=== PATIENT | male | born 1960 | race Caucasian/White ===

== ENCOUNTER 2021-10-30 09:44 | Inpatient (IN) | payer SELFPAY ==
[2021-10-30] MEDS ORDERED: Sodium Chloride 0.9% 10 ML Syringe FLUSH PRN (10:16)
[2021-10-30] MEDS ORDERED: Ondansetron 4 MG/2 ML SDV IVPUSH ONE (10:16)
[2021-10-30] MEDS ORDERED: Sodium Chloride 0.9% 1,000 ML IV SCH (10:30)
--- NOTE | 2021-10-30 10:47 | EDM.PDOC ---
ED HPI GENERAL MEDICAL PROBLEM - General Chief Complaint: Gastrointestinal Problem Stated Complaint: VOMITING Time Seen by Provider: 10/30/21 10:47 - History of Present Illness INITIAL COMMENTS - FREE TEXT/NARRATIVE: 61-year-old male presents the emergency room with nausea and vomiting. This started this last . On Tuesday's felt bad enough that he stopped his Metformin. He has not had much to eat or drink since that time. Since Tuesday he has developed quite a bit of back pain. He has not had chest pain or chest pressure with this. However he is a diabetic. Patient has not had the vaccine for Covid. He has had a mild cough nonproductive. He has had diminished appetite but no significant nausea or vomiting. No diarrhea no loss of taste or smell - Related Data Allergies Allergy/AdvReac Type Severity Reaction Status Date / Time No Known Allergies Allergy Verified 10/30/21 10:49 ED ROS GENERAL - Review of Systems Review Of Systems: See Below Constitutional: Reports: No Symptoms HEENT: Reports: No Symptoms Respiratory: Reports: Cough. Denies: Shortness of Breath, Pleuritic Chest Pain Cardiovascular: Reports: No Symptoms Endocrine: Reports: No Symptoms GI/Abdominal: Reports: No Symptoms : Reports: No Symptoms Musculoskeletal: Reports: No Symptoms Skin: Reports: No Symptoms Neurological: Reports: No Symptoms ED EXAM, GENERAL - Physical Exam Exam: See Below Exam Limited By: No Limitations General Appearance: Alert, No Apparent Distress Eye Exam: Bilateral Eye: EOMI, Normal Inspection, PERRL Ears: Normal External Exam, Normal Canal, Hearing Grossly Normal, Normal TMs Nose: Normal Inspection, Normal Mucosa, No Blood Throat/Mouth: Normal Inspection, Normal Lips, Normal Gums, Normal Oropharynx, Normal Voice, No Airway Compromise Head: Atraumatic, Normocephalic Neck: Normal Inspection, Supple, Non-Tender, Full Range of Motion, Other (Patient has pain at the base of his neck down into the upper thoracic spine no spinous process discomfort with palpation). No: Lymphadenopathy (L), Lymphadenopathy (R) Respiratory/Chest: No Respiratory Distress, Lungs Clear, Normal Breath Sounds Cardiovascular: Regular Rate, Rhythm, No Edema, No Murmur GI/Abdominal: Normal Bowel Sounds, Soft, Non-Tender Back Exam: Normal Inspection. No: CVA Tenderness (L), CVA Tenderness (R) Extremities: Normal Inspection, No Pedal Edema Neurological: Alert, Oriented, Normal Cognition Skin Exam: Warm, Dry, Intact, Normal Color, No Rash Course - Vital Signs Last Recorded V/S: Last Vital Signs Temp 36.5 C 10/30/21 10:23 Pulse 115 H 10/30/21 15:45 Resp 31 H 10/30/21 15:45 BP 133/60 10/30/21 15:45 Pulse Ox 100 10/30/21 15:45 - Orders/Labs/Meds Orders: Active Orders 24 hr Category Date Time Status Accu Check [Blood Glucose Check, Bedside] [RC] Q1HR Care 10/30/21 11:06 Active Communication Order [RC] ASDIRECTED Care 10/30/21 10:18 Active Communication Order [RC] ASDIRECTED Care 10/30/21 10:18 Active Communication Order [RC] ASDIRECTED Care 10/30/21 10:18 Active Communication Order [RC] ASDIRECTED Care 10/30/21 10:18 Active Orthostatic Vital Signs [RC] ASDIRECTED Care 10/30/21 10:18 Active Peripheral IV Care [RC] . DIRECTED Care 10/30/21 10:18 Active BASIC METABOLIC PANEL,BMP [CHEM] Timed Lab 10/30/21 16:30 Ordered MAGNESIUM [CHEM] Timed Lab 10/30/21 16:30 Ordered UA RFX GUIDO AND CULT IF INDIC [URIN] Stat Lab 10/30/21 13:19 Ordered Dextrose 5%-0.9% NaCl with KCl [D5 NS with 20 mEq KCl] Med 10/30/21 15:30 Ordered 1,000 ml IV ASDIRECTED Insulin Regular, Human [HumuLIN R] 100 unit Med 10/30/21 16:00 Ordered Sodium Chloride 0.9% [Normal Saline] 99 ml IV TITRATE Sodium Chloride 0.9% [Saline Flush] Med 10/30/21 10:16 Active 10 ml FLUSH ASDIRECTED PRN Peripheral IV Insertion Adult [OM.PC] Stat Oth 10/30/21 10:18 Ordered Medication Orders Potassium Chloride/Dextrose/Sod Cl (D5 Ns With 20 Meq Kcl) 1,000 mls @ 200 mls/hr IV ASDIRECTED JUAN CARLOS Last Admin: 10/30/21 15:50 Dose: 200 mls/hr Documented by: ISHA Insulin Human Regular 100 unit (/ Sodium Chloride) 100 mls @ 1.27 mls/hr IV TITRATE JUAN CARLOS; Protocol Last Admin: 10/30/21 16:18 Dose: 0.02 units/kg/hr, 1.27 mls/hr Documented by: Sodium Chloride (Sodium Chloride 0.9% 10 Ml Syringe) 10 ml FLUSH ASDIRECTED PRN PRN Reason: Keep Vein Open Last Admin: 10/30/21 10:58 Dose: 10 ml Documented by: ROBINCHDavonte Labs: Laboratory Tests 10/30/21 10/30/21 10/30/21 Range/Units 10:17 10:20 10:36 WBC (4.23-9.07) K/mm3 RBC (4.63-6.08) M/mm3 Hgb (13.7-17.5) gm/dl Hct (40.1-51.0) % MCV (79.0-92.2) fl MCH (25.7-32.2) pg MCHC (32.2-35.5) g/dl RDW Std Deviation (35.1-43.9) fL Plt Count (163-337) K/mm3 MPV (9.4-12.3) fl Neut % (Auto) (34.0-67.9) % Lymph % (Auto) (21.8-53.1) % Wilkin % (Auto) (5.3-12.2) % Eos % (Auto) (0.8-7.0) Baso % (Auto) (0.1-1.2) % Neut # (Auto) (1.78-5.38) K/mm3 Lymph # (Auto) (1.32-3.57) K/mm3 Wilkin # (Auto) (0.30-0.82) K/mm3 Eos # (Auto) (0.04-0.54) K/mm3 Baso # (Auto) (0.01-0.08) K/mm3 D-Dimer, Quantitative (0.19-0.50) mg/L Puncture Site ABG pH (7.35-7.45) ABG pCO2 (35.0-45.0) mmHg ABG pO2 (80.0-100.0) mmHg ABG HCO3 (22.0-26.0) meq/L ABG O2 Saturation (96.0-97.0) % ABG Base Excess (-2-2.0) Adalberto Test O2 Delivery Device Oxygen Flow Rate Sodium (136-145) mEq/L Potassium (3.5-5.1) mEq/L Chloride (98-107) mEq/L Carbon Dioxide (21-32) mEq/L Anion Gap (5-15) BUN (7-18) mg/dL Creatinine (0.7-1.3) mg/dL Est Cr Clr Drug Dosing mL/min Estimated GFR (MDRD) (>60) mL/min BUN/Creatinine Ratio (14-18) Glucose (70-99) mg/dL POC Glucose 427 H* (70-99) mg/dL Calcium (8.5-10.1) mg/dL Magnesium (1.8-2.4) mg/dL Ferritin (26-388) ng/ml Total Bilirubin (0.2-1.0) mg/dL AST (15-37) U/L ALT (16-63) U/L Alkaline Phosphatase (46-116) U/L Lactate Dehydrogenase (85-227) U/L C-Reactive Protein (<1.0) mg/dL Total Protein (6.4-8.2) g/dl Albumin (3.4-5.0) g/dl Globulin gm/dL Albumin/Globulin Ratio (1-2) Lipase (73-393) U/L Ketones 19.7 (0.0-0.3) mM SARS-CoV-2 RNA (ALIRIO) Positive H (NEGATIVE) 10/30/21 10/30/21 10/30/21 Range/Units 10:37 10:37 10:37 WBC 7.81 (4.23-9.07) K/mm3 RBC 4.79 (4.63-6.08) M/mm3 Hgb 15.5 D (13.7-17.5) gm/dl Hct 44.9 (40.1-51.0) % MCV 93.7 H (79.0-92.2) fl MCH 32.4 H (25.7-32.2) pg MCHC 34.5 (32.2-35.5) g/dl RDW Std Deviation 44.0 H (35.1-43.9) fL Plt Count 304 (163-337) K/mm3 MPV 9.7 (9.4-12.3) fl Neut % (Auto) 78.9 H (34.0-67.9) % Lymph % (Auto) 8.3 L (21.8-53.1) % Wilkin % (Auto) 12.7 H (5.3-12.2) % Eos % (Auto) 0 L (0.8-7.0) Baso % (Auto) 0.0 L (0.1-1.2) % Neut # (Auto) 6.16 H (1.78-5.38) K/mm3 Lymph # (Auto) 0.65 L (1.32-3.57) K/mm3 Wilkin # (Auto) 0.99 H (0.30-0.82) K/mm3 Eos # (Auto) 0.00 L (0.04-0.54) K/mm3 Baso # (Auto) 0.00 L (0.01-0.08) K/mm3 D-Dimer, Quantitative (0.19-0.50) mg/L Puncture Site ABG pH (7.35-7.45) ABG pCO2 (35.0-45.0) mmHg ABG pO2 (80.0-100.0) mmHg ABG HCO3 (22.0-26.0) meq/L ABG O2 Saturation (96.0-97.0) % ABG Base Excess (-2-2.0) Adalberto Test O2 Delivery Device Oxygen Flow Rate Sodium 135 L (136-145) mEq/L Potassium 5.6 H D (3.5-5.1) mEq/L Chloride 92 L D (98-107) mEq/L Carbon Dioxide 9 L D (21-32) mEq/L Anion Gap 39.6 H (5-15) BUN 44 H D (7-18) mg/dL Creatinine 2.1 H (0.7-1.3) mg/dL Est Cr Clr Drug Dosing 32.76 mL/min Estimated GFR (MDRD) 32 (>60) mL/min BUN/Creatinine Ratio 21.0 H (14-18) Glucose 483 H* (70-99) mg/dL POC Glucose (70-99) mg/dL Calcium 8.9 (8.5-10.1) mg/dL Magnesium 1.8 (1.8-2.4) mg/dL Ferritin (26-388) ng/ml Total Bilirubin 0.6 (0.2-1.0) mg/dL AST 14 L (15-37) U/L ALT 19 (16-63) U/L Alkaline Phosphatase 95 (46-116) U/L Lactate Dehydrogenase 196 (85-227) U/L C-Reactive Protein 1.9 H* (<1.0) mg/dL Total Protein 8.0 (6.4-8.2) g/dl Albumin 3.6 (3.4-5.0) g/dl Globulin 4.4 gm/dL Albumin/Globulin Ratio 0.8 L (1-2) Lipase 139 (73-393) U/L Ketones (0.0-0.3) mM SARS-CoV-2 RNA (ALIRIO) (NEGATIVE) 10/30/21 10/30/21 10/30/21 Range/Units 10:37 10:37 10:59 WBC (4.23-9.07) K/mm3 RBC (4.63-6.08) M/mm3 Hgb (13.7-17.5) gm/dl Hct (40.1-51.0) % MCV (79.0-92.2) fl MCH (25.7-32.2) pg MCHC (32.2-35.5) g/dl RDW Std Deviation (35.1-43.9) fL Plt Count (163-337) K/mm3 MPV (9.4-12.3) fl Neut % (Auto) (34.0-67.9) % Lymph % (Auto) (21.8-53.1) % Wilkin % (Auto) (5.3-12.2) % Eos % (Auto) (0.8-7.0) Baso % (Auto) (0.1-1.2) % Neut # (Auto) (1.78-5.38) K/mm3 Lymph # (Auto) (1.32-3.57) K/mm3 Wilkin # (Auto) (0.30-0.82) K/mm3 Eos # (Auto) (0.04-0.54) K/mm3 Baso # (Auto) (0.01-0.08) K/mm3 D-Dimer, Quantitative 1.21 H (0.19-0.50) mg/L Puncture Site Lt radial ABG pH 7.15 L* (7.35-7.45) ABG pCO2 10.2 L* (35.0-45.0) mmHg ABG pO2 103.0 H (80.0-100.0) mmHg ABG HCO3 3.6 L (22.0-26.0) meq/L ABG O2 Saturation 97.9 H (96.0-97.0) % ABG Base Excess -25.1 L (-2-2.0) Adalberto Test O2 Delivery Device Room air Oxygen Flow Rate 0.0 Sodium (136-145) mEq/L Potassium (3.5-5.1) mEq/L Chloride (98-107) mEq/L Carbon Dioxide (21-32) mEq/L Anion Gap (5-15) BUN (7-18) mg/dL Creatinine (0.7-1.3) mg/dL Est Cr Clr Drug Dosing mL/min Estimated GFR (MDRD) (>60) mL/min BUN/Creatinine Ratio (14-18) Glucose (70-99) mg/dL POC Glucose (70-99) mg/dL Calcium (8.5-10.1) mg/dL Magnesium (1.8-2.4) mg/dL Ferritin 406 H (26-388) ng/ml Total Bilirubin (0.2-1.0) mg/dL AST (15-37) U/L ALT (16-63) U/L Alkaline Phosphatase (46-116) U/L Lactate Dehydrogenase (85-227) U/L C-Reactive Protein (<1.0) mg/dL Total Protein (6.4-8.2) g/dl Albumin (3.4-5.0) g/dl Globulin gm/dL Albumin/Globulin Ratio (1-2) Lipase (73-393) U/L Ketones (0.0-0.3) mM SARS-CoV-2 RNA (ALIRIO) (NEGATIVE) 10/30/21 10/30/21 10/30/21 Range/Units 11:23 12:23 12:24 WBC (4.23-9.07) K/mm3 RBC (4.63-6.08) M/mm3 Hgb (13.7-17.5) gm/dl Hct (40.1-51.0) % MCV (79.0-92.2) fl MCH (25.7-32.2) pg MCHC (32.2-35.5) g/dl RDW Std Deviation (35.1-43.9) fL Plt Count (163-337) K/mm3 MPV (9.4-12.3) fl Neut % (Auto) (34.0-67.9) % Lymph % (Auto) (21.8-53.1) % Wilkin % (Auto) (5.3-12.2) % Eos % (Auto) (0.8-7.0) Baso % (Auto) (0.1-1.2) % Neut # (Auto) (1.78-5.38) K/mm3 Lymph # (Auto) (1.32-3.57) K/mm3 Wilkin # (Auto) (0.30-0.82) K/mm3 Eos # (Auto) (0.04-0.54) K/mm3 Baso # (Auto) (0.01-0.08) K/mm3 D-Dimer, Quantitative (0.19-0.50) mg/L Puncture Site ABG pH (7.35-7.45) ABG pCO2 (35.0-45.0) mmHg ABG pO2 (80.0-100.0) mmHg ABG HCO3 (22.0-26.0) meq/L ABG O2 Saturation (96.0-97.0) % ABG Base Excess (-2-2.0) Adalberto Test O2 Delivery Device Oxygen Flow Rate Sodium 138 (136-145) mEq/L Potassium 4.3 (3.5-5.1) mEq/L Chloride 99 (98-107) mEq/L Carbon Dioxide 9 L (21-32) mEq/L Anion Gap 34.3 H (5-15) BUN 42 H (7-18) mg/dL Creatinine 1.9 H (0.7-1.3) mg/dL Est Cr Clr Drug Dosing 36.21 mL/min Estimated GFR (MDRD) 36 (>60) mL/min BUN/Creatinine Ratio 22.1 H (14-18) Glucose 347 H (70-99) mg/dL POC Glucose 482 H* 371 H (70-99) mg/dL Calcium 8.5 (8.5-10.1) mg/dL Magnesium (1.8-2.4) mg/dL Ferritin (26-388) ng/ml Total Bilirubin (0.2-1.0) mg/dL AST (15-37) U/L ALT (16-63) U/L Alkaline Phosphatase (46-116) U/L Lactate Dehydrogenase (85-227) U/L C-Reactive Protein (<1.0) mg/dL Total Protein (6.4-8.2) g/dl Albumin (3.4-5.0) g/dl Globulin gm/dL Albumin/Globulin Ratio (1-2) Lipase (73-393) U/L Ketones (0.0-0.3) mM SARS-CoV-2 RNA (ALIRIO) (NEGATIVE) 10/30/21 10/30/21 10/30/21 Range/Units 13:32 14:06 14:45 WBC (4.23-9.07) K/mm3 RBC (4.63-6.08) M/mm3 Hgb (13.7-17.5) gm/dl Hct (40.1-51.0) % MCV (79.0-92.2) fl MCH (25.7-32.2) pg MCHC (32.2-35.5) g/dl RDW Std Deviation (35.1-43.9) fL Plt Count (163-337) K/mm3 MPV (9.4-12.3) fl Neut % (Auto) (34.0-67.9) % Lymph % (Auto) (21.8-53.1) % Wilkin % (Auto) (5.3-12.2) % Eos % (Auto) (0.8-7.0) Baso % (Auto) (0.1-1.2) % Neut # (Auto) (1.78-5.38) K/mm3 Lymph # (Auto) (1.32-3.57) K/mm3 Wilkin # (Auto) (0.30-0.82) K/mm3 Eos # (Auto) (0.04-0.54) K/mm3 Baso # (Auto) (0.01-0.08) K/mm3 D-Dimer, Quantitative (0.19-0.50) mg/L Puncture Site ABG pH 7.18 L* (7.35-7.45) ABG pCO2 15.8 L* (35.0-45.0) mmHg ABG pO2 144.0 H (80.0-100.0) mmHg ABG HCO3 5.7 L (22.0-26.0) meq/L ABG O2 Saturation 98.4 H (96.0-97.0) % ABG Base Excess -21.7 L (-2-2.0) Adalberto Test Positive O2 Delivery Device Oxygen Flow Rate Sodium (136-145) mEq/L Potassium (3.5-5.1) mEq/L Chloride (98-107) mEq/L Carbon Dioxide (21-32) mEq/L Anion Gap (5-15) BUN (7-18) mg/dL Creatinine (0.7-1.3) mg/dL Est Cr Clr Drug Dosing mL/min Estimated GFR (MDRD) (>60) mL/min BUN/Creatinine Ratio (14-18) Glucose (70-99) mg/dL POC Glucose 215 H 182 H (70-99) mg/dL Calcium (8.5-10.1) mg/dL Magnesium (1.8-2.4) mg/dL Ferritin (26-388) ng/ml Total Bilirubin (0.2-1.0) mg/dL AST (15-37) U/L ALT (16-63) U/L Alkaline Phosphatase (46-116) U/L Lactate Dehydrogenase (85-227) U/L C-Reactive Protein (<1.0) mg/dL Total Protein (6.4-8.2) g/dl Albumin (3.4-5.0) g/dl Globulin gm/dL Albumin/Globulin Ratio (1-2) Lipase (73-393) U/L Ketones (0.0-0.3) mM SARS-CoV-2 RNA (ALIRIO) (NEGATIVE) 10/30/21 Range/Units 15:56 WBC (4.23-9.07) K/mm3 RBC (4.63-6.08) M/mm3 Hgb (13.7-17.5) gm/dl Hct (40.1-51.0) % MCV (79.0-92.2) fl MCH (25.7-32.2) pg MCHC (32.2-35.5) g/dl RDW Std Deviation (35.1-43.9) fL Plt Count (163-337) K/mm3 MPV (9.4-12.3) fl Neut % (Auto) (34.0-67.9) % Lymph % (Auto) (21.8-53.1) % Wilkin % (Auto) (5.3-12.2) % Eos % (Auto) (0.8-7.0) Baso % (Auto) (0.1-1.2) % Neut # (Auto) (1.78-5.38) K/mm3 Lymph # (Auto) (1.32-3.57) K/mm3 Wilkin # (Auto) (0.30-0.82) K/mm3 Eos # (Auto) (0.04-0.54) K/mm3 Baso # (Auto) (0.01-0.08) K/mm3 D-Dimer, Quantitative (0.19-0.50) mg/L Puncture Site ABG pH (7.35-7.45) ABG pCO2 (35.0-45.0) mmHg ABG pO2 (80.0-100.0) mmHg ABG HCO3 (22.0-26.0) meq/L ABG O2 Saturation (96.0-97.0) % ABG Base Excess (-2-2.0) Adalberto Test O2 Delivery Device Oxygen Flow Rate Sodium (136-145) mEq/L Potassium (3.5-5.1) mEq/L Chloride (98-107) mEq/L Carbon Dioxide (21-32) mEq/L Anion Gap (5-15) BUN (7-18) mg/dL Creatinine (0.7-1.3) mg/dL Est Cr Clr Drug Dosing mL/min Estimated GFR (MDRD) (>60) mL/min BUN/Creatinine Ratio (14-18) Glucose (70-99) mg/dL POC Glucose 210 H (70-99) mg/dL Calcium (8.5-10.1) mg/dL Magnesium (1.8-2.4) mg/dL Ferritin (26-388) ng/ml Total Bilirubin (0.2-1.0) mg/dL AST (15-37) U/L ALT (16-63) U/L Alkaline Phosphatase (46-116) U/L Lactate Dehydrogenase (85-227) U/L C-Reactive Protein (<1.0) mg/dL Total Protein (6.4-8.2) g/dl Albumin (3.4-5.0) g/dl Globulin gm/dL Albumin/Globulin Ratio (1-2) Lipase (73-393) U/L Ketones (0.0-0.3) mM SARS-CoV-2 RNA (ALIRIO) (NEGATIVE) Meds: Medications Generic Name Dose Route Start Last Admin Trade Name Odell PRN Reason Stop Dose Admin Potassium Chloride/Dextrose/Sod Cl 1,000 mls @ 200 mls/hr 10/30/21 15:30 10/30/21 15:50 D5 Ns With 20 Meq Kcl IV 200 mls/hr ASDIRECTED JUAN CARLOS Administration Insulin Human Regular 100 unit 100 mls @ 1.27 mls/hr 10/30/21 16:00 10/30/21 16:18 / Sodium Chloride IV 0.02 units/kg/hr TITRATE JUAN CARLOS 1.27 mls/hr Administration Protocol 0.02 UNITS/KG/HR Sodium Chloride 10 ml 10/30/21 10:16 10/30/21 10:58 Sodium Chloride 0.9% 10 Ml Syringe FLUSH 10 ml ASDIRECTED PRN Administration Keep Vein Open Discontinued Medications Generic Name Dose Route Start Last Admin Trade Name Odell PRN Reason Stop Dose Admin Sodium Chloride 1,000 mls @ 999 mls/hr 10/30/21 10:30 10/30/21 10:56 Normal Saline IV 10/30/21 11:29 999 mls/hr Q1H JUAN CARLOS Administration Insulin Human Regular 100 unit 100 mls @ 1.27 mls/hr 10/30/21 11:15 10/30/21 11:32 / Sodium Chloride IV 0.1 units/kg/hr TITRATE JUAN CARLOS 6.35 mls/hr Administration Protocol 0.02 UNITS/KG/HR Sodium Chloride 1,000 mls @ 999 mls/hr 10/30/21 12:27 10/30/21 12:34 Normal Saline IV 10/30/21 13:27 999 mls/hr ONETIME ONE Administration Sodium Chloride 1,000 mls @ 999 mls/hr 10/30/21 14:06 10/30/21 14:15 Normal Saline IV 10/30/21 15:06 999 mls/hr ONETIME ONE Administration Insulin Human Regular 6 unit 10/30/21 11:04 10/30/21 11:23 Insulin Regular, Human 100 Units/Ml 3 Ml Vial IV 10/30/21 11:05 6 unit ONETIME ONE Administration Ondansetron HCl 4 mg 10/30/21 10:16 10/30/21 10:57 Ondansetron 4 Mg/2 Ml Sdv IVPUSH 10/30/21 10:17 4 mg ONETIME ONE Administration - Re-Assessments/Exams Free Text/Narrative Re-Assessment/Exam: 10/30/21 14:14 Patient was started on an insulin bolus and drip his blood sugars dropped much quicker than I expected him to the drip was stopped. He has had 2 L in and feels much better his blood sugar was 215 down from 483 the drip was stopped I expect him to continue going down we will keep a close eye on this. The patient feels much better he still has a little bit of a sore throat and his back pain is gone. We will recheck his ABGs give him 1/3 L of NS as he is still dry. If his ABGs show fair amount of correction anticipate admission, hopefully here. 10/30/21 16:01 Patient's ketones are still too high. His blood sugar came down nicely however we have still got some work to do. Case was reviewed with Dr. Cruz, who thinks we have a bed for the patient. we will continue fluids D5 NS with 20 of K2 100 cc an hour with a light insulin drip 0.02 units/kg/h with a very close eye on his blood sugar and electrolytes. 10/30/21 16:22 I had a discussion with Dr. Cruz with this patient's high risk for complication secondary to the COVID infection we discussed the pros and cons we will offer him Regeneron. I discussed this with the patient and he would like to proceed with this understanding and is available on a emergency use basis. I gave him the fact sheet and mentioned in no uncertain terms that it is approved on an emergency use authorization and has not been fully tested or reviewed by the FDA did discuss potential risks and adverse reactions and discussed other treatment options he has no questions to ask and would like to pursue this treatment at this time. Departure - Departure Time of Disposition: 16:07 Disposition: Admitted As Inpatient 65 Clinical Impression: Diabetic ketoacidosis associated with type 2 diabetes mellitus - Discharge Information Referrals: PCP,None [Primary Care Provider] - Forms: ED Department Discharge Sepsis Event Note (ED) - Evaluation Sepsis Screening Result: No Definite Risk - Focused Exam Vital Signs: Vital Signs Temp Pulse Resp BP Pulse Ox 10/30/21 15:45 115 H 31 H 133/60 100 10/30/21 14:45 112 H 26 H 129/70 100 10/30/21 12:00 111 H 31 H 125/81 100 10/30/21 11:15 115 H 34 H 156/71 H 100 10/30/21 10:23 36.5 C 122 H 25 H 158/68 H 100 - My Orders Last 24 Hours: My Active Orders 10/30/21 10:16 Sodium Chloride 0.9% [Saline Flush] 10 ml FLUSH ASDIRECTED PRN 10/30/21 10:18 Communication Order [RC] ASDIRECTED Communication Order [RC] ASDIRECTED Communication Order [RC] ASDIRECTED Communication Order [RC] ASDIRECTED Orthostatic Vital Signs [RC] ASDIRECTED Peripheral IV Care [RC] . DIRECTED Peripheral IV Insertion Adult [OM.PC] Stat 10/30/21 11:06 Accu Check [Blood Glucose Check, Bedside] [RC] Q1HR 10/30/21 13:19 UA RFX GUIDO AND CULT IF INDIC [URIN] Stat 10/30/21 15:30 Dextrose 5%-0.9% NaCl with KCl [D5 NS with 20 mEq KCl] 1,000 ml IV ASDIRECTED 10/30/21 16:00 Insulin Regular, Human [HumuLIN R] 100 unit Sodium Chloride 0.9% [Normal Saline] 99 ml IV TITRATE 10/30/21 16:30 BASIC METABOLIC PANEL,BMP [CHEM] Timed MAGNESIUM [CHEM] Timed - Assessment/Plan Last 24 Hours: My Active Orders 10/30/21 10:16 Sodium Chloride 0.9% [Saline Flush] 10 ml FLUSH ASDIRECTED PRN 10/30/21 10:18 Communication Order [RC] ASDIRECTED Communication Order [RC] ASDIRECTED Communication Order [RC] ASDIRECTED Communication Order [RC] ASDIRECTED Orthostatic Vital Signs [RC] ASDIRECTED Peripheral IV Care [RC] . DIRECTED Peripheral IV Insertion Adult [OM.PC] Stat 10/30/21 11:06 Accu Check [Blood Glucose Check, Bedside] [RC] Q1HR 10/30/21 13:19 UA RFX GUIDO AND CULT IF INDIC [URIN] Stat 10/30/21 15:30 Dextrose 5%-0.9% NaCl with KCl [D5 NS with 20 mEq KCl] 1,000 ml IV ASDIRECTED 10/30/21 16:00 Insulin Regular, Human [HumuLIN R] 100 unit Sodium Chloride 0.9% [Normal Saline] 99 ml IV TITRATE 10/30/21 16:30 BASIC METABOLIC PANEL,BMP [CHEM] Timed MAGNESIUM [CHEM] Timed
[2021-10-30] MEDS ORDERED: Insulin Regular, Human 100 Units/ML 3 ML Vial IV ONE (11:04)
[2021-10-30] MEDS ORDERED: Sodium Chloride 0.9% 1,000 ML IV ONE ×2 (12:27→14:06)
--- NOTE | 2021-10-30 13:00 | CR ---
Chest: Frontal view of the chest was obtained. Comparison: No prior chest imaging is available. Heart size is slightly prominent. Tortuous thoracic aorta is seen. Lungs are clear with no acute parenchymal change. Slight carotid artery calcification is partially seen within the neck. Bony structures show nothing acute. Impression: 1. Findings as described above. 2. Nothing acute is appreciated. Diagnostic code #2
[2021-10-30] MEDS: Dextrose 5%-0.9% NaCl with KCl 1,000 ML IV SCH ×2 (15:50→21:19)
[2021-10-30] MEDS ORDERED: diphenhydrAMINE 50 MG/ML SDV IVPUSH PRN (16:25)
[2021-10-30] MEDS ORDERED: Famotidine 20 MG/2 ML SDV IVPUSH PRN (16:25)
[2021-10-30] MEDS ORDERED: EPINEPHrine 1 MG/ML SDV IM PRN (16:25)
[2021-10-30] MEDS ORDERED: methylPREDNISolone Sodium Succinate 125 MG/2 ML SDV IVPUSH PRN (16:25)
[2021-10-30] MEDS ORDERED: Sodium Chloride 0.9% 10 ML Syringe FLUSH SCH (16:30)
[2021-10-30] MEDS ORDERED: Magnesium Sulfate/Water 4 GM in Premix Bag 1 BAG IV ONE (19:06)
[2021-10-30] MEDS ORDERED: Ondansetron 4 MG/2 ML SDV IV PRN (20:31)
[2021-10-30] MEDS ORDERED: Acetaminophen 325 MG Tab PO PRN (20:31)
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
[2021-10-30] MEDS: D5 1/2 NS w/ 20 mEq/L KCl 1,000 ML IV SCH (23:08)
[2021-10-31] MEDS: D5 1/2 NS w/ 20 mEq/L KCl 1,000 ML IV SCH ×4 (04:12→20:29)
[2021-10-31] MEDS: Enoxaparin 40 MG/0.4 ML Syringe SUBCUT SCH (08:52)
--- NOTE | 2021-10-31 13:45 | PCM.PN ---
- General Info Date of Service: 10/31/21 Admission Dx/Problem (Free Text): Admission Diagnosis/Problem Admission Diagnosis/Problem Ketoacidosis in patient with type 2 diabetes mellitus Subjective Update: Patient is doing well. He is still on D5 half-normal saline with 20 of KCl and insulin drip. Anion gap is closing. His appetite is returning. Functional Status: Reports: Pain Controlled - Review of Systems General: Reports: No Symptoms HEENT: Reports: No Symptoms Pulmonary: Reports: No Symptoms Cardiovascular: Reports: No Symptoms Musculoskeletal: Reports: No Symptoms - Patient Data Vitals - Most Recent: Last Vital Signs Temp 97 F 10/31/21 08:54 Pulse 100 10/31/21 08:01 Resp 16 10/31/21 08:54 BP 157/82 H 10/31/21 08:00 Pulse Ox 100 10/31/21 08:54 Weight - Most Recent: 139 lb I&O - Last 24 Hours: Intake & Output 10/30/21 10/31/21 10/31/21 22:59 06:59 14:59 Intake Total 1811 Output Total 500 600 Balance -500 1211 Lab Results Last 24 Hours: Laboratory Results - last 24 hr 10/30/21 10/30/21 10/30/21 Range/Units 13:32 14:06 14:45 WBC (4.23-9.07) K/mm3 RBC (4.63-6.08) M/mm3 Hgb (13.7-17.5) gm/dl Hct (40.1-51.0) % MCV (79.0-92.2) fl MCH (25.7-32.2) pg MCHC (32.2-35.5) g/dl RDW Std Deviation (35.1-43.9) fL Plt Count (163-337) K/mm3 MPV (9.4-12.3) fl Neut % (Auto) (34.0-67.9) % Lymph % (Auto) (21.8-53.1) % [place] % (Auto) (5.3-12.2) % Eos % (Auto) (0.8-7.0) Baso % (Auto) (0.1-1.2) % Neut # (Auto) (1.78-5.38) K/mm3 Lymph # (Auto) (1.32-3.57) K/mm3 [place] # (Auto) (0.30-0.82) K/mm3 Eos # (Auto) (0.04-0.54) K/mm3 Baso # (Auto) (0.01-0.08) K/mm3 D-Dimer, Quantitative (0.19-0.50) mg/L Puncture Site ABG pH 7.18 L* (7.35-7.45) ABG pCO2 15.8 L* (35.0-45.0) mmHg ABG pO2 144.0 H (80.0-100.0) mmHg ABG HCO3 5.7 L (22.0-26.0) meq/L ABG O2 Saturation 98.4 H (96.0-97.0) % ABG Base Excess -21.7 L (-2-2.0) Adalberto Test Positive A-a Gradient mmHg O2 Delivery Device FiO2 (21.00-100.00) % Sodium (136-145) mEq/L Potassium (3.5-5.1) mEq/L Chloride (98-107) mEq/L Carbon Dioxide (21-32) mEq/L Anion Gap (5-15) BUN (7-18) mg/dL Creatinine (0.7-1.3) mg/dL Est Cr Clr Drug Dosing mL/min Estimated GFR (MDRD) (>60) mL/min BUN/Creatinine Ratio (14-18) Glucose (70-99) mg/dL POC Glucose 215 H 182 H (70-99) mg/dL Calcium (8.5-10.1) mg/dL Phosphorus (2.6-4.7) mg/dL Magnesium (1.8-2.4) mg/dL Total Bilirubin (0.2-1.0) mg/dL AST (15-37) U/L ALT (16-63) U/L Alkaline Phosphatase (46-116) U/L C-Reactive Protein (<1.0) mg/dL Total Protein (6.4-8.2) g/dl Albumin (3.4-5.0) g/dl Globulin gm/dL Albumin/Globulin Ratio (1-2) Urine Color (Yellow) Urine Appearance (Clear) Urine pH (5.0-8.0) Ur Specific [place] (1.005-1.030) Urine Protein (Negative) Urine Glucose (UA) (Negative) Urine Ketones (Negative) Urine Occult Blood (Negative) Urine Nitrite (Negative) Urine Bilirubin (Negative) Urine Urobilinogen (0.2-1.0) Ur Leukocyte Esterase (Negative) U Hyaline Cast (Auto) (0-5) /lpf Urine RBC (0-5) /hpf Urine WBC (0-5) /hpf Ur Epithelial Cells (0-5) /hpf Urine Bacteria (FEW) /hpf Urine Mucus (FEW) /hpf 10/30/21 10/30/21 10/30/21 Range/Units 15:56 16:31 17:46 WBC (4.23-9.07) K/mm3 RBC (4.63-6.08) M/mm3 Hgb (13.7-17.5) gm/dl Hct (40.1-51.0) % MCV (79.0-92.2) fl MCH (25.7-32.2) pg MCHC (32.2-35.5) g/dl RDW Std Deviation (35.1-43.9) fL Plt Count (163-337) K/mm3 MPV (9.4-12.3) fl Neut % (Auto) (34.0-67.9) % Lymph % (Auto) (21.8-53.1) % [place] % (Auto) (5.3-12.2) % Eos % (Auto) (0.8-7.0) Baso % (Auto) (0.1-1.2) % Neut # (Auto) (1.78-5.38) K/mm3 Lymph # (Auto) (1.32-3.57) K/mm3 [place] # (Auto) (0.30-0.82) K/mm3 Eos # (Auto) (0.04-0.54) K/mm3 Baso # (Auto) (0.01-0.08) K/mm3 D-Dimer, Quantitative (0.19-0.50) mg/L Puncture Site ABG pH (7.35-7.45) ABG pCO2 (35.0-45.0) mmHg ABG pO2 (80.0-100.0) mmHg ABG HCO3 (22.0-26.0) meq/L ABG O2 Saturation (96.0-97.0) % ABG Base Excess (-2-2.0) Adalberto Test A-a Gradient mmHg O2 Delivery Device FiO2 (21.00-100.00) % Sodium 139 (136-145) mEq/L Potassium 4.4 (3.5-5.1) mEq/L Chloride 103 (98-107) mEq/L Carbon Dioxide 9 L (21-32) mEq/L Anion Gap 31.4 H (5-15) BUN 33 H (7-18) mg/dL Creatinine 1.4 H (0.7-1.3) mg/dL Est Cr Clr Drug Dosing 49.14 mL/min Estimated GFR (MDRD) 51 (>60) mL/min BUN/Creatinine Ratio 23.6 H (14-18) Glucose 250 H (70-99) mg/dL POC Glucose 210 H 243 H (70-99) mg/dL Calcium 7.8 L (8.5-10.1) mg/dL Phosphorus (2.6-4.7) mg/dL Magnesium 1.6 L (1.8-2.4) mg/dL Total Bilirubin (0.2-1.0) mg/dL AST (15-37) U/L ALT (16-63) U/L Alkaline Phosphatase (46-116) U/L C-Reactive Protein (<1.0) mg/dL Total Protein (6.4-8.2) g/dl Albumin (3.4-5.0) g/dl Globulin gm/dL Albumin/Globulin Ratio (1-2) Urine Color (Yellow) Urine Appearance (Clear) Urine pH (5.0-8.0) Ur Specific [place] (1.005-1.030) Urine Protein (Negative) Urine Glucose (UA) (Negative) Urine Ketones (Negative) Urine Occult Blood (Negative) Urine Nitrite (Negative) Urine Bilirubin (Negative) Urine Urobilinogen (0.2-1.0) Ur Leukocyte Esterase (Negative) U Hyaline Cast (Auto) (0-5) /lpf Urine RBC (0-5) /hpf Urine WBC (0-5) /hpf Ur Epithelial Cells (0-5) /hpf Urine Bacteria (FEW) /hpf Urine Mucus (FEW) /hpf 10/30/21 10/30/21 10/30/21 Range/Units 18:57 19:35 20:23 WBC (4.23-9.07) K/mm3 RBC (4.63-6.08) M/mm3 Hgb (13.7-17.5) gm/dl Hct (40.1-51.0) % MCV (79.0-92.2) fl MCH (25.7-32.2) pg MCHC (32.2-35.5) g/dl RDW Std Deviation (35.1-43.9) fL Plt Count (163-337) K/mm3 MPV (9.4-12.3) fl Neut % (Auto) (34.0-67.9) % Lymph % (Auto) (21.8-53.1) % [place] % (Auto) (5.3-12.2) % Eos % (Auto) (0.8-7.0) Baso % (Auto) (0.1-1.2) % Neut # (Auto) (1.78-5.38) K/mm3 Lymph # (Auto) (1.32-3.57) K/mm3 [place] # (Auto) (0.30-0.82) K/mm3 Eos # (Auto) (0.04-0.54) K/mm3 Baso # (Auto) (0.01-0.08) K/mm3 D-Dimer, Quantitative (0.19-0.50) mg/L Puncture Site Lt brachial ABG pH 7.28 L (7.35-7.45) ABG pCO2 18.2 L* (35.0-45.0) mmHg ABG pO2 91.0 (80.0-100.0) mmHg ABG HCO3 8.4 L (22.0-26.0) meq/L ABG O2 Saturation 98.0 H (96.0-97.0) % ABG Base Excess -16.6 L (-2-2.0) Adalberto Test Positive A-a Gradient 36 mmHg O2 Delivery Device Room air FiO2 21.00 (21.00-100.00) % Sodium (136-145) mEq/L Potassium (3.5-5.1) mEq/L Chloride (98-107) mEq/L Carbon Dioxide (21-32) mEq/L Anion Gap (5-15) BUN (7-18) mg/dL Creatinine (0.7-1.3) mg/dL Est Cr Clr Drug Dosing mL/min Estimated GFR (MDRD) (>60) mL/min BUN/Creatinine Ratio (14-18) Glucose (70-99) mg/dL POC Glucose 250 H 273 H (70-99) mg/dL Calcium (8.5-10.1) mg/dL Phosphorus (2.6-4.7) mg/dL Magnesium (1.8-2.4) mg/dL Total Bilirubin (0.2-1.0) mg/dL AST (15-37) U/L ALT (16-63) U/L Alkaline Phosphatase (46-116) U/L C-Reactive Protein (<1.0) mg/dL Total Protein (6.4-8.2) g/dl Albumin (3.4-5.0) g/dl Globulin gm/dL Albumin/Globulin Ratio (1-2) Urine Color (Yellow) Urine Appearance (Clear) Urine pH (5.0-8.0) Ur Specific [place] (1.005-1.030) Urine Protein (Negative) Urine Glucose (UA) (Negative) Urine Ketones (Negative) Urine Occult Blood (Negative) Urine Nitrite (Negative) Urine Bilirubin (Negative) Urine Urobilinogen (0.2-1.0) Ur Leukocyte Esterase (Negative) U Hyaline Cast (Auto) (0-5) /lpf Urine RBC (0-5) /hpf Urine WBC (0-5) /hpf Ur Epithelial Cells (0-5) /hpf Urine Bacteria (FEW) /hpf Urine Mucus (FEW) /hpf 10/30/21 10/30/21 10/30/21 Range/Units 21:06 21:26 22:05 WBC (4.23-9.07) K/mm3 RBC (4.63-6.08) M/mm3 Hgb (13.7-17.5) gm/dl Hct (40.1-51.0) % MCV (79.0-92.2) fl MCH (25.7-32.2) pg MCHC (32.2-35.5) g/dl RDW Std Deviation (35.1-43.9) fL Plt Count (163-337) K/mm3 MPV (9.4-12.3) fl Neut % (Auto) (34.0-67.9) % Lymph % (Auto) (21.8-53.1) % [place] % (Auto) (5.3-12.2) % Eos % (Auto) (0.8-7.0) Baso % (Auto) (0.1-1.2) % Neut # (Auto) (1.78-5.38) K/mm3 Lymph # (Auto) (1.32-3.57) K/mm3 [place] # (Auto) (0.30-0.82) K/mm3 Eos # (Auto) (0.04-0.54) K/mm3 Baso # (Auto) (0.01-0.08) K/mm3 D-Dimer, Quantitative (0.19-0.50) mg/L Puncture Site ABG pH (7.35-7.45) ABG pCO2 (35.0-45.0) mmHg ABG pO2 (80.0-100.0) mmHg ABG HCO3 (22.0-26.0) meq/L ABG O2 Saturation (96.0-97.0) % ABG Base Excess (-2-2.0) Adalberto Test A-a Gradient mmHg O2 Delivery Device FiO2 (21.00-100.00) % Sodium 145 (136-145) mEq/L Potassium 4.1 (3.5-5.1) mEq/L Chloride 109 H (98-107) mEq/L Carbon Dioxide 16 L (21-32) mEq/L Anion Gap 24.1 H (5-15) BUN 25 H (7-18) mg/dL Creatinine 1.4 H (0.7-1.3) mg/dL Est Cr Clr Drug Dosing 49.14 mL/min Estimated GFR (MDRD) 51 (>60) mL/min BUN/Creatinine Ratio 17.9 (14-18) Glucose 236 H (70-99) mg/dL POC Glucose 243 H 202 H (70-99) mg/dL Calcium 8.0 L (8.5-10.1) mg/dL Phosphorus (2.6-4.7) mg/dL Magnesium 2.0 (1.8-2.4) mg/dL Total Bilirubin (0.2-1.0) mg/dL AST (15-37) U/L ALT (16-63) U/L Alkaline Phosphatase (46-116) U/L C-Reactive Protein (<1.0) mg/dL Total Protein (6.4-8.2) g/dl Albumin (3.4-5.0) g/dl Globulin gm/dL Albumin/Globulin Ratio (1-2) Urine Color (Yellow) Urine Appearance (Clear) Urine pH (5.0-8.0) Ur Specific [place] (1.005-1.030) Urine Protein (Negative) Urine Glucose (UA) (Negative) Urine Ketones (Negative) Urine Occult Blood (Negative) Urine Nitrite (Negative) Urine Bilirubin (Negative) Urine Urobilinogen (0.2-1.0) Ur Leukocyte Esterase (Negative) U Hyaline Cast (Auto) (0-5) /lpf Urine RBC (0-5) /hpf Urine WBC (0-5) /hpf Ur Epithelial Cells (0-5) /hpf Urine Bacteria (FEW) /hpf Urine Mucus (FEW) /hpf 10/30/21 10/31/21 10/31/21 Range/Units 23:12 00:04 01:09 WBC (4.23-9.07) K/mm3 RBC (4.63-6.08) M/mm3 Hgb (13.7-17.5) gm/dl Hct (40.1-51.0) % MCV (79.0-92.2) fl MCH (25.7-32.2) pg MCHC (32.2-35.5) g/dl RDW Std Deviation (35.1-43.9) fL Plt Count (163-337) K/mm3 MPV (9.4-12.3) fl Neut % (Auto) (34.0-67.9) % Lymph % (Auto) (21.8-53.1) % [place] % (Auto) (5.3-12.2) % Eos % (Auto) (0.8-7.0) Baso % (Auto) (0.1-1.2) % Neut # (Auto) (1.78-5.38) K/mm3 Lymph # (Auto) (1.32-3.57) K/mm3 [place] # (Auto) (0.30-0.82) K/mm3 Eos # (Auto) (0.04-0.54) K/mm3 Baso # (Auto) (0.01-0.08) K/mm3 D-Dimer, Quantitative (0.19-0.50) mg/L Puncture Site ABG pH (7.35-7.45) ABG pCO2 (35.0-45.0) mmHg ABG pO2 (80.0-100.0) mmHg ABG HCO3 (22.0-26.0) meq/L ABG O2 Saturation (96.0-97.0) % ABG Base Excess (-2-2.0) Adalberto Test A-a Gradient mmHg O2 Delivery Device FiO2 (21.00-100.00) % Sodium (136-145) mEq/L Potassium (3.5-5.1) mEq/L Chloride (98-107) mEq/L Carbon Dioxide (21-32) mEq/L Anion Gap (5-15) BUN (7-18) mg/dL Creatinine (0.7-1.3) mg/dL Est Cr Clr Drug Dosing mL/min Estimated GFR (MDRD) (>60) mL/min BUN/Creatinine Ratio (14-18) Glucose (70-99) mg/dL POC Glucose 144 H 102 H 90 (70-99) mg/dL Calcium (8.5-10.1) mg/dL Phosphorus (2.6-4.7) mg/dL Magnesium (1.8-2.4) mg/dL Total Bilirubin (0.2-1.0) mg/dL AST (15-37) U/L ALT (16-63) U/L Alkaline Phosphatase (46-116) U/L C-Reactive Protein (<1.0) mg/dL Total Protein (6.4-8.2) g/dl Albumin (3.4-5.0) g/dl Globulin gm/dL Albumin/Globulin Ratio (1-2) Urine Color (Yellow) Urine Appearance (Clear) Urine pH (5.0-8.0) Ur Specific [place] (1.005-1.030) Urine Protein (Negative) Urine Glucose (UA) (Negative) Urine Ketones (Negative) Urine Occult Blood (Negative) Urine Nitrite (Negative) Urine Bilirubin (Negative) Urine Urobilinogen (0.2-1.0) Ur Leukocyte Esterase (Negative) U Hyaline Cast (Auto) (0-5) /lpf Urine RBC (0-5) /hpf Urine WBC (0-5) /hpf Ur Epithelial Cells (0-5) /hpf Urine Bacteria (FEW) /hpf Urine Mucus (FEW) /hpf 10/31/21 10/31/21 10/31/21 Range/Units 01:55 02:00 02:07 WBC (4.23-9.07) K/mm3 RBC (4.63-6.08) M/mm3 Hgb (13.7-17.5) gm/dl Hct (40.1-51.0) % MCV (79.0-92.2) fl MCH (25.7-32.2) pg MCHC (32.2-35.5) g/dl RDW Std Deviation (35.1-43.9) fL Plt Count (163-337) K/mm3 MPV (9.4-12.3) fl Neut % (Auto) (34.0-67.9) % Lymph % (Auto) (21.8-53.1) % [place] % (Auto) (5.3-12.2) % Eos % (Auto) (0.8-7.0) Baso % (Auto) (0.1-1.2) % Neut # (Auto) (1.78-5.38) K/mm3 Lymph # (Auto) (1.32-3.57) K/mm3 [place] # (Auto) (0.30-0.82) K/mm3 Eos # (Auto) (0.04-0.54) K/mm3 Baso # (Auto) (0.01-0.08) K/mm3 D-Dimer, Quantitative (0.19-0.50) mg/L Puncture Site ABG pH (7.35-7.45) ABG pCO2 (35.0-45.0) mmHg ABG pO2 (80.0-100.0) mmHg ABG HCO3 (22.0-26.0) meq/L ABG O2 Saturation (96.0-97.0) % ABG Base Excess (-2-2.0) Adalberto Test A-a Gradient mmHg O2 Delivery Device FiO2 (21.00-100.00) % Sodium 143 (136-145) mEq/L Potassium 3.6 (3.5-5.1) mEq/L Chloride 110 H (98-107) mEq/L Carbon Dioxide 18 L (21-32) mEq/L Anion Gap 18.6 H (5-15) BUN 19 H (7-18) mg/dL Creatinine 1.0 (0.7-1.3) mg/dL Est Cr Clr Drug Dosing 68.30 mL/min Estimated GFR (MDRD) > 60 (>60) mL/min BUN/Creatinine Ratio 19.0 H (14-18) Glucose 106 H (70-99) mg/dL POC Glucose 108 H (70-99) mg/dL Calcium 7.9 L (8.5-10.1) mg/dL Phosphorus (2.6-4.7) mg/dL Magnesium 2.3 (1.8-2.4) mg/dL Total Bilirubin (0.2-1.0) mg/dL AST (15-37) U/L ALT (16-63) U/L Alkaline Phosphatase (46-116) U/L C-Reactive Protein (<1.0) mg/dL Total Protein (6.4-8.2) g/dl Albumin (3.4-5.0) g/dl Globulin gm/dL Albumin/Globulin Ratio (1-2) Urine Color Light yellow (Yellow) Urine Appearance Clear (Clear) Urine pH 5.0 (5.0-8.0) Ur Specific [place] 1.025 (1.005-1.030) Urine Protein 1+ H (Negative) Urine Glucose (UA) 2+ H (Negative) Urine Ketones 3+ H (Negative) Urine Occult Blood Trace-lysed H (Negative) Urine Nitrite Negative (Negative) Urine Bilirubin 1+ H (Negative) Urine Urobilinogen 0.2 (0.2-1.0) Ur Leukocyte Esterase Negative (Negative) U Hyaline Cast (Auto) 0-5 (0-5) /lpf Urine RBC 0-5 (0-5) /hpf Urine WBC 0-5 (0-5) /hpf Ur Epithelial Cells 0-5 (0-5) /hpf Urine Bacteria Rare (FEW) /hpf Urine Mucus Not seen (FEW) /hpf 10/31/21 10/31/21 10/31/21 Range/Units 03:03 04:15 05:10 WBC 5.49 (4.23-9.07) K/mm3 RBC 3.97 L (4.63-6.08) M/mm3 Hgb 12.8 L D (13.7-17.5) gm/dl Hct 36.6 L (40.1-51.0) % MCV 92.2 (79.0-92.2) fl MCH 32.2 (25.7-32.2) pg MCHC 35.0 (32.2-35.5) g/dl RDW Std Deviation 45.0 H (35.1-43.9) fL Plt Count 246 (163-337) K/mm3 MPV 9.5 (9.4-12.3) fl Neut % (Auto) 74.7 H (34.0-67.9) % Lymph % (Auto) 10.7 L (21.8-53.1) % [place] % (Auto) 14.6 H (5.3-12.2) % Eos % (Auto) 0 L (0.8-7.0) Baso % (Auto) 0.0 L (0.1-1.2) % Neut # (Auto) 4.10 (1.78-5.38) K/mm3 Lymph # (Auto) 0.59 L (1.32-3.57) K/mm3 [place] # (Auto) 0.80 (0.30-0.82) K/mm3 Eos # (Auto) 0.00 L (0.04-0.54) K/mm3 Baso # (Auto) 0.00 L (0.01-0.08) K/mm3 D-Dimer, Quantitative (0.19-0.50) mg/L Puncture Site ABG pH (7.35-7.45) ABG pCO2 (35.0-45.0) mmHg ABG pO2 (80.0-100.0) mmHg ABG HCO3 (22.0-26.0) meq/L ABG O2 Saturation (96.0-97.0) % ABG Base Excess (-2-2.0) Adalberto Test A-a Gradient mmHg O2 Delivery Device FiO2 (21.00-100.00) % Sodium (136-145) mEq/L Potassium (3.5-5.1) mEq/L Chloride (98-107) mEq/L Carbon Dioxide (21-32) mEq/L Anion Gap (5-15) BUN (7-18) mg/dL Creatinine (0.7-1.3) mg/dL Est Cr Clr Drug Dosing mL/min Estimated GFR (MDRD) (>60) mL/min BUN/Creatinine Ratio (14-18) Glucose (70-99) mg/dL POC Glucose 119 H 155 H (70-99) mg/dL Calcium (8.5-10.1) mg/dL Phosphorus (2.6-4.7) mg/dL Magnesium (1.8-2.4) mg/dL Total Bilirubin (0.2-1.0) mg/dL AST (15-37) U/L ALT (16-63) U/L Alkaline Phosphatase (46-116) U/L C-Reactive Protein (<1.0) mg/dL Total Protein (6.4-8.2) g/dl Albumin (3.4-5.0) g/dl Globulin gm/dL Albumin/Globulin Ratio (1-2) Urine Color (Yellow) Urine Appearance (Clear) Urine pH (5.0-8.0) Ur Specific [place] (1.005-1.030) Urine Protein (Negative) Urine Glucose (UA) (Negative) Urine Ketones (Negative) Urine Occult Blood (Negative) Urine Nitrite (Negative) Urine Bilirubin (Negative) Urine Urobilinogen (0.2-1.0) Ur Leukocyte Esterase (Negative) U Hyaline Cast (Auto) (0-5) /lpf Urine RBC (0-5) /hpf Urine WBC (0-5) /hpf Ur Epithelial Cells (0-5) /hpf Urine Bacteria (FEW) /hpf Urine Mucus (FEW) /hpf 10/31/21 10/31/21 10/31/21 Range/Units 05:10 05:10 05:12 WBC (4.23-9.07) K/mm3 RBC (4.63-6.08) M/mm3 Hgb (13.7-17.5) gm/dl Hct (40.1-51.0) % MCV (79.0-92.2) fl MCH (25.7-32.2) pg MCHC (32.2-35.5) g/dl RDW Std Deviation (35.1-43.9) fL Plt Count (163-337) K/mm3 MPV (9.4-12.3) fl Neut % (Auto) (34.0-67.9) % Lymph % (Auto) (21.8-53.1) % [place] % (Auto) (5.3-12.2) % Eos % (Auto) (0.8-7.0) Baso % (Auto) (0.1-1.2) % Neut # (Auto) (1.78-5.38) K/mm3 Lymph # (Auto) (1.32-3.57) K/mm3 [place] # (Auto) (0.30-0.82) K/mm3 Eos # (Auto) (0.04-0.54) K/mm3 Baso # (Auto) (0.01-0.08) K/mm3 D-Dimer, Quantitative 0.82 H (0.19-0.50) mg/L Puncture Site ABG pH (7.35-7.45) ABG pCO2 (35.0-45.0) mmHg ABG pO2 (80.0-100.0) mmHg ABG HCO3 (22.0-26.0) meq/L ABG O2 Saturation (96.0-97.0) % ABG Base Excess (-2-2.0) Adalberto Test A-a Gradient mmHg O2 Delivery Device FiO2 (21.00-100.00) % Sodium 141 (136-145) mEq/L Potassium 3.8 (3.5-5.1) mEq/L Chloride 108 H (98-107) mEq/L Carbon Dioxide 18 L (21-32) mEq/L Anion Gap 18.8 H (5-15) BUN 14 (7-18) mg/dL Creatinine 0.9 (0.7-1.3) mg/dL Est Cr Clr Drug Dosing 75.89 mL/min Estimated GFR (MDRD) > 60 (>60) mL/min BUN/Creatinine Ratio 15.6 (14-18) Glucose 192 H (70-99) mg/dL POC Glucose 165 H (70-99) mg/dL Calcium 7.6 L (8.5-10.1) mg/dL Phosphorus 1.3 L (2.6-4.7) mg/dL Magnesium 2.2 (1.8-2.4) mg/dL Total Bilirubin 0.4 (0.2-1.0) mg/dL AST 15 (15-37) U/L ALT 16 (16-63) U/L Alkaline Phosphatase 66 (46-116) U/L C-Reactive Protein 1.7 H* (<1.0) mg/dL Total Protein 6.0 L (6.4-8.2) g/dl Albumin 2.7 L (3.4-5.0) g/dl Globulin 3.3 gm/dL Albumin/Globulin Ratio 0.8 L (1-2) Urine Color (Yellow) Urine Appearance (Clear) Urine pH (5.0-8.0) Ur Specific [place] (1.005-1.030) Urine Protein (Negative) Urine Glucose (UA) (Negative) Urine Ketones (Negative) Urine Occult Blood (Negative) Urine Nitrite (Negative) Urine Bilirubin (Negative) Urine Urobilinogen (0.2-1.0) Ur Leukocyte Esterase (Negative) U Hyaline Cast (Auto) (0-5) /lpf Urine RBC (0-5) /hpf Urine WBC (0-5) /hpf Ur Epithelial Cells (0-5) /hpf Urine Bacteria (FEW) /hpf Urine Mucus (FEW) /hpf 10/31/21 10/31/21 10/31/21 Range/Units 06:03 07:05 08:21 WBC (4.23-9.07) K/mm3 RBC (4.63-6.08) M/mm3 Hgb (13.7-17.5) gm/dl Hct (40.1-51.0) % MCV (79.0-92.2) fl MCH (25.7-32.2) pg MCHC (32.2-35.5) g/dl RDW Std Deviation (35.1-43.9) fL Plt Count (163-337) K/mm3 MPV (9.4-12.3) fl Neut % (Auto) (34.0-67.9) % Lymph % (Auto) (21.8-53.1) % [place] % (Auto) (5.3-12.2) % Eos % (Auto) (0.8-7.0) Baso % (Auto) (0.1-1.2) % Neut # (Auto) (1.78-5.38) K/mm3 Lymph # (Auto) (1.32-3.57) K/mm3 [place] # (Auto) (0.30-0.82) K/mm3 Eos # (Auto) (0.04-0.54) K/mm3 Baso # (Auto) (0.01-0.08) K/mm3 D-Dimer, Quantitative (0.19-0.50) mg/L Puncture Site ABG pH (7.35-7.45) ABG pCO2 (35.0-45.0) mmHg ABG pO2 (80.0-100.0) mmHg ABG HCO3 (22.0-26.0) meq/L ABG O2 Saturation (96.0-97.0) % ABG Base Excess (-2-2.0) Adalberto Test A-a Gradient mmHg O2 Delivery Device FiO2 (21.00-100.00) % Sodium (136-145) mEq/L Potassium (3.5-5.1) mEq/L Chloride (98-107) mEq/L Carbon Dioxide (21-32) mEq/L Anion Gap (5-15) BUN (7-18) mg/dL Creatinine (0.7-1.3) mg/dL Est Cr Clr Drug Dosing mL/min Estimated GFR (MDRD) (>60) mL/min BUN/Creatinine Ratio (14-18) Glucose (70-99) mg/dL POC Glucose 198 H 209 H 160 H (70-99) mg/dL Calcium (8.5-10.1) mg/dL Phosphorus (2.6-4.7) mg/dL Magnesium (1.8-2.4) mg/dL Total Bilirubin (0.2-1.0) mg/dL AST (15-37) U/L ALT (16-63) U/L Alkaline Phosphatase (46-116) U/L C-Reactive Protein (<1.0) mg/dL Total Protein (6.4-8.2) g/dl Albumin (3.4-5.0) g/dl Globulin gm/dL Albumin/Globulin Ratio (1-2) Urine Color (Yellow) Urine Appearance (Clear) Urine pH (5.0-8.0) Ur Specific [place] (1.005-1.030) Urine Protein (Negative) Urine Glucose (UA) (Negative) Urine Ketones (Negative) Urine Occult Blood (Negative) Urine Nitrite (Negative) Urine Bilirubin (Negative) Urine Urobilinogen (0.2-1.0) Ur Leukocyte Esterase (Negative) U Hyaline Cast (Auto) (0-5) /lpf Urine RBC (0-5) /hpf Urine WBC (0-5) /hpf Ur Epithelial Cells (0-5) /hpf Urine Bacteria (FEW) /hpf Urine Mucus (FEW) /hpf 10/31/21 10/31/21 10/31/21 Range/Units 09:01 10:05 11:14 WBC (4.23-9.07) K/mm3 RBC (4.63-6.08) M/mm3 Hgb (13.7-17.5) gm/dl Hct (40.1-51.0) % MCV (79.0-92.2) fl MCH (25.7-32.2) pg MCHC (32.2-35.5) g/dl RDW Std Deviation (35.1-43.9) fL Plt Count (163-337) K/mm3 MPV (9.4-12.3) fl Neut % (Auto) (34.0-67.9) % Lymph % (Auto) (21.8-53.1) % [place] % (Auto) (5.3-12.2) % Eos % (Auto) (0.8-7.0) Baso % (Auto) (0.1-1.2) % Neut # (Auto) (1.78-5.38) K/mm3 Lymph # (Auto) (1.32-3.57) K/mm3 [place] # (Auto) (0.30-0.82) K/mm3 Eos # (Auto) (0.04-0.54) K/mm3 Baso # (Auto) (0.01-0.08) K/mm3 D-Dimer, Quantitative (0.19-0.50) mg/L Puncture Site ABG pH (7.35-7.45) ABG pCO2 (35.0-45.0) mmHg ABG pO2 (80.0-100.0) mmHg ABG HCO3 (22.0-26.0) meq/L ABG O2 Saturation (96.0-97.0) % ABG Base Excess (-2-2.0) Adalberto Test A-a Gradient mmHg O2 Delivery Device FiO2 (21.00-100.00) % Sodium (136-145) mEq/L Potassium (3.5-5.1) mEq/L Chloride (98-107) mEq/L Carbon Dioxide (21-32) mEq/L Anion Gap (5-15) BUN (7-18) mg/dL Creatinine (0.7-1.3) mg/dL Est Cr Clr Drug Dosing mL/min Estimated GFR (MDRD) (>60) mL/min BUN/Creatinine Ratio (14-18) Glucose (70-99) mg/dL POC Glucose 190 H 192 H 203 H (70-99) mg/dL Calcium (8.5-10.1) mg/dL Phosphorus (2.6-4.7) mg/dL Magnesium (1.8-2.4) mg/dL Total Bilirubin (0.2-1.0) mg/dL AST (15-37) U/L ALT (16-63) U/L Alkaline Phosphatase (46-116) U/L C-Reactive Protein (<1.0) mg/dL Total Protein (6.4-8.2) g/dl Albumin (3.4-5.0) g/dl Globulin gm/dL Albumin/Globulin Ratio (1-2) Urine Color (Yellow) Urine Appearance (Clear) Urine pH (5.0-8.0) Ur Specific [place] (1.005-1.030) Urine Protein (Negative) Urine Glucose (UA) (Negative) Urine Ketones (Negative) Urine Occult Blood (Negative) Urine Nitrite (Negative) Urine Bilirubin (Negative) Urine Urobilinogen (0.2-1.0) Ur Leukocyte Esterase (Negative) U Hyaline Cast (Auto) (0-5) /lpf Urine RBC (0-5) /hpf Urine WBC (0-5) /hpf Ur Epithelial Cells (0-5) /hpf Urine Bacteria (FEW) /hpf Urine Mucus (FEW) /hpf 10/31/21 10/31/21 10/31/21 Range/Units 11:15 12:27 13:29 WBC (4.23-9.07) K/mm3 RBC (4.63-6.08) M/mm3 Hgb (13.7-17.5) gm/dl Hct (40.1-51.0) % MCV (79.0-92.2) fl MCH (25.7-32.2) pg MCHC (32.2-35.5) g/dl RDW Std Deviation (35.1-43.9) fL Plt Count (163-337) K/mm3 MPV (9.4-12.3) fl Neut % (Auto) (34.0-67.9) % Lymph % (Auto) (21.8-53.1) % [place] % (Auto) (5.3-12.2) % Eos % (Auto) (0.8-7.0) Baso % (Auto) (0.1-1.2) % Neut # (Auto) (1.78-5.38) K/mm3 Lymph # (Auto) (1.32-3.57) K/mm3 [place] # (Auto) (0.30-0.82) K/mm3 Eos # (Auto) (0.04-0.54) K/mm3 Baso # (Auto) (0.01-0.08) K/mm3 D-Dimer, Quantitative (0.19-0.50) mg/L Puncture Site ABG pH (7.35-7.45) ABG pCO2 (35.0-45.0) mmHg ABG pO2 (80.0-100.0) mmHg ABG HCO3 (22.0-26.0) meq/L ABG O2 Saturation (96.0-97.0) % ABG Base Excess (-2-2.0) Adalberto Test A-a Gradient mmHg O2 Delivery Device FiO2 (21.00-100.00) % Sodium 140 (136-145) mEq/L Potassium 3.6 (3.5-5.1) mEq/L Chloride 106 (98-107) mEq/L Carbon Dioxide 22 (21-32) mEq/L Anion Gap 15.6 H (5-15) BUN 9 (7-18) mg/dL Creatinine 0.9 (0.7-1.3) mg/dL Est Cr Clr Drug Dosing 75.89 mL/min Estimated GFR (MDRD) > 60 (>60) mL/min BUN/Creatinine Ratio 10.0 L (14-18) Glucose 210 H (70-99) mg/dL POC Glucose 191 H 178 H (70-99) mg/dL Calcium 7.5 L (8.5-10.1) mg/dL Phosphorus 1.1 L (2.6-4.7) mg/dL Magnesium 1.9 (1.8-2.4) mg/dL Total Bilirubin (0.2-1.0) mg/dL AST (15-37) U/L ALT (16-63) U/L Alkaline Phosphatase (46-116) U/L C-Reactive Protein (<1.0) mg/dL Total Protein (6.4-8.2) g/dl Albumin (3.4-5.0) g/dl Globulin gm/dL Albumin/Globulin Ratio (1-2) Urine Color (Yellow) Urine Appearance (Clear) Urine pH (5.0-8.0) Ur Specific [place] (1.005-1.030) Urine Protein (Negative) Urine Glucose (UA) (Negative) Urine Ketones (Negative) Urine Occult Blood (Negative) Urine Nitrite (Negative) Urine Bilirubin (Negative) Urine Urobilinogen (0.2-1.0) Ur Leukocyte Esterase (Negative) U Hyaline Cast (Auto) (0-5) /lpf Urine RBC (0-5) /hpf Urine WBC (0-5) /hpf Ur Epithelial Cells (0-5) /hpf Urine Bacteria (FEW) /hpf Urine Mucus (FEW) /hpf Med Orders - Current: Current Medications Acetaminophen (Acetaminophen 325 Mg Tab) 650 mg PO Q4H PRN PRN Reason: Pain (Mild 1-3)/fever Enoxaparin Sodium (Enoxaparin 40 Mg/0.4 Ml Syringe) 40 mg SUBCUT DAILY JUAN CARLOS Last Admin: 10/31/21 08:52 Dose: 40 mg Documented by: Insulin Human Regular 100 unit (/ Sodium Chloride) 100 mls @ 1.27 mls/hr IV TITRATE JUAN CARLOS; Protocol Last Titration: 10/31/21 11:24 Dose: 0.05 units/kg/hr, 3 mls/hr Documented by: Insulin Human Regular 100 unit (/ Sodium Chloride) 100 mls @ 1.905 mls/hr IV TITRATE JUAN CARLOS; Protocol Potassium Chloride/Dextrose/Sod Cl (D5 1/2 Ns W/ 20 Meq/L Kcl) 1,000 mls @ 200 mls/hr IV ASDIRECTED JUAN CARLOS Last Admin: 10/31/21 09:47 Dose: 200 mls/hr Documented by: Ondansetron HCl (Ondansetron 4 Mg/2 Ml Sdv) 4 mg IV Q6H PRN PRN Reason: Nausea/Vomiting Sodium Chloride (Sodium Chloride 0.9% 10 Ml Syringe) 10 ml FLUSH ASDIRECTED PRN PRN Reason: Keep Vein Open Last Admin: 10/30/21 10:58 Dose: 10 ml Documented by: Sodium Chloride (Sodium Chloride 0.9% 10 Ml Syringe) 30 ml FLUSH ASDIRECTED JUAN CARLOS Discontinued Medications Diphenhydramine HCl (Diphenhydramine 50 Mg/Ml Sdv) 50 mg IVPUSH ASDIRECTED PRN PRN Reason: hypersensitivity reaction Epinephrine HCl (Epinephrine 1 Mg/Ml Sdv) 0.3 mg IM ASDIRECTED PRN PRN Reason: hypersensitivity reaction Famotidine (Famotidine 20 Mg/2 Ml Sdv) 20 mg IVPUSH ASDIRECTED PRN PRN Reason: hypersensitivity reaction Sodium Chloride (Normal Saline) 1,000 mls @ 999 mls/hr IV Q1H [facility] Stop: 10/30/21 11:29 Last Admin: 10/30/21 10:56 Dose: 999 mls/hr Documented by: Insulin Human Regular 100 unit (/ Sodium Chloride) 100 mls @ 1.27 mls/hr IV TITRATE [facility]; Protocol Last Admin: 10/30/21 11:32 Dose: 0.1 units/kg/hr, 6.35 mls/hr Documented by: Sodium Chloride (Normal Saline) 1,000 mls @ 999 mls/hr IV ONETIME ONE Stop: 10/30/21 13:27 Last Admin: 10/30/21 12:34 Dose: 999 mls/hr Documented by: Sodium Chloride (Normal Saline) 1,000 mls @ 999 mls/hr IV ONETIME ONE Stop: 10/30/21 15:06 Last Admin: 10/30/21 14:15 Dose: 999 mls/hr Documented by: Potassium Chloride/Dextrose/Sod Cl (D5 Ns With 20 Meq Kcl) 1,000 mls @ 200 mls/hr IV ASDIRECTED [facility] Last Admin: 10/30/21 21:19 Dose: 200 mls/hr Documented by: Bamlanivimab 700 mg/Etesevimab 1,400 mg/ Sodium Chloride 310 mls @ 310 mls/hr IV ONETIME ONE Stop: 10/30/21 17:44 Last Admin: 10/30/21 16:54 Dose: 310 mls/hr Documented by: Magnesium Sulfate 4 gm/ Premix 50 mls @ 12.5 mls/hr IV ONETIME ONE Stop: 10/30/21 23:05 Last Admin: 10/30/21 20:40 Dose: 12.5 mls/hr Documented by: Insulin Human Regular (Insulin Regular, Human 100 Units/Ml 3 Ml Vial) 6 unit IV ONETIME ONE Stop: 10/30/21 11:05 Last Admin: 10/30/21 11:23 Dose: 6 unit Documented by: Methylprednisolone Sodium Succinate (Methylprednisolone Sodium Succinate 125 Mg/2 Ml Sdv) 125 mg IVPUSH ASDIRECTED PRN PRN Reason: hypersensitivity reaction Ondansetron HCl (Ondansetron 4 Mg/2 Ml Sdv) 4 mg IVPUSH ONETIME ONE Stop: 10/30/21 10:17 Last Admin: 10/30/21 10:57 Dose: 4 mg Documented by: - Exam Quality Assessment: No: Supplemental Oxygen General: Alert, Oriented HEENT: Pupils Equal, Mucous Membr. Moist/[place] Neck: Supple Lungs: Clear to Auscultation, Normal Respiratory Effort Cardiovascular: Regular Rate, Regular Rhythm GI/Abdominal Exam: Normal Bowel Sounds, Soft, Non-Tender, No Organomegaly, No Distention, No Abnormal Bruit, No Mass Extremities: Normal Inspection, Normal Range of Motion, Non-Tender, No Pedal Edema, Normal Capillary Refill Skin: Warm, Dry, Intact Neurological: No New Focal Deficit Psy/Mental Status: Alert, Normal Affect, Normal Mood - Patient Data Lab Results Last 24 hrs: Laboratory Results - last 24 hr 10/30/21 10/30/21 10/30/21 Range/Units 13:32 14:06 14:45 WBC (4.23-9.07) K/mm3 RBC (4.63-6.08) M/mm3 Hgb (13.7-17.5) gm/dl Hct (40.1-51.0) % MCV (79.0-92.2) fl MCH (25.7-32.2) pg MCHC (32.2-35.5) g/dl RDW Std Deviation (35.1-43.9) fL Plt Count (163-337) K/mm3 MPV (9.4-12.3) fl Neut % (Auto) (34.0-67.9) % Lymph % (Auto) (21.8-53.1) % [place] % (Auto) (5.3-12.2) % Eos % (Auto) (0.8-7.0) Baso % (Auto) (0.1-1.2) % Neut # (Auto) (1.78-5.38) K/mm3 Lymph # (Auto) (1.32-3.57) K/mm3 [place] # (Auto) (0.30-0.82) K/mm3 Eos # (Auto) (0.04-0.54) K/mm3 Baso # (Auto) (0.01-0.08) K/mm3 D-Dimer, Quantitative (0.19-0.50) mg/L Puncture Site ABG pH 7.18 L* (7.35-7.45) ABG pCO2 15.8 L* (35.0-45.0) mmHg ABG pO2 144.0 H (80.0-100.0) mmHg ABG HCO3 5.7 L (22.0-26.0) meq/L ABG O2 Saturation 98.4 H (96.0-97.0) % ABG Base Excess -21.7 L (-2-2.0) Adalberto Test Positive A-a Gradient mmHg O2 Delivery Device FiO2 (21.00-100.00) % Sodium (136-145) mEq/L Potassium (3.5-5.1) mEq/L Chloride (98-107) mEq/L Carbon Dioxide (21-32) mEq/L Anion Gap (5-15) BUN (7-18) mg/dL Creatinine (0.7-1.3) mg/dL Est Cr Clr Drug Dosing mL/min Estimated GFR (MDRD) (>60) mL/min BUN/Creatinine Ratio (14-18) Glucose (70-99) mg/dL POC Glucose 215 H 182 H (70-99) mg/dL Calcium (8.5-10.1) mg/dL Phosphorus (2.6-4.7) mg/dL Magnesium (1.8-2.4) mg/dL Total Bilirubin (0.2-1.0) mg/dL AST (15-37) U/L ALT (16-63) U/L Alkaline Phosphatase (46-116) U/L C-Reactive Protein (<1.0) mg/dL Total Protein (6.4-8.2) g/dl Albumin (3.4-5.0) g/dl Globulin gm/dL Albumin/Globulin Ratio (1-2) Urine Color (Yellow) Urine Appearance (Clear) Urine pH (5.0-8.0) Ur Specific [place] (1.005-1.030) Urine Protein (Negative) Urine Glucose (UA) (Negative) Urine Ketones (Negative) Urine Occult Blood (Negative) Urine Nitrite (Negative) Urine Bilirubin (Negative) Urine Urobilinogen (0.2-1.0) Ur Leukocyte Esterase (Negative) U Hyaline Cast (Auto) (0-5) /lpf Urine RBC (0-5) /hpf Urine WBC (0-5) /hpf Ur Epithelial Cells (0-5) /hpf Urine Bacteria (FEW) /hpf Urine Mucus (FEW) /hpf 10/30/21 10/30/21 10/30/21 Range/Units 15:56 16:31 17:46 WBC (4.23-9.07) K/mm3 RBC (4.63-6.08) M/mm3 Hgb (13.7-17.5) gm/dl Hct (40.1-51.0) % MCV (79.0-92.2) fl MCH (25.7-32.2) pg MCHC (32.2-35.5) g/dl RDW Std Deviation (35.1-43.9) fL Plt Count (163-337) K/mm3 MPV (9.4-12.3) fl Neut % (Auto) (34.0-67.9) % Lymph % (Auto) (21.8-53.1) % [place] % (Auto) (5.3-12.2) % Eos % (Auto) (0.8-7.0) Baso % (Auto) (0.1-1.2) % Neut # (Auto) (1.78-5.38) K/mm3 Lymph # (Auto) (1.32-3.57) K/mm3 [place] # (Auto) (0.30-0.82) K/mm3 Eos # (Auto) (0.04-0.54) K/mm3 Baso # (Auto) (0.01-0.08) K/mm3 D-Dimer, Quantitative (0.19-0.50) mg/L Puncture Site ABG pH (7.35-7.45) ABG pCO2 (35.0-45.0) mmHg ABG pO2 (80.0-100.0) mmHg ABG HCO3 (22.0-26.0) meq/L ABG O2 Saturation (96.0-97.0) % ABG Base Excess (-2-2.0) Adalberto Test A-a Gradient mmHg O2 Delivery Device FiO2 (21.00-100.00) % Sodium 139 (136-145) mEq/L Potassium 4.4 (3.5-5.1) mEq/L Chloride 103 (98-107) mEq/L Carbon Dioxide 9 L (21-32) mEq/L Anion Gap 31.4 H (5-15) BUN 33 H (7-18) mg/dL Creatinine 1.4 H (0.7-1.3) mg/dL Est Cr Clr Drug Dosing 49.14 mL/min Estimated GFR (MDRD) 51 (>60) mL/min BUN/Creatinine Ratio 23.6 H (14-18) Glucose 250 H (70-99) mg/dL POC Glucose 210 H 243 H (70-99) mg/dL Calcium 7.8 L (8.5-10.1) mg/dL Phosphorus (2.6-4.7) mg/dL Magnesium 1.6 L (1.8-2.4) mg/dL Total Bilirubin (0.2-1.0) mg/dL AST (15-37) U/L ALT (16-63) U/L Alkaline Phosphatase (46-116) U/L C-Reactive Protein (<1.0) mg/dL Total Protein (6.4-8.2) g/dl Albumin (3.4-5.0) g/dl Globulin gm/dL Albumin/Globulin Ratio (1-2) Urine Color (Yellow) Urine Appearance (Clear) Urine pH (5.0-8.0) Ur Specific [place] (1.005-1.030) Urine Protein (Negative) Urine Glucose (UA) (Negative) Urine Ketones (Negative) Urine Occult Blood (Negative) Urine Nitrite (Negative) Urine Bilirubin (Negative) Urine Urobilinogen (0.2-1.0) Ur Leukocyte Esterase (Negative) U Hyaline Cast (Auto) (0-5) /lpf Urine RBC (0-5) /hpf Urine WBC (0-5) /hpf Ur Epithelial Cells (0-5) /hpf Urine Bacteria (FEW) /hpf Urine Mucus (FEW) /hpf 10/30/21 10/30/21 10/30/21 Range/Units 18:57 19:35 20:23 WBC (4.23-9.07) K/mm3 RBC (4.63-6.08) M/mm3 Hgb (13.7-17.5) gm/dl Hct (40.1-51.0) % MCV (79.0-92.2) fl MCH (25.7-32.2) pg MCHC (32.2-35.5) g/dl RDW Std Deviation (35.1-43.9) fL Plt Count (163-337) K/mm3 MPV (9.4-12.3) fl Neut % (Auto) (34.0-67.9) % Lymph % (Auto) (21.8-53.1) % [place] % (Auto) (5.3-12.2) % Eos % (Auto) (0.8-7.0) Baso % (Auto) (0.1-1.2) % Neut # (Auto) (1.78-5.38) K/mm3 Lymph # (Auto) (1.32-3.57) K/mm3 [place] # (Auto) (0.30-0.82) K/mm3 Eos # (Auto) (0.04-0.54) K/mm3 Baso # (Auto) (0.01-0.08) K/mm3 D-Dimer, Quantitative (0.19-0.50) mg/L Puncture Site Lt brachial ABG pH 7.28 L (7.35-7.45) ABG pCO2 18.2 L* (35.0-45.0) mmHg ABG pO2 91.0 (80.0-100.0) mmHg ABG HCO3 8.4 L (22.0-26.0) meq/L ABG O2 Saturation 98.0 H (96.0-97.0) % ABG Base Excess -16.6 L (-2-2.0) Adalberto Test Positive A-a Gradient 36 mmHg O2 Delivery Device Room air FiO2 21.00 (21.00-100.00) % Sodium (136-145) mEq/L Potassium (3.5-5.1) mEq/L Chloride (98-107) mEq/L Carbon Dioxide (21-32) mEq/L Anion Gap (5-15) BUN (7-18) mg/dL Creatinine (0.7-1.3) mg/dL Est Cr Clr Drug Dosing mL/min Estimated GFR (MDRD) (>60) mL/min BUN/Creatinine Ratio (14-18) Glucose (70-99) mg/dL POC Glucose 250 H 273 H (70-99) mg/dL Calcium (8.5-10.1) mg/dL Phosphorus (2.6-4.7) mg/dL Magnesium (1.8-2.4) mg/dL Total Bilirubin (0.2-1.0) mg/dL AST (15-37) U/L ALT (16-63) U/L Alkaline Phosphatase (46-116) U/L C-Reactive Protein (<1.0) mg/dL Total Protein (6.4-8.2) g/dl Albumin (3.4-5.0) g/dl Globulin gm/dL Albumin/Globulin Ratio (1-2) Urine Color (Yellow) Urine Appearance (Clear) Urine pH (5.0-8.0) Ur Specific [place] (1.005-1.030) Urine Protein (Negative) Urine Glucose (UA) (Negative) Urine Ketones (Negative) Urine Occult Blood (Negative) Urine Nitrite (Negative) Urine Bilirubin (Negative) Urine Urobilinogen (0.2-1.0) Ur Leukocyte Esterase (Negative) U Hyaline Cast (Auto) (0-5) /lpf Urine RBC (0-5) /hpf Urine WBC (0-5) /hpf Ur Epithelial Cells (0-5) /hpf Urine Bacteria (FEW) /hpf Urine Mucus (FEW) /hpf 10/30/21 10/30/21 10/30/21 Range/Units 21:06 21:26 22:05 WBC (4.23-9.07) K/mm3 RBC (4.63-6.08) M/mm3 Hgb (13.7-17.5) gm/dl Hct (40.1-51.0) % MCV (79.0-92.2) fl MCH (25.7-32.2) pg MCHC (32.2-35.5) g/dl RDW Std Deviation (35.1-43.9) fL Plt Count (163-337) K/mm3 MPV (9.4-12.3) fl Neut % (Auto) (34.0-67.9) % Lymph % (Auto) (21.8-53.1) % [place] % (Auto) (5.3-12.2) % Eos % (Auto) (0.8-7.0) Baso % (Auto) (0.1-1.2) % Neut # (Auto) (1.78-5.38) K/mm3 Lymph # (Auto) (1.32-3.57) K/mm3 [place] # (Auto) (0.30-0.82) K/mm3 Eos # (Auto) (0.04-0.54) K/mm3 Baso # (Auto) (0.01-0.08) K/mm3 D-Dimer, Quantitative (0.19-0.50) mg/L Puncture Site ABG pH (7.35-7.45) ABG pCO2 (35.0-45.0) mmHg ABG pO2 (80.0-100.0) mmHg ABG HCO3 (22.0-26.0) meq/L ABG O2 Saturation (96.0-97.0) % ABG Base Excess (-2-2.0) Adalberto Test A-a Gradient mmHg O2 Delivery Device FiO2 (21.00-100.00) % Sodium 145 (136-145) mEq/L Potassium 4.1 (3.5-5.1) mEq/L Chloride 109 H (98-107) mEq/L Carbon Dioxide 16 L (21-32) mEq/L Anion Gap 24.1 H (5-15) BUN 25 H (7-18) mg/dL Creatinine 1.4 H (0.7-1.3) mg/dL Est Cr Clr Drug Dosing 49.14 mL/min Estimated GFR (MDRD) 51 (>60) mL/min BUN/Creatinine Ratio 17.9 (14-18) Glucose 236 H (70-99) mg/dL POC Glucose 243 H 202 H (70-99) mg/dL Calcium 8.0 L (8.5-10.1) mg/dL Phosphorus (2.6-4.7) mg/dL Magnesium 2.0 (1.8-2.4) mg/dL Total Bilirubin (0.2-1.0) mg/dL AST (15-37) U/L ALT (16-63) U/L Alkaline Phosphatase (46-116) U/L C-Reactive Protein (<1.0) mg/dL Total Protein (6.4-8.2) g/dl Albumin (3.4-5.0) g/dl Globulin gm/dL Albumin/Globulin Ratio (1-2) Urine Color (Yellow) Urine Appearance (Clear) Urine pH (5.0-8.0) Ur Specific [place] (1.005-1.030) Urine Protein (Negative) Urine Glucose (UA) (Negative) Urine Ketones (Negative) Urine Occult Blood (Negative) Urine Nitrite (Negative) Urine Bilirubin (Negative) Urine Urobilinogen (0.2-1.0) Ur Leukocyte Esterase (Negative) U Hyaline Cast (Auto) (0-5) /lpf Urine RBC (0-5) /hpf Urine WBC (0-5) /hpf Ur Epithelial Cells (0-5) /hpf Urine Bacteria (FEW) /hpf Urine Mucus (FEW) /hpf 10/30/21 10/31/21 10/31/21 Range/Units 23:12 00:04 01:09 WBC (4.23-9.07) K/mm3 RBC (4.63-6.08) M/mm3 Hgb (13.7-17.5) gm/dl Hct (40.1-51.0) % MCV (79.0-92.2) fl MCH (25.7-32.2) pg MCHC (32.2-35.5) g/dl RDW Std Deviation (35.1-43.9) fL Plt Count (163-337) K/mm3 MPV (9.4-12.3) fl Neut % (Auto) (34.0-67.9) % Lymph % (Auto) (21.8-53.1) % [place] % (Auto) (5.3-12.2) % Eos % (Auto) (0.8-7.0) Baso % (Auto) (0.1-1.2) % Neut # (Auto) (1.78-5.38) K/mm3 Lymph # (Auto) (1.32-3.57) K/mm3 [place] # (Auto) (0.30-0.82) K/mm3 Eos # (Auto) (0.04-0.54) K/mm3 Baso # (Auto) (0.01-0.08) K/mm3 D-Dimer, Quantitative (0.19-0.50) mg/L Puncture Site ABG pH (7.35-7.45) ABG pCO2 (35.0-45.0) mmHg ABG pO2 (80.0-100.0) mmHg ABG HCO3 (22.0-26.0) meq/L ABG O2 Saturation (96.0-97.0) % ABG Base Excess (-2-2.0) Adalberto Test A-a Gradient mmHg O2 Delivery Device FiO2 (21.00-100.00) % Sodium (136-145) mEq/L Potassium (3.5-5.1) mEq/L Chloride (98-107) mEq/L Carbon Dioxide (21-32) mEq/L Anion Gap (5-15) BUN (7-18) mg/dL Creatinine (0.7-1.3) mg/dL Est Cr Clr Drug Dosing mL/min Estimated GFR (MDRD) (>60) mL/min BUN/Creatinine Ratio (14-18) Glucose (70-99) mg/dL POC Glucose 144 H 102 H 90 (70-99) mg/dL Calcium (8.5-10.1) mg/dL Phosphorus (2.6-4.7) mg/dL Magnesium (1.8-2.4) mg/dL Total Bilirubin (0.2-1.0) mg/dL AST (15-37) U/L ALT (16-63) U/L Alkaline Phosphatase (46-116) U/L C-Reactive Protein (<1.0) mg/dL Total Protein (6.4-8.2) g/dl Albumin (3.4-5.0) g/dl Globulin gm/dL Albumin/Globulin Ratio (1-2) Urine Color (Yellow) Urine Appearance (Clear) Urine pH (5.0-8.0) Ur Specific [place] (1.005-1.030) Urine Protein (Negative) Urine Glucose (UA) (Negative) Urine Ketones (Negative) Urine Occult Blood (Negative) Urine Nitrite (Negative) Urine Bilirubin (Negative) Urine Urobilinogen (0.2-1.0) Ur Leukocyte Esterase (Negative) U Hyaline Cast (Auto) (0-5) /lpf Urine RBC (0-5) /hpf Urine WBC (0-5) /hpf Ur Epithelial Cells (0-5) /hpf Urine Bacteria (FEW) /hpf Urine Mucus (FEW) /hpf 10/31/21 10/31/21 10/31/21 Range/Units 01:55 02:00 02:07 WBC (4.23-9.07) K/mm3 RBC (4.63-6.08) M/mm3 Hgb (13.7-17.5) gm/dl Hct (40.1-51.0) % MCV (79.0-92.2) fl MCH (25.7-32.2) pg MCHC (32.2-35.5) g/dl RDW Std Deviation (35.1-43.9) fL Plt Count (163-337) K/mm3 MPV (9.4-12.3) fl Neut % (Auto) (34.0-67.9) % Lymph % (Auto) (21.8-53.1) % [place] % (Auto) (5.3-12.2) % Eos % (Auto) (0.8-7.0) Baso % (Auto) (0.1-1.2) % Neut # (Auto) (1.78-5.38) K/mm3 Lymph # (Auto) (1.32-3.57) K/mm3 [place] # (Auto) (0.30-0.82) K/mm3 Eos # (Auto) (0.04-0.54) K/mm3 Baso # (Auto) (0.01-0.08) K/mm3 D-Dimer, Quantitative (0.19-0.50) mg/L Puncture Site ABG pH (7.35-7.45) ABG pCO2 (35.0-45.0) mmHg ABG pO2 (80.0-100.0) mmHg ABG HCO3 (22.0-26.0) meq/L ABG O2 Saturation (96.0-97.0) % ABG Base Excess (-2-2.0) Adalberto Test A-a Gradient mmHg O2 Delivery Device FiO2 (21.00-100.00) % Sodium 143 (136-145) mEq/L Potassium 3.6 (3.5-5.1) mEq/L Chloride 110 H (98-107) mEq/L Carbon Dioxide 18 L (21-32) mEq/L Anion Gap 18.6 H (5-15) BUN 19 H (7-18) mg/dL Creatinine 1.0 (0.7-1.3) mg/dL Est Cr Clr Drug Dosing 68.30 mL/min Estimated GFR (MDRD) > 60 (>60) mL/min BUN/Creatinine Ratio 19.0 H (14-18) Glucose 106 H (70-99) mg/dL POC Glucose 108 H (70-99) mg/dL Calcium 7.9 L (8.5-10.1) mg/dL Phosphorus (2.6-4.7) mg/dL Magnesium 2.3 (1.8-2.4) mg/dL Total Bilirubin (0.2-1.0) mg/dL AST (15-37) U/L ALT (16-63) U/L Alkaline Phosphatase (46-116) U/L C-Reactive Protein (<1.0) mg/dL Total Protein (6.4-8.2) g/dl Albumin (3.4-5.0) g/dl Globulin gm/dL Albumin/Globulin Ratio (1-2) Urine Color Light yellow (Yellow) Urine Appearance Clear (Clear) Urine pH 5.0 (5.0-8.0) Ur Specific [place] 1.025 (1.005-1.030) Urine Protein 1+ H (Negative) Urine Glucose (UA) 2+ H (Negative) Urine Ketones 3+ H (Negative) Urine Occult Blood Trace-lysed H (Negative) Urine Nitrite Negative (Negative) Urine Bilirubin 1+ H (Negative) Urine Urobilinogen 0.2 (0.2-1.0) Ur Leukocyte Esterase Negative (Negative) U Hyaline Cast (Auto) 0-5 (0-5) /lpf Urine RBC 0-5 (0-5) /hpf Urine WBC 0-5 (0-5) /hpf Ur Epithelial Cells 0-5 (0-5) /hpf Urine Bacteria Rare (FEW) /hpf Urine Mucus Not seen (FEW) /hpf 10/31/21 10/31/21 10/31/21 Range/Units 03:03 04:15 05:10 WBC 5.49 (4.23-9.07) K/mm3 RBC 3.97 L (4.63-6.08) M/mm3 Hgb 12.8 L D (13.7-17.5) gm/dl Hct 36.6 L (40.1-51.0) % MCV 92.2 (79.0-92.2) fl MCH 32.2 (25.7-32.2) pg MCHC 35.0 (32.2-35.5) g/dl RDW Std Deviation 45.0 H (35.1-43.9) fL Plt Count 246 (163-337) K/mm3 MPV 9.5 (9.4-12.3) fl Neut % (Auto) 74.7 H (34.0-67.9) % Lymph % (Auto) 10.7 L (21.8-53.1) % [place] % (Auto) 14.6 H (5.3-12.2) % Eos % (Auto) 0 L (0.8-7.0) Baso % (Auto) 0.0 L (0.1-1.2) % Neut # (Auto) 4.10 (1.78-5.38) K/mm3 Lymph # (Auto) 0.59 L (1.32-3.57) K/mm3 [place] # (Auto) 0.80 (0.30-0.82) K/mm3 Eos # (Auto) 0.00 L (0.04-0.54) K/mm3 Baso # (Auto) 0.00 L (0.01-0.08) K/mm3 D-Dimer, Quantitative (0.19-0.50) mg/L Puncture Site ABG pH (7.35-7.45) ABG pCO2 (35.0-45.0) mmHg ABG pO2 (80.0-100.0) mmHg ABG HCO3 (22.0-26.0) meq/L ABG O2 Saturation (96.0-97.0) % ABG Base Excess (-2-2.0) Adalberto Test A-a Gradient mmHg O2 Delivery Device FiO2 (21.00-100.00) % Sodium (136-145) mEq/L Potassium (3.5-5.1) mEq/L Chloride (98-107) mEq/L Carbon Dioxide (21-32) mEq/L Anion Gap (5-15) BUN (7-18) mg/dL Creatinine (0.7-1.3) mg/dL Est Cr Clr Drug Dosing mL/min Estimated GFR (MDRD) (>60) mL/min BUN/Creatinine Ratio (14-18) Glucose (70-99) mg/dL POC Glucose 119 H 155 H (70-99) mg/dL Calcium (8.5-10.1) mg/dL Phosphorus (2.6-4.7) mg/dL Magnesium (1.8-2.4) mg/dL Total Bilirubin (0.2-1.0) mg/dL AST (15-37) U/L ALT (16-63) U/L Alkaline Phosphatase (46-116) U/L C-Reactive Protein (<1.0) mg/dL Total Protein (6.4-8.2) g/dl Albumin (3.4-5.0) g/dl Globulin gm/dL Albumin/Globulin Ratio (1-2) Urine Color (Yellow) Urine Appearance (Clear) Urine pH (5.0-8.0) Ur Specific [place] (1.005-1.030) Urine Protein (Negative) Urine Glucose (UA) (Negative) Urine Ketones (Negative) Urine Occult Blood (Negative) Urine Nitrite (Negative) Urine Bilirubin (Negative) Urine Urobilinogen (0.2-1.0) Ur Leukocyte Esterase (Negative) U Hyaline Cast (Auto) (0-5) /lpf Urine RBC (0-5) /hpf Urine WBC (0-5) /hpf Ur Epithelial Cells (0-5) /hpf Urine Bacteria (FEW) /hpf Urine Mucus (FEW) /hpf 10/31/21 10/31/21 10/31/21 Range/Units 05:10 05:10 05:12 WBC (4.23-9.07) K/mm3 RBC (4.63-6.08) M/mm3 Hgb (13.7-17.5) gm/dl Hct (40.1-51.0) % MCV (79.0-92.2) fl MCH (25.7-32.2) pg MCHC (32.2-35.5) g/dl RDW Std Deviation (35.1-43.9) fL Plt Count (163-337) K/mm3 MPV (9.4-12.3) fl Neut % (Auto) (34.0-67.9) % Lymph % (Auto) (21.8-53.1) % [place] % (Auto) (5.3-12.2) % Eos % (Auto) (0.8-7.0) Baso % (Auto) (0.1-1.2) % Neut # (Auto) (1.78-5.38) K/mm3 Lymph # (Auto) (1.32-3.57) K/mm3 [place] # (Auto) (0.30-0.82) K/mm3 Eos # (Auto) (0.04-0.54) K/mm3 Baso # (Auto) (0.01-0.08) K/mm3 D-Dimer, Quantitative 0.82 H (0.19-0.50) mg/L Puncture Site ABG pH (7.35-7.45) ABG pCO2 (35.0-45.0) mmHg ABG pO2 (80.0-100.0) mmHg ABG HCO3 (22.0-26.0) meq/L ABG O2 Saturation (96.0-97.0) % ABG Base Excess (-2-2.0) Adalberto Test A-a Gradient mmHg O2 Delivery Device FiO2 (21.00-100.00) % Sodium 141 (136-145) mEq/L Potassium 3.8 (3.5-5.1) mEq/L Chloride 108 H (98-107) mEq/L Carbon Dioxide 18 L (21-32) mEq/L Anion Gap 18.8 H (5-15) BUN 14 (7-18) mg/dL Creatinine 0.9 (0.7-1.3) mg/dL Est Cr Clr Drug Dosing 75.89 mL/min Estimated GFR (MDRD) > 60 (>60) mL/min BUN/Creatinine Ratio 15.6 (14-18) Glucose 192 H (70-99) mg/dL POC Glucose 165 H (70-99) mg/dL Calcium 7.6 L (8.5-10.1) mg/dL Phosphorus 1.3 L (2.6-4.7) mg/dL Magnesium 2.2 (1.8-2.4) mg/dL Total Bilirubin 0.4 (0.2-1.0) mg/dL AST 15 (15-37) U/L ALT 16 (16-63) U/L Alkaline Phosphatase 66 (46-116) U/L C-Reactive Protein 1.7 H* (<1.0) mg/dL Total Protein 6.0 L (6.4-8.2) g/dl Albumin 2.7 L (3.4-5.0) g/dl Globulin 3.3 gm/dL Albumin/Globulin Ratio 0.8 L (1-2) Urine Color (Yellow) Urine Appearance (Clear) Urine pH (5.0-8.0) Ur Specific [place] (1.005-1.030) Urine Protein (Negative) Urine Glucose (UA) (Negative) Urine Ketones (Negative) Urine Occult Blood (Negative) Urine Nitrite (Negative) Urine Bilirubin (Negative) Urine Urobilinogen (0.2-1.0) Ur Leukocyte Esterase (Negative) U Hyaline Cast (Auto) (0-5) /lpf Urine RBC (0-5) /hpf Urine WBC (0-5) /hpf Ur Epithelial Cells (0-5) /hpf Urine Bacteria (FEW) /hpf Urine Mucus (FEW) /hpf 10/31/21 10/31/21 10/31/21 Range/Units 06:03 07:05 08:21 WBC (4.23-9.07) K/mm3 RBC (4.63-6.08) M/mm3 Hgb (13.7-17.5) gm/dl Hct (40.1-51.0) % MCV (79.0-92.2) fl MCH (25.7-32.2) pg MCHC (32.2-35.5) g/dl RDW Std Deviation (35.1-43.9) fL Plt Count (163-337) K/mm3 MPV (9.4-12.3) fl Neut % (Auto) (34.0-67.9) % Lymph % (Auto) (21.8-53.1) % [place] % (Auto) (5.3-12.2) % Eos % (Auto) (0.8-7.0) Baso % (Auto) (0.1-1.2) % Neut # (Auto) (1.78-5.38) K/mm3 Lymph # (Auto) (1.32-3.57) K/mm3 [place] # (Auto) (0.30-0.82) K/mm3 Eos # (Auto) (0.04-0.54) K/mm3 Baso # (Auto) (0.01-0.08) K/mm3 D-Dimer, Quantitative (0.19-0.50) mg/L Puncture Site ABG pH (7.35-7.45) ABG pCO2 (35.0-45.0) mmHg ABG pO2 (80.0-100.0) mmHg ABG HCO3 (22.0-26.0) meq/L ABG O2 Saturation (96.0-97.0) % ABG Base Excess (-2-2.0) Adalberto Test A-a Gradient mmHg O2 Delivery Device FiO2 (21.00-100.00) % Sodium (136-145) mEq/L Potassium (3.5-5.1) mEq/L Chloride (98-107) mEq/L Carbon Dioxide (21-32) mEq/L Anion Gap (5-15) BUN (7-18) mg/dL Creatinine (0.7-1.3) mg/dL Est Cr Clr Drug Dosing mL/min Estimated GFR (MDRD) (>60) mL/min BUN/Creatinine Ratio (14-18) Glucose (70-99) mg/dL POC Glucose 198 H 209 H 160 H (70-99) mg/dL Calcium (8.5-10.1) mg/dL Phosphorus (2.6-4.7) mg/dL Magnesium (1.8-2.4) mg/dL Total Bilirubin (0.2-1.0) mg/dL AST (15-37) U/L ALT (16-63) U/L Alkaline Phosphatase (46-116) U/L C-Reactive Protein (<1.0) mg/dL Total Protein (6.4-8.2) g/dl Albumin (3.4-5.0) g/dl Globulin gm/dL Albumin/Globulin Ratio (1-2) Urine Color (Yellow) Urine Appearance (Clear) Urine pH (5.0-8.0) Ur Specific [place] (1.005-1.030) Urine Protein (Negative) Urine Glucose (UA) (Negative) Urine Ketones (Negative) Urine Occult Blood (Negative) Urine Nitrite (Negative) Urine Bilirubin (Negative) Urine Urobilinogen (0.2-1.0) Ur Leukocyte Esterase (Negative) U Hyaline Cast (Auto) (0-5) /lpf Urine RBC (0-5) /hpf Urine WBC (0-5) /hpf Ur Epithelial Cells (0-5) /hpf Urine Bacteria (FEW) /hpf Urine Mucus (FEW) /hpf 10/31/21 10/31/21 10/31/21 Range/Units 09:01 10:05 11:14 WBC (4.23-9.07) K/mm3 RBC (4.63-6.08) M/mm3 Hgb (13.7-17.5) gm/dl Hct (40.1-51.0) % MCV (79.0-92.2) fl MCH (25.7-32.2) pg MCHC (32.2-35.5) g/dl RDW Std Deviation (35.1-43.9) fL Plt Count (163-337) K/mm3 MPV (9.4-12.3) fl Neut % (Auto) (34.0-67.9) % Lymph % (Auto) (21.8-53.1) % [place] % (Auto) (5.3-12.2) % Eos % (Auto) (0.8-7.0) Baso % (Auto) (0.1-1.2) % Neut # (Auto) (1.78-5.38) K/mm3 Lymph # (Auto) (1.32-3.57) K/mm3 [place] # (Auto) (0.30-0.82) K/mm3 Eos # (Auto) (0.04-0.54) K/mm3 Baso # (Auto) (0.01-0.08) K/mm3 D-Dimer, Quantitative (0.19-0.50) mg/L Puncture Site ABG pH (7.35-7.45) ABG pCO2 (35.0-45.0) mmHg ABG pO2 (80.0-100.0) mmHg ABG HCO3 (22.0-26.0) meq/L ABG O2 Saturation (96.0-97.0) % ABG Base Excess (-2-2.0) Adalberto Test A-a Gradient mmHg O2 Delivery Device FiO2 (21.00-100.00) % Sodium (136-145) mEq/L Potassium (3.5-5.1) mEq/L Chloride (98-107) mEq/L Carbon Dioxide (21-32) mEq/L Anion Gap (5-15) BUN (7-18) mg/dL Creatinine (0.7-1.3) mg/dL Est Cr Clr Drug Dosing mL/min Estimated GFR (MDRD) (>60) mL/min BUN/Creatinine Ratio (14-18) Glucose (70-99) mg/dL POC Glucose 190 H 192 H 203 H (70-99) mg/dL Calcium (8.5-10.1) mg/dL Phosphorus (2.6-4.7) mg/dL Magnesium (1.8-2.4) mg/dL Total Bilirubin (0.2-1.0) mg/dL AST (15-37) U/L ALT (16-63) U/L Alkaline Phosphatase (46-116) U/L C-Reactive Protein (<1.0) mg/dL Total Protein (6.4-8.2) g/dl Albumin (3.4-5.0) g/dl Globulin gm/dL Albumin/Globulin Ratio (1-2) Urine Color (Yellow) Urine Appearance (Clear) Urine pH (5.0-8.0) Ur Specific [place] (1.005-1.030) Urine Protein (Negative) Urine Glucose (UA) (Negative) Urine Ketones (Negative) Urine Occult Blood (Negative) Urine Nitrite (Negative) Urine Bilirubin (Negative) Urine Urobilinogen (0.2-1.0) Ur Leukocyte Esterase (Negative) U Hyaline Cast (Auto) (0-5) /lpf Urine RBC (0-5) /hpf Urine WBC (0-5) /hpf Ur Epithelial Cells (0-5) /hpf Urine Bacteria (FEW) /hpf Urine Mucus (FEW) /hpf 10/31/21 10/31/21 10/31/21 Range/Units 11:15 12:27 13:29 WBC (4.23-9.07) K/mm3 RBC (4.63-6.08) M/mm3 Hgb (13.7-17.5) gm/dl Hct (40.1-51.0) % MCV (79.0-92.2) fl MCH (25.7-32.2) pg MCHC (32.2-35.5) g/dl RDW Std Deviation (35.1-43.9) fL Plt Count (163-337) K/mm3 MPV (9.4-12.3) fl Neut % (Auto) (34.0-67.9) % Lymph % (Auto) (21.8-53.1) % [place] % (Auto) (5.3-12.2) % Eos % (Auto) (0.8-7.0) Baso % (Auto) (0.1-1.2) % Neut # (Auto) (1.78-5.38) K/mm3 Lymph # (Auto) (1.32-3.57) K/mm3 [place] # (Auto) (0.30-0.82) K/mm3 Eos # (Auto) (0.04-0.54) K/mm3 Baso # (Auto) (0.01-0.08) K/mm3 D-Dimer, Quantitative (0.19-0.50) mg/L Puncture Site ABG pH (7.35-7.45) ABG pCO2 (35.0-45.0) mmHg ABG pO2 (80.0-100.0) mmHg ABG HCO3 (22.0-26.0) meq/L ABG O2 Saturation (96.0-97.0) % ABG Base Excess (-2-2.0) Adalberto Test A-a Gradient mmHg O2 Delivery Device FiO2 (21.00-100.00) % Sodium 140 (136-145) mEq/L Potassium 3.6 (3.5-5.1) mEq/L Chloride 106 (98-107) mEq/L Carbon Dioxide 22 (21-32) mEq/L Anion Gap 15.6 H (5-15) BUN 9 (7-18) mg/dL Creatinine 0.9 (0.7-1.3) mg/dL Est Cr Clr Drug Dosing 75.89 mL/min Estimated GFR (MDRD) > 60 (>60) mL/min BUN/Creatinine Ratio 10.0 L (14-18) Glucose 210 H (70-99) mg/dL POC Glucose 191 H 178 H (70-99) mg/dL Calcium 7.5 L (8.5-10.1) mg/dL Phosphorus 1.1 L (2.6-4.7) mg/dL Magnesium 1.9 (1.8-2.4) mg/dL Total Bilirubin (0.2-1.0) mg/dL AST (15-37) U/L ALT (16-63) U/L Alkaline Phosphatase (46-116) U/L C-Reactive Protein (<1.0) mg/dL Total Protein (6.4-8.2) g/dl Albumin (3.4-5.0) g/dl Globulin gm/dL Albumin/Globulin Ratio (1-2) Urine Color (Yellow) Urine Appearance (Clear) Urine pH (5.0-8.0) Ur Specific [place] (1.005-1.030) Urine Protein (Negative) Urine Glucose (UA) (Negative) Urine Ketones (Negative) Urine Occult Blood (Negative) Urine Nitrite (Negative) Urine Bilirubin (Negative) Urine Urobilinogen (0.2-1.0) Ur Leukocyte Esterase (Negative) U Hyaline Cast (Auto) (0-5) /lpf Urine RBC (0-5) /hpf Urine WBC (0-5) /hpf Ur Epithelial Cells (0-5) /hpf Urine Bacteria (FEW) /hpf Urine Mucus (FEW) /hpf Result Diagrams: 10/31/21 05:10 10/31/21 11:15 Sepsis Event Note - Evaluation Sepsis Screening Result: No Definite Risk - Focused Exam Vital Signs: Vital Signs Temp Pulse Resp BP BP Pulse Ox 10/31/21 08:54 97 F 16 100 10/31/21 08:01 100 100 10/31/21 08:00 101 H 157/82 H 100 10/31/21 07:59 111 H 100 10/31/21 07:00 92 98 10/31/21 06:00 101 H 100 10/31/21 05:00 104 H 100 10/31/21 04:00 97.9 F 16 131/52 L 100 10/31/21 03:00 100 100 10/31/21 02:00 101 H 100 - Problem List & Annotations (1) COVID-19 SNOMED Code(s): 292198031 Code(s): U07.1 - COVID-19 Status: Acute Current Visit: Yes (2) Diabetic ketoacidosis associated with type 2 diabetes mellitus SNOMED Code(s): 924630855, 464046946 Code(s): E11.10 - TYPE 2 DIABETES MELLITUS WITH KETOACIDOSIS WITHOUT COMA Status: Acute Current Visit: Yes (3) Acute renal insufficiency SNOMED Code(s): 604802568 Code(s): N28.9 - DISORDER OF KIDNEY AND URETER, UNSPECIFIED Status: Acute Current Visit: Yes - Problem List Review Problem List Initiated/Reviewed/Updated: Yes - My Orders Last 24 Hours: My Active Orders 10/30/21 Dinner Nothing per Oral Now Diet [DIET] 10/30/21 20:30 Oxygen Therapy [RC] PRN Up With Assistance [RC] ASDIRECTED VTE/DVT Education [RC] Resuscitation Status Routine 10/30/21 20:31 Acetaminophen [TylenoL] 650 mg PO Q4H PRN Ondansetron [Zofran] 4 mg IV Q6H PRN 10/30/21 22:42 Communication Order [RC] ASDIRECTED 10/30/21 22:45 D5 1/2 NS w/ 20 mEq/L KCl 1,000 ml IV ASDIRECTED 10/31/21 09:00 Enoxaparin [Lovenox] 40 mg SUBCUT DAILY 10/31/21 13:08 GLYCOSYLATED HEMOGLOBIN,HGBA1C [CHEM] Routine 11/01/21 05:11 C-REACTIVE PROTEIN [CHEM] AM CBC WITH AUTO DIFF [HEME] AM CMP [COMPREHENSIVE METABOLIC PN,CMP] [CHEM] AM MAGNESIUM [CHEM] AM PHOSPHORUS [CHEM] AM 11/02/21 05:11 C-REACTIVE PROTEIN [CHEM] AM CBC WITH AUTO DIFF [HEME] AM CMP [COMPREHENSIVE METABOLIC PN,CMP] [CHEM] AM MAGNESIUM [CHEM] AM PHOSPHORUS [CHEM] AM 11/03/21 05:11 C-REACTIVE PROTEIN [CHEM] AM CBC WITH AUTO DIFF [HEME] AM CMP [COMPREHENSIVE METABOLIC PN,CMP] [CHEM] AM MAGNESIUM [CHEM] AM PHOSPHORUS [CHEM] AM - Plan Plan:: 61-year-old male with history of diabetes treated on Metformin developed Covid- like symptoms on Tuesday with increasing weakness over the last couple of days with polyuria polydipsia. He received Regeneron monoclonal antibodies in the emergency department. DKA Acute renal insufficiency COVID-19 infection without pneumonia nor hypoxemia * Patient significantly dehydrated with hypovolemia and heart rates in the 120s. Blood pressures good. * Initial blood sugars 483 * Ketones 19.7 * Initial ABG pH 7.15, PCO2 10.2, PO2 103, bicarb 3.6 * ABG improving with treatment of his DKA. Most recent pH is 7.28 * Arrived in the ICU on insulin drip and D5 normal saline with 20 mEq of KCl wit h blood sugars in the low 200s. * Initial creatinine of 2.1 improving with fluid resuscitation. 10/31/2021 Anion gap is almost closed at 15.6. He continues on D5 and insulin drip. We will continue to follow BMP and ketones and when the anion gap and ketones are normal we will switch over to p.o. intake and subcu insulin. Renal function has returned to normal. He did have a significant drop in hemoglobin which is likely hemodilution. Respiratory status is stable without tachypnea or hypoxemia. Plan * Admit to ICU * Respiratory and contact isolation secondary to COVID-19 * Continue DKA protocol * When anion gap, ketones, and acidosis corrects switch to subcu insulin * Continuous pulse ox * Check BMP and mag every 4 hours * Venous pH as needed * CBC, CMP, CRP, mag, Phos, TSH, hemoglobin A1c in the morning * VTE prophylaxis with Lovenox * CODE STATUS: Full code
[2021-10-31 13:53] LABS: HEMOGLOBIN A1C 13.1 %
[2021-10-31] MEDS ORDERED: Potassium Chloride 10 MEQ in Premix Bag 1 BAG IV ONE ×4 (18:00→21:00)
[2021-10-31] MEDS ORDERED: Sodium Phosphate 30 MMOLE in Sodium Chloride 0.9% 250 ML IV ONE ×2 (21:00→21:30)
[2021-11-01] MEDS: D5 1/2 NS w/ 20 mEq/L KCl 1,000 ML IV SCH ×2 (01:30→06:31)
[2021-11-01] MEDS ORDERED: Magnesium Sulfate/Water 4 GM in Premix Bag 1 BAG IV ONE (05:53)
[2021-11-01] MEDS ORDERED: Sodium Phosphate 30 MMOLE in Sodium Chloride 0.9% 250 ML IV ONE ×2 (08:00→09:00)
[2021-11-01] MEDS ORDERED: Insulin Glargine,Hum.Rec.Anlog 100 UNIT/ML 3 ML Pen SUBCUT SCH (09:15)
[2021-11-01] MEDS: Enoxaparin 40 MG/0.4 ML Syringe SUBCUT SCH (09:32)
[2021-11-01] MEDS: Insulin Lispro 100 Unit/ML 3 ML KwikPen SUBCUT SCH ×6 (11:01→21:06)
[2021-11-01] MEDS ORDERED: Potassium Phosphates 30 MMOLE in Sodium Chloride 0.9% 500 ML IV SCH (12:00)
[2021-11-01] MEDS ORDERED: 50% Dextrose in Water 50 ML Syringe IVPUSH STA (13:25)
[2021-11-01] MEDS ORDERED: 50% Dextrose in Water 50 ML Syringe ONE (13:28)
--- NOTE | 2021-11-01 14:54 | PCM.PN ---
- General Info Date of Service: 11/01/21 Admission Dx/Problem (Free Text): Admission Diagnosis/Problem Admission Diagnosis/Problem Ketoacidosis in patient with type 2 diabetes mellitus Subjective Update: Patient's anion gap closed and ketosis resolved. Switched over to subcu insulin and p.o. diet. Patient started on 0.8units/kg of insulin divided 50% long- acting and 50% short acting. Patient was started on Glucophage 25 units and Humalog 8 units with each meal. Patient did have a low blood sugar of 63 After lunch. Functional Status: Reports: Pain Controlled - Review of Systems General: Reports: No Symptoms HEENT: Reports: No Symptoms Pulmonary: Reports: No Symptoms Cardiovascular: Reports: No Symptoms Gastrointestinal: Reports: No Symptoms Musculoskeletal: Reports: No Symptoms - Patient Data Vitals - Most Recent: Last Vital Signs Temp 97.4 F 11/01/21 12:21 Pulse 104 H 11/01/21 09:04 Resp 16 11/01/21 12:21 BP 138/74 11/01/21 12:21 Pulse Ox 97 11/01/21 12:21 Weight - Most Recent: 143 lb I&O - Last 24 Hours: Intake & Output 10/31/21 11/01/21 11/01/21 22:59 06:59 14:59 Intake Total 2935 2629 Output Total 1900 Balance 1035 2629 Lab Results Last 24 Hours: Laboratory Results - last 24 hr 10/31/21 10/31/21 10/31/21 Range/Units 15:15 15:15 15:15 WBC (4.23-9.07) K/mm3 RBC (4.63-6.08) M/mm3 Hgb (13.7-17.5) gm/dl Hct (40.1-51.0) % MCV (79.0-92.2) fl MCH (25.7-32.2) pg MCHC (32.2-35.5) g/dl RDW Std Deviation (35.1-43.9) fL Plt Count (163-337) K/mm3 MPV (9.4-12.3) fl Neut % (Auto) (34.0-67.9) % Lymph % (Auto) (21.8-53.1) % [place] % (Auto) (5.3-12.2) % Eos % (Auto) (0.8-7.0) Baso % (Auto) (0.1-1.2) % Neut # (Auto) (1.78-5.38) K/mm3 Lymph # (Auto) (1.32-3.57) K/mm3 [place] # (Auto) (0.30-0.82) K/mm3 Eos # (Auto) (0.04-0.54) K/mm3 Baso # (Auto) (0.01-0.08) K/mm3 Manual Slide Review VBG pH (7.30-7.40) VBG pCO2 (41-51) mmHg VBG pO2 (40-80) mmHG VBG HCO3 (22-26) meq/L VBG O2 Saturation VBG Base Excess (-4.0-2.0) O2 Delivery Device Sodium 140 (136-145) mEq/L Potassium 3.4 L (3.5-5.1) mEq/L Chloride 106 (98-107) mEq/L Carbon Dioxide 21 (21-32) mEq/L Anion Gap 16.4 H (5-15) BUN 9 (7-18) mg/dL Creatinine 0.8 (0.7-1.3) mg/dL Est Cr Clr Drug Dosing 85.38 mL/min Estimated GFR (MDRD) > 60 (>60) mL/min BUN/Creatinine Ratio 11.3 L (14-18) Glucose 161 H (70-99) mg/dL POC Glucose 165 H (70-99) mg/dL Calcium 7.6 L (8.5-10.1) mg/dL Phosphorus (2.6-4.7) mg/dL Magnesium (1.8-2.4) mg/dL Total Bilirubin (0.2-1.0) mg/dL AST (15-37) U/L ALT (16-63) U/L Alkaline Phosphatase (46-116) U/L C-Reactive Protein (<1.0) mg/dL Total Protein (6.4-8.2) g/dl Albumin (3.4-5.0) g/dl Globulin gm/dL Albumin/Globulin Ratio (1-2) Ketones 16.60 (0.0-0.3) mM 10/31/21 10/31/21 10/31/21 Range/Units 15:59 17:01 18:07 WBC (4.23-9.07) K/mm3 RBC (4.63-6.08) M/mm3 Hgb (13.7-17.5) gm/dl Hct (40.1-51.0) % MCV (79.0-92.2) fl MCH (25.7-32.2) pg MCHC (32.2-35.5) g/dl RDW Std Deviation (35.1-43.9) fL Plt Count (163-337) K/mm3 MPV (9.4-12.3) fl Neut % (Auto) (34.0-67.9) % Lymph % (Auto) (21.8-53.1) % [place] % (Auto) (5.3-12.2) % Eos % (Auto) (0.8-7.0) Baso % (Auto) (0.1-1.2) % Neut # (Auto) (1.78-5.38) K/mm3 Lymph # (Auto) (1.32-3.57) K/mm3 [place] # (Auto) (0.30-0.82) K/mm3 Eos # (Auto) (0.04-0.54) K/mm3 Baso # (Auto) (0.01-0.08) K/mm3 Manual Slide Review VBG pH (7.30-7.40) VBG pCO2 (41-51) mmHg VBG pO2 (40-80) mmHG VBG HCO3 (22-26) meq/L VBG O2 Saturation VBG Base Excess (-4.0-2.0) O2 Delivery Device Sodium (136-145) mEq/L Potassium (3.5-5.1) mEq/L Chloride (98-107) mEq/L Carbon Dioxide (21-32) mEq/L Anion Gap (5-15) BUN (7-18) mg/dL Creatinine (0.7-1.3) mg/dL Est Cr Clr Drug Dosing mL/min Estimated GFR (MDRD) (>60) mL/min BUN/Creatinine Ratio (14-18) Glucose (70-99) mg/dL POC Glucose 146 H 171 H 220 H (70-99) mg/dL Calcium (8.5-10.1) mg/dL Phosphorus (2.6-4.7) mg/dL Magnesium (1.8-2.4) mg/dL Total Bilirubin (0.2-1.0) mg/dL AST (15-37) U/L ALT (16-63) U/L Alkaline Phosphatase (46-116) U/L C-Reactive Protein (<1.0) mg/dL Total Protein (6.4-8.2) g/dl Albumin (3.4-5.0) g/dl Globulin gm/dL Albumin/Globulin Ratio (1-2) Ketones (0.0-0.3) mM 10/31/21 10/31/21 10/31/21 Range/Units 19:00 20:04 21:03 WBC (4.23-9.07) K/mm3 RBC (4.63-6.08) M/mm3 Hgb (13.7-17.5) gm/dl Hct (40.1-51.0) % MCV (79.0-92.2) fl MCH (25.7-32.2) pg MCHC (32.2-35.5) g/dl RDW Std Deviation (35.1-43.9) fL Plt Count (163-337) K/mm3 MPV (9.4-12.3) fl Neut % (Auto) (34.0-67.9) % Lymph % (Auto) (21.8-53.1) % [place] % (Auto) (5.3-12.2) % Eos % (Auto) (0.8-7.0) Baso % (Auto) (0.1-1.2) % Neut # (Auto) (1.78-5.38) K/mm3 Lymph # (Auto) (1.32-3.57) K/mm3 [place] # (Auto) (0.30-0.82) K/mm3 Eos # (Auto) (0.04-0.54) K/mm3 Baso # (Auto) (0.01-0.08) K/mm3 Manual Slide Review VBG pH (7.30-7.40) VBG pCO2 (41-51) mmHg VBG pO2 (40-80) mmHG VBG HCO3 (22-26) meq/L VBG O2 Saturation VBG Base Excess (-4.0-2.0) O2 Delivery Device Sodium (136-145) mEq/L Potassium (3.5-5.1) mEq/L Chloride (98-107) mEq/L Carbon Dioxide (21-32) mEq/L Anion Gap (5-15) BUN (7-18) mg/dL Creatinine (0.7-1.3) mg/dL Est Cr Clr Drug Dosing mL/min Estimated GFR (MDRD) (>60) mL/min BUN/Creatinine Ratio (14-18) Glucose (70-99) mg/dL POC Glucose 197 H 186 H 173 H (70-99) mg/dL Calcium (8.5-10.1) mg/dL Phosphorus (2.6-4.7) mg/dL Magnesium (1.8-2.4) mg/dL Total Bilirubin (0.2-1.0) mg/dL AST (15-37) U/L ALT (16-63) U/L Alkaline Phosphatase (46-116) U/L C-Reactive Protein (<1.0) mg/dL Total Protein (6.4-8.2) g/dl Albumin (3.4-5.0) g/dl Globulin gm/dL Albumin/Globulin Ratio (1-2) Ketones (0.0-0.3) mM 10/31/21 10/31/21 10/31/21 Range/Units 22:02 22:15 22:15 WBC (4.23-9.07) K/mm3 RBC (4.63-6.08) M/mm3 Hgb (13.7-17.5) gm/dl Hct (40.1-51.0) % MCV (79.0-92.2) fl MCH (25.7-32.2) pg MCHC (32.2-35.5) g/dl RDW Std Deviation (35.1-43.9) fL Plt Count (163-337) K/mm3 MPV (9.4-12.3) fl Neut % (Auto) (34.0-67.9) % Lymph % (Auto) (21.8-53.1) % [place] % (Auto) (5.3-12.2) % Eos % (Auto) (0.8-7.0) Baso % (Auto) (0.1-1.2) % Neut # (Auto) (1.78-5.38) K/mm3 Lymph # (Auto) (1.32-3.57) K/mm3 [place] # (Auto) (0.30-0.82) K/mm3 Eos # (Auto) (0.04-0.54) K/mm3 Baso # (Auto) (0.01-0.08) K/mm3 Manual Slide Review VBG pH 7.45 H (7.30-7.40) VBG pCO2 30.4 L (41-51) mmHg VBG pO2 33.0 L (40-80) mmHG VBG HCO3 20.6 L (22-26) meq/L VBG O2 Saturation 71.6 VBG Base Excess -2.0 (-4.0-2.0) O2 Delivery Device Room air Sodium 138 (136-145) mEq/L Potassium 3.5 (3.5-5.1) mEq/L Chloride 103 (98-107) mEq/L Carbon Dioxide 22 (21-32) mEq/L Anion Gap 16.5 H (5-15) BUN 6 L (7-18) mg/dL Creatinine 0.9 (0.7-1.3) mg/dL Est Cr Clr Drug Dosing 75.89 mL/min Estimated GFR (MDRD) > 60 (>60) mL/min BUN/Creatinine Ratio 6.7 L (14-18) Glucose 166 H (70-99) mg/dL POC Glucose 160 H (70-99) mg/dL Calcium 7.8 L (8.5-10.1) mg/dL Phosphorus (2.6-4.7) mg/dL Magnesium 1.5 L (1.8-2.4) mg/dL Total Bilirubin (0.2-1.0) mg/dL AST (15-37) U/L ALT (16-63) U/L Alkaline Phosphatase (46-116) U/L C-Reactive Protein (<1.0) mg/dL Total Protein (6.4-8.2) g/dl Albumin (3.4-5.0) g/dl Globulin gm/dL Albumin/Globulin Ratio (1-2) Ketones (0.0-0.3) mM 10/31/21 11/01/21 11/01/21 Range/Units 23:03 00:02 01:02 WBC (4.23-9.07) K/mm3 RBC (4.63-6.08) M/mm3 Hgb (13.7-17.5) gm/dl Hct (40.1-51.0) % MCV (79.0-92.2) fl MCH (25.7-32.2) pg MCHC (32.2-35.5) g/dl RDW Std Deviation (35.1-43.9) fL Plt Count (163-337) K/mm3 MPV (9.4-12.3) fl Neut % (Auto) (34.0-67.9) % Lymph % (Auto) (21.8-53.1) % [place] % (Auto) (5.3-12.2) % Eos % (Auto) (0.8-7.0) Baso % (Auto) (0.1-1.2) % Neut # (Auto) (1.78-5.38) K/mm3 Lymph # (Auto) (1.32-3.57) K/mm3 [place] # (Auto) (0.30-0.82) K/mm3 Eos # (Auto) (0.04-0.54) K/mm3 Baso # (Auto) (0.01-0.08) K/mm3 Manual Slide Review VBG pH (7.30-7.40) VBG pCO2 (41-51) mmHg VBG pO2 (40-80) mmHG VBG HCO3 (22-26) meq/L VBG O2 Saturation VBG Base Excess (-4.0-2.0) O2 Delivery Device Sodium (136-145) mEq/L Potassium (3.5-5.1) mEq/L Chloride (98-107) mEq/L Carbon Dioxide (21-32) mEq/L Anion Gap (5-15) BUN (7-18) mg/dL Creatinine (0.7-1.3) mg/dL Est Cr Clr Drug Dosing mL/min Estimated GFR (MDRD) (>60) mL/min BUN/Creatinine Ratio (14-18) Glucose (70-99) mg/dL POC Glucose 165 H 172 H 167 H (70-99) mg/dL Calcium (8.5-10.1) mg/dL Phosphorus (2.6-4.7) mg/dL Magnesium (1.8-2.4) mg/dL Total Bilirubin (0.2-1.0) mg/dL AST (15-37) U/L ALT (16-63) U/L Alkaline Phosphatase (46-116) U/L C-Reactive Protein (<1.0) mg/dL Total Protein (6.4-8.2) g/dl Albumin (3.4-5.0) g/dl Globulin gm/dL Albumin/Globulin Ratio (1-2) Ketones (0.0-0.3) mM 11/01/21 11/01/21 11/01/21 Range/Units 02:02 03:05 04:02 WBC (4.23-9.07) K/mm3 RBC (4.63-6.08) M/mm3 Hgb (13.7-17.5) gm/dl Hct (40.1-51.0) % MCV (79.0-92.2) fl MCH (25.7-32.2) pg MCHC (32.2-35.5) g/dl RDW Std Deviation (35.1-43.9) fL Plt Count (163-337) K/mm3 MPV (9.4-12.3) fl Neut % (Auto) (34.0-67.9) % Lymph % (Auto) (21.8-53.1) % [place] % (Auto) (5.3-12.2) % Eos % (Auto) (0.8-7.0) Baso % (Auto) (0.1-1.2) % Neut # (Auto) (1.78-5.38) K/mm3 Lymph # (Auto) (1.32-3.57) K/mm3 [place] # (Auto) (0.30-0.82) K/mm3 Eos # (Auto) (0.04-0.54) K/mm3 Baso # (Auto) (0.01-0.08) K/mm3 Manual Slide Review VBG pH (7.30-7.40) VBG pCO2 (41-51) mmHg VBG pO2 (40-80) mmHG VBG HCO3 (22-26) meq/L VBG O2 Saturation VBG Base Excess (-4.0-2.0) O2 Delivery Device Sodium (136-145) mEq/L Potassium (3.5-5.1) mEq/L Chloride (98-107) mEq/L Carbon Dioxide (21-32) mEq/L Anion Gap (5-15) BUN (7-18) mg/dL Creatinine (0.7-1.3) mg/dL Est Cr Clr Drug Dosing mL/min Estimated GFR (MDRD) (>60) mL/min BUN/Creatinine Ratio (14-18) Glucose (70-99) mg/dL POC Glucose 146 H 142 H 127 H (70-99) mg/dL Calcium (8.5-10.1) mg/dL Phosphorus (2.6-4.7) mg/dL Magnesium (1.8-2.4) mg/dL Total Bilirubin (0.2-1.0) mg/dL AST (15-37) U/L ALT (16-63) U/L Alkaline Phosphatase (46-116) U/L C-Reactive Protein (<1.0) mg/dL Total Protein (6.4-8.2) g/dl Albumin (3.4-5.0) g/dl Globulin gm/dL Albumin/Globulin Ratio (1-2) Ketones (0.0-0.3) mM 11/01/21 11/01/21 11/01/21 Range/Units 04:10 04:10 04:10 WBC 3.25 L (4.23-9.07) K/mm3 RBC 3.76 L (4.63-6.08) M/mm3 Hgb 12.1 L (13.7-17.5) gm/dl Hct 34.3 L (40.1-51.0) % MCV 91.2 (79.0-92.2) fl MCH 32.2 (25.7-32.2) pg MCHC 35.3 (32.2-35.5) g/dl RDW Std Deviation 43.8 (35.1-43.9) fL Plt Count 178 (163-337) K/mm3 MPV 9.5 (9.4-12.3) fl Neut % (Auto) 64.6 (34.0-67.9) % Lymph % (Auto) 14.5 L (21.8-53.1) % [place] % (Auto) 20.9 H (5.3-12.2) % Eos % (Auto) 0 L (0.8-7.0) Baso % (Auto) 0.0 L (0.1-1.2) % Neut # (Auto) 2.10 (1.78-5.38) K/mm3 Lymph # (Auto) 0.47 L (1.32-3.57) K/mm3 [place] # (Auto) 0.68 (0.30-0.82) K/mm3 Eos # (Auto) 0.00 L (0.04-0.54) K/mm3 Baso # (Auto) 0.00 L (0.01-0.08) K/mm3 Manual Slide Review Abnormal smear VBG pH (7.30-7.40) VBG pCO2 (41-51) mmHg VBG pO2 (40-80) mmHG VBG HCO3 (22-26) meq/L VBG O2 Saturation VBG Base Excess (-4.0-2.0) O2 Delivery Device Sodium 137 (136-145) mEq/L Potassium 3.4 L (3.5-5.1) mEq/L Chloride 105 (98-107) mEq/L Carbon Dioxide 22 (21-32) mEq/L Anion Gap 13.4 (5-15) BUN 5 L (7-18) mg/dL Creatinine 0.7 (0.7-1.3) mg/dL Est Cr Clr Drug Dosing 100.38 mL/min Estimated GFR (MDRD) > 60 (>60) mL/min BUN/Creatinine Ratio 7.1 L (14-18) Glucose 122 H (70-99) mg/dL POC Glucose (70-99) mg/dL Calcium 7.1 L (8.5-10.1) mg/dL Phosphorus 0.9 L (2.6-4.7) mg/dL Magnesium 1.3 L (1.8-2.4) mg/dL Total Bilirubin 0.4 (0.2-1.0) mg/dL AST 17 (15-37) U/L ALT 14 L (16-63) U/L Alkaline Phosphatase 62 (46-116) U/L C-Reactive Protein 5.4 H* (<1.0) mg/dL Total Protein 5.1 L (6.4-8.2) g/dl Albumin 2.3 L (3.4-5.0) g/dl Globulin 2.8 gm/dL Albumin/Globulin Ratio 0.8 L (1-2) Ketones 0.12 (0.0-0.3) mM 11/01/21 11/01/21 11/01/21 Range/Units 05:00 06:01 06:58 WBC (4.23-9.07) K/mm3 RBC (4.63-6.08) M/mm3 Hgb (13.7-17.5) gm/dl Hct (40.1-51.0) % MCV (79.0-92.2) fl MCH (25.7-32.2) pg MCHC (32.2-35.5) g/dl RDW Std Deviation (35.1-43.9) fL Plt Count (163-337) K/mm3 MPV (9.4-12.3) fl Neut % (Auto) (34.0-67.9) % Lymph % (Auto) (21.8-53.1) % [place] % (Auto) (5.3-12.2) % Eos % (Auto) (0.8-7.0) Baso % (Auto) (0.1-1.2) % Neut # (Auto) (1.78-5.38) K/mm3 Lymph # (Auto) (1.32-3.57) K/mm3 [place] # (Auto) (0.30-0.82) K/mm3 Eos # (Auto) (0.04-0.54) K/mm3 Baso # (Auto) (0.01-0.08) K/mm3 Manual Slide Review VBG pH (7.30-7.40) VBG pCO2 (41-51) mmHg VBG pO2 (40-80) mmHG VBG HCO3 (22-26) meq/L VBG O2 Saturation VBG Base Excess (-4.0-2.0) O2 Delivery Device Sodium (136-145) mEq/L Potassium (3.5-5.1) mEq/L Chloride (98-107) mEq/L Carbon Dioxide (21-32) mEq/L Anion Gap (5-15) BUN (7-18) mg/dL Creatinine (0.7-1.3) mg/dL Est Cr Clr Drug Dosing mL/min Estimated GFR (MDRD) (>60) mL/min BUN/Creatinine Ratio (14-18) Glucose (70-99) mg/dL POC Glucose 97 107 H 146 H (70-99) mg/dL Calcium (8.5-10.1) mg/dL Phosphorus (2.6-4.7) mg/dL Magnesium (1.8-2.4) mg/dL Total Bilirubin (0.2-1.0) mg/dL AST (15-37) U/L ALT (16-63) U/L Alkaline Phosphatase (46-116) U/L C-Reactive Protein (<1.0) mg/dL Total Protein (6.4-8.2) g/dl Albumin (3.4-5.0) g/dl Globulin gm/dL Albumin/Globulin Ratio (1-2) Ketones (0.0-0.3) mM 11/01/21 11/01/21 11/01/21 Range/Units 08:07 09:03 10:15 WBC (4.23-9.07) K/mm3 RBC (4.63-6.08) M/mm3 Hgb (13.7-17.5) gm/dl Hct (40.1-51.0) % MCV (79.0-92.2) fl MCH (25.7-32.2) pg MCHC (32.2-35.5) g/dl RDW Std Deviation (35.1-43.9) fL Plt Count (163-337) K/mm3 MPV (9.4-12.3) fl Neut % (Auto) (34.0-67.9) % Lymph % (Auto) (21.8-53.1) % [place] % (Auto) (5.3-12.2) % Eos % (Auto) (0.8-7.0) Baso % (Auto) (0.1-1.2) % Neut # (Auto) (1.78-5.38) K/mm3 Lymph # (Auto) (1.32-3.57) K/mm3 [place] # (Auto) (0.30-0.82) K/mm3 Eos # (Auto) (0.04-0.54) K/mm3 Baso # (Auto) (0.01-0.08) K/mm3 Manual Slide Review VBG pH (7.30-7.40) VBG pCO2 (41-51) mmHg VBG pO2 (40-80) mmHG VBG HCO3 (22-26) meq/L VBG O2 Saturation VBG Base Excess (-4.0-2.0) O2 Delivery Device Sodium (136-145) mEq/L Potassium (3.5-5.1) mEq/L Chloride (98-107) mEq/L Carbon Dioxide (21-32) mEq/L Anion Gap (5-15) BUN (7-18) mg/dL Creatinine (0.7-1.3) mg/dL Est Cr Clr Drug Dosing mL/min Estimated GFR (MDRD) (>60) mL/min BUN/Creatinine Ratio (14-18) Glucose (70-99) mg/dL POC Glucose 155 H 188 H 190 H (70-99) mg/dL Calcium (8.5-10.1) mg/dL Phosphorus (2.6-4.7) mg/dL Magnesium (1.8-2.4) mg/dL Total Bilirubin (0.2-1.0) mg/dL AST (15-37) U/L ALT (16-63) U/L Alkaline Phosphatase (46-116) U/L C-Reactive Protein (<1.0) mg/dL Total Protein (6.4-8.2) g/dl Albumin (3.4-5.0) g/dl Globulin gm/dL Albumin/Globulin Ratio (1-2) Ketones (0.0-0.3) mM 11/01/21 11/01/21 11/01/21 Range/Units 10:59 13:08 13:47 WBC (4.23-9.07) K/mm3 RBC (4.63-6.08) M/mm3 Hgb (13.7-17.5) gm/dl Hct (40.1-51.0) % MCV (79.0-92.2) fl MCH (25.7-32.2) pg MCHC (32.2-35.5) g/dl RDW Std Deviation (35.1-43.9) fL Plt Count (163-337) K/mm3 MPV (9.4-12.3) fl Neut % (Auto) (34.0-67.9) % Lymph % (Auto) (21.8-53.1) % [place] % (Auto) (5.3-12.2) % Eos % (Auto) (0.8-7.0) Baso % (Auto) (0.1-1.2) % Neut # (Auto) (1.78-5.38) K/mm3 Lymph # (Auto) (1.32-3.57) K/mm3 [place] # (Auto) (0.30-0.82) K/mm3 Eos # (Auto) (0.04-0.54) K/mm3 Baso # (Auto) (0.01-0.08) K/mm3 Manual Slide Review VBG pH (7.30-7.40) VBG pCO2 (41-51) mmHg VBG pO2 (40-80) mmHG VBG HCO3 (22-26) meq/L VBG O2 Saturation VBG Base Excess (-4.0-2.0) O2 Delivery Device Sodium (136-145) mEq/L Potassium (3.5-5.1) mEq/L Chloride (98-107) mEq/L Carbon Dioxide (21-32) mEq/L Anion Gap (5-15) BUN (7-18) mg/dL Creatinine (0.7-1.3) mg/dL Est Cr Clr Drug Dosing mL/min Estimated GFR (MDRD) (>60) mL/min BUN/Creatinine Ratio (14-18) Glucose (70-99) mg/dL POC Glucose 236 H 63 L 117 H (70-99) mg/dL Calcium (8.5-10.1) mg/dL Phosphorus (2.6-4.7) mg/dL Magnesium (1.8-2.4) mg/dL Total Bilirubin (0.2-1.0) mg/dL AST (15-37) U/L ALT (16-63) U/L Alkaline Phosphatase (46-116) U/L C-Reactive Protein (<1.0) mg/dL Total Protein (6.4-8.2) g/dl Albumin (3.4-5.0) g/dl Globulin gm/dL Albumin/Globulin Ratio (1-2) Ketones (0.0-0.3) mM Med Orders - Current: Current Medications Acetaminophen (Acetaminophen 325 Mg Tab) 650 mg PO Q4H PRN PRN Reason: Pain (Mild 1-3)/fever Enoxaparin Sodium (Enoxaparin 40 Mg/0.4 Ml Syringe) 40 mg SUBCUT DAILY [facility] Last Admin: 11/01/21 09:32 Dose: 40 mg Documented by: Insulin Human Regular 100 unit (/ Sodium Chloride) 100 mls @ 1.905 mls/hr IV TITRATE [facility]; Protocol Potassium Phosphate 30 mmole/ (Sodium Chloride) 510 mls @ 102 mls/hr IV ASDIRECTED JUAN CARLOS Stop: 11/01/21 16:59 Last Admin: 11/01/21 12:19 Dose: 102 mls/hr Documented by: Insulin Glargine (Insulin Glargine,Hum.Rec.Anlog 100 Unit/Ml 3 Ml Pen) 25 unit SUBCUT DAILY [facility] Last Admin: 11/01/21 09:32 Dose: 25 units Documented by: Insulin Human Lispro (Insulin Lispro 100 Unit/Ml 3 Ml Kwikpen) 0 unit SUBCUT QIDACANDBED [facility]; Protocol Last Admin: 11/01/21 11:01 Dose: 4 units Documented by: Insulin Human Lispro (Insulin Lispro 100 Unit/Ml 3 Ml Kwikpen) 8 unit SUBCUT TIDAC [facility] Last Admin: 11/01/21 11:02 Dose: 8 units Documented by: Ondansetron HCl (Ondansetron 4 Mg/2 Ml Sdv) 4 mg IV Q6H PRN PRN Reason: Nausea/Vomiting Last Admin: 11/01/21 13:16 Dose: 4 mg Documented by: Sodium Chloride (Sodium Chloride 0.9% 10 Ml Syringe) 10 ml FLUSH ASDIRECTED PRN PRN Reason: Keep Vein Open Last Admin: 10/30/21 10:58 Dose: 10 ml Documented by: Sodium Chloride (Sodium Chloride 0.9% 10 Ml Syringe) 30 ml FLUSH ASDIRECTED [facility] Discontinued Medications Dextrose/Water (50% Dextrose In Water 50 Ml Syringe) 25 ml IVPUSH NOW STA Stop: 11/01/21 13:26 Last Admin: 11/01/21 13:29 Dose: 25 ml Documented by: Dextrose/Water (50% Dextrose In Water 50 Ml Syringe) Confirm Administered Dose 50 ml .ROUTE .STK-MED ONE Stop: 11/01/21 13:29 Last Admin: 11/01/21 13:43 Dose: Not Given Documented by: Diphenhydramine HCl (Diphenhydramine 50 Mg/Ml Sdv) 50 mg IVPUSH ASDIRECTED PRN PRN Reason: hypersensitivity reaction Epinephrine HCl (Epinephrine 1 Mg/Ml Sdv) 0.3 mg IM ASDIRECTED PRN PRN Reason: hypersensitivity reaction Famotidine (Famotidine 20 Mg/2 Ml Sdv) 20 mg IVPUSH ASDIRECTED PRN PRN Reason: hypersensitivity reaction Sodium Chloride (Normal Saline) 1,000 mls @ 999 mls/hr IV Q1H [facility] Stop: 10/30/21 11:29 Last Admin: 10/30/21 10:56 Dose: 999 mls/hr Documented by: Insulin Human Regular 100 unit (/ Sodium Chloride) 100 mls @ 1.27 mls/hr IV TITRATE [facility]; Protocol Last Admin: 10/30/21 11:32 Dose: 0.1 units/kg/hr, 6.35 mls/hr Documented by: Sodium Chloride (Normal Saline) 1,000 mls @ 999 mls/hr IV ONETIME ONE Stop: 10/30/21 13:27 Last Admin: 10/30/21 12:34 Dose: 999 mls/hr Documented by: Sodium Chloride (Normal Saline) 1,000 mls @ 999 mls/hr IV ONETIME ONE Stop: 10/30/21 15:06 Last Admin: 10/30/21 14:15 Dose: 999 mls/hr Documented by: Potassium Chloride/Dextrose/Sod Cl (D5 Ns With 20 Meq Kcl) 1,000 mls @ 200 mls/hr IV ASDIRECTED [facility] Last Admin: 10/30/21 21:19 Dose: 200 mls/hr Documented by: Insulin Human Regular 100 unit (/ Sodium Chloride) 100 mls @ 1.27 mls/hr IV TITRATE [facility]; Protocol Last Titration: 11/01/21 11:45 Dose: 0 units/kg/hr, 0 mls/hr Documented by: Bamlanivimab 700 mg/Etesevimab 1,400 mg/ Sodium Chloride 310 mls @ 310 mls/hr IV ONETIME ONE Stop: 10/30/21 17:44 Last Admin: 10/30/21 16:54 Dose: 310 mls/hr Documented by: Magnesium Sulfate 4 gm/ Premix 50 mls @ 12.5 mls/hr IV ONETIME ONE Stop: 10/30/21 23:05 Last Admin: 10/30/21 20:40 Dose: 12.5 mls/hr Documented by: Potassium Chloride/Dextrose/Sod Cl (D5 1/2 Ns W/ 20 Meq/L Kcl) 1,000 mls @ 200 mls/hr IV ASDIRECTED [facility] Last Admin: 11/01/21 06:31 Dose: 200 mls/hr Documented by: Potassium Chloride 10 meq/ (Premix) 100 mls @ 100 mls/hr IV ASDIRECTED ONE Stop: 10/31/21 18:59 Last Admin: 10/31/21 17:53 Dose: 100 mls/hr Documented by: Potassium Chloride 10 meq/ (Premix) 100 mls @ 100 mls/hr IV ASDIRECTED ONE Stop: 10/31/21 19:59 Last Admin: 10/31/21 18:57 Dose: 100 mls/hr Documented by: Potassium Chloride 10 meq/ (Premix) 100 mls @ 100 mls/hr IV ASDIRECTED ONE Stop: 10/31/21 20:59 Last Admin: 10/31/21 19:58 Dose: 100 mls/hr Documented by: Potassium Chloride 10 meq/ (Premix) 100 mls @ 100 mls/hr IV ASDIRECTED ONE Stop: 10/31/21 21:59 Last Admin: 10/31/21 21:01 Dose: 100 mls/hr Documented by: Sodium Phosphate 30 mmole/ (Sodium Chloride) 260 mls @ 86.667 mls/hr IV ONETIME ONE Stop: 10/31/21 21:01 Last Admin: 10/31/21 22:45 Dose: Not Given Documented by: Sodium Phosphate 30 mmole/ (Sodium Chloride) 260 mls @ 86.667 mls/hr IV ONETIME ONE Stop: 11/01/21 10:59 Last Admin: 11/01/21 08:44 Dose: Not Given Documented by: Magnesium Sulfate 4 gm/ Premix 50 mls @ 12.5 mls/hr IV ONETIME ONE Stop: 11/01/21 09:52 Last Admin: 11/01/21 06:32 Dose: 12.5 mls/hr Documented by: Sodium Phosphate 30 mmole/ (Sodium Chloride) 260 mls @ 86.667 mls/hr IV ONETIME ONE Stop: 11/01/21 11:59 Last Admin: 11/01/21 09:07 Dose: 86.667 mls/hr Documented by: Insulin Human Regular (Insulin Regular, Human 100 Units/Ml 3 Ml Vial) 6 unit IV ONETIME ONE Stop: 10/30/21 11:05 Last Admin: 10/30/21 11:23 Dose: 6 unit Documented by: Methylprednisolone Sodium Succinate (Methylprednisolone Sodium Succinate 125 Mg/2 Ml Sdv) 125 mg IVPUSH ASDIRECTED PRN PRN Reason: hypersensitivity reaction Ondansetron HCl (Ondansetron 4 Mg/2 Ml Sdv) 4 mg IVPUSH ONETIME ONE Stop: 10/30/21 10:17 Last Admin: 10/30/21 10:57 Dose: 4 mg Documented by: - Exam Quality Assessment: Supplemental Oxygen General: Alert, Oriented HEENT: Pupils Equal, Mucous Membr. Moist/[place] Neck: Supple Lungs: Clear to Auscultation, Normal Respiratory Effort Cardiovascular: Regular Rate, Regular Rhythm GI/Abdominal Exam: Normal Bowel Sounds, Soft, Non-Tender, No Distention Extremities: Normal Inspection, Normal Range of Motion, Non-Tender, No Pedal Edema, Normal Capillary Refill Skin: Warm, Dry, Intact Psy/Mental Status: Alert, Normal Affect, Normal Mood - Patient Data Lab Results Last 24 hrs: Laboratory Results - last 24 hr 10/31/21 10/31/21 10/31/21 Range/Units 15:15 15:15 15:15 WBC (4.23-9.07) K/mm3 RBC (4.63-6.08) M/mm3 Hgb (13.7-17.5) gm/dl Hct (40.1-51.0) % MCV (79.0-92.2) fl MCH (25.7-32.2) pg MCHC (32.2-35.5) g/dl RDW Std Deviation (35.1-43.9) fL Plt Count (163-337) K/mm3 MPV (9.4-12.3) fl Neut % (Auto) (34.0-67.9) % Lymph % (Auto) (21.8-53.1) % [place] % (Auto) (5.3-12.2) % Eos % (Auto) (0.8-7.0) Baso % (Auto) (0.1-1.2) % Neut # (Auto) (1.78-5.38) K/mm3 Lymph # (Auto) (1.32-3.57) K/mm3 [place] # (Auto) (0.30-0.82) K/mm3 Eos # (Auto) (0.04-0.54) K/mm3 Baso # (Auto) (0.01-0.08) K/mm3 Manual Slide Review VBG pH (7.30-7.40) VBG pCO2 (41-51) mmHg VBG pO2 (40-80) mmHG VBG HCO3 (22-26) meq/L VBG O2 Saturation VBG Base Excess (-4.0-2.0) O2 Delivery Device Sodium 140 (136-145) mEq/L Potassium 3.4 L (3.5-5.1) mEq/L Chloride 106 (98-107) mEq/L Carbon Dioxide 21 (21-32) mEq/L Anion Gap 16.4 H (5-15) BUN 9 (7-18) mg/dL Creatinine 0.8 (0.7-1.3) mg/dL Est Cr Clr Drug Dosing 85.38 mL/min Estimated GFR (MDRD) > 60 (>60) mL/min BUN/Creatinine Ratio 11.3 L (14-18) Glucose 161 H (70-99) mg/dL POC Glucose 165 H (70-99) mg/dL Calcium 7.6 L (8.5-10.1) mg/dL Phosphorus (2.6-4.7) mg/dL Magnesium (1.8-2.4) mg/dL Total Bilirubin (0.2-1.0) mg/dL AST (15-37) U/L ALT (16-63) U/L Alkaline Phosphatase (46-116) U/L C-Reactive Protein (<1.0) mg/dL Total Protein (6.4-8.2) g/dl Albumin (3.4-5.0) g/dl Globulin gm/dL Albumin/Globulin Ratio (1-2) Ketones 16.60 (0.0-0.3) mM 10/31/21 10/31/21 10/31/21 Range/Units 15:59 17:01 18:07 WBC (4.23-9.07) K/mm3 RBC (4.63-6.08) M/mm3 Hgb (13.7-17.5) gm/dl Hct (40.1-51.0) % MCV (79.0-92.2) fl MCH (25.7-32.2) pg MCHC (32.2-35.5) g/dl RDW Std Deviation (35.1-43.9) fL Plt Count (163-337) K/mm3 MPV (9.4-12.3) fl Neut % (Auto) (34.0-67.9) % Lymph % (Auto) (21.8-53.1) % [place] % (Auto) (5.3-12.2) % Eos % (Auto) (0.8-7.0) Baso % (Auto) (0.1-1.2) % Neut # (Auto) (1.78-5.38) K/mm3 Lymph # (Auto) (1.32-3.57) K/mm3 [place] # (Auto) (0.30-0.82) K/mm3 Eos # (Auto) (0.04-0.54) K/mm3 Baso # (Auto) (0.01-0.08) K/mm3 Manual Slide Review VBG pH (7.30-7.40) VBG pCO2 (41-51) mmHg VBG pO2 (40-80) mmHG VBG HCO3 (22-26) meq/L VBG O2 Saturation VBG Base Excess (-4.0-2.0) O2 Delivery Device Sodium (136-145) mEq/L Potassium (3.5-5.1) mEq/L Chloride (98-107) mEq/L Carbon Dioxide (21-32) mEq/L Anion Gap (5-15) BUN (7-18) mg/dL Creatinine (0.7-1.3) mg/dL Est Cr Clr Drug Dosing mL/min Estimated GFR (MDRD) (>60) mL/min BUN/Creatinine Ratio (14-18) Glucose (70-99) mg/dL POC Glucose 146 H 171 H 220 H (70-99) mg/dL Calcium (8.5-10.1) mg/dL Phosphorus (2.6-4.7) mg/dL Magnesium (1.8-2.4) mg/dL Total Bilirubin (0.2-1.0) mg/dL AST (15-37) U/L ALT (16-63) U/L Alkaline Phosphatase (46-116) U/L C-Reactive Protein (<1.0) mg/dL Total Protein (6.4-8.2) g/dl Albumin (3.4-5.0) g/dl Globulin gm/dL Albumin/Globulin Ratio (1-2) Ketones (0.0-0.3) mM 10/31/21 10/31/21 10/31/21 Range/Units 19:00 20:04 21:03 WBC (4.23-9.07) K/mm3 RBC (4.63-6.08) M/mm3 Hgb (13.7-17.5) gm/dl Hct (40.1-51.0) % MCV (79.0-92.2) fl MCH (25.7-32.2) pg MCHC (32.2-35.5) g/dl RDW Std Deviation (35.1-43.9) fL Plt Count (163-337) K/mm3 MPV (9.4-12.3) fl Neut % (Auto) (34.0-67.9) % Lymph % (Auto) (21.8-53.1) % [place] % (Auto) (5.3-12.2) % Eos % (Auto) (0.8-7.0) Baso % (Auto) (0.1-1.2) % Neut # (Auto) (1.78-5.38) K/mm3 Lymph # (Auto) (1.32-3.57) K/mm3 [place] # (Auto) (0.30-0.82) K/mm3 Eos # (Auto) (0.04-0.54) K/mm3 Baso # (Auto) (0.01-0.08) K/mm3 Manual Slide Review VBG pH (7.30-7.40) VBG pCO2 (41-51) mmHg VBG pO2 (40-80) mmHG VBG HCO3 (22-26) meq/L VBG O2 Saturation VBG Base Excess (-4.0-2.0) O2 Delivery Device Sodium (136-145) mEq/L Potassium (3.5-5.1) mEq/L Chloride (98-107) mEq/L Carbon Dioxide (21-32) mEq/L Anion Gap (5-15) BUN (7-18) mg/dL Creatinine (0.7-1.3) mg/dL Est Cr Clr Drug Dosing mL/min Estimated GFR (MDRD) (>60) mL/min BUN/Creatinine Ratio (14-18) Glucose (70-99) mg/dL POC Glucose 197 H 186 H 173 H (70-99) mg/dL Calcium (8.5-10.1) mg/dL Phosphorus (2.6-4.7) mg/dL Magnesium (1.8-2.4) mg/dL Total Bilirubin (0.2-1.0) mg/dL AST (15-37) U/L ALT (16-63) U/L Alkaline Phosphatase (46-116) U/L C-Reactive Protein (<1.0) mg/dL Total Protein (6.4-8.2) g/dl Albumin (3.4-5.0) g/dl Globulin gm/dL Albumin/Globulin Ratio (1-2) Ketones (0.0-0.3) mM 10/31/21 10/31/21 10/31/21 Range/Units 22:02 22:15 22:15 WBC (4.23-9.07) K/mm3 RBC (4.63-6.08) M/mm3 Hgb (13.7-17.5) gm/dl Hct (40.1-51.0) % MCV (79.0-92.2) fl MCH (25.7-32.2) pg MCHC (32.2-35.5) g/dl RDW Std Deviation (35.1-43.9) fL Plt Count (163-337) K/mm3 MPV (9.4-12.3) fl Neut % (Auto) (34.0-67.9) % Lymph % (Auto) (21.8-53.1) % [place] % (Auto) (5.3-12.2) % Eos % (Auto) (0.8-7.0) Baso % (Auto) (0.1-1.2) % Neut # (Auto) (1.78-5.38) K/mm3 Lymph # (Auto) (1.32-3.57) K/mm3 [place] # (Auto) (0.30-0.82) K/mm3 Eos # (Auto) (0.04-0.54) K/mm3 Baso # (Auto) (0.01-0.08) K/mm3 Manual Slide Review VBG pH 7.45 H (7.30-7.40) VBG pCO2 30.4 L (41-51) mmHg VBG pO2 33.0 L (40-80) mmHG VBG HCO3 20.6 L (22-26) meq/L VBG O2 Saturation 71.6 VBG Base Excess -2.0 (-4.0-2.0) O2 Delivery Device Room air Sodium 138 (136-145) mEq/L Potassium 3.5 (3.5-5.1) mEq/L Chloride 103 (98-107) mEq/L Carbon Dioxide 22 (21-32) mEq/L Anion Gap 16.5 H (5-15) BUN 6 L (7-18) mg/dL Creatinine 0.9 (0.7-1.3) mg/dL Est Cr Clr Drug Dosing 75.89 mL/min Estimated GFR (MDRD) > 60 (>60) mL/min BUN/Creatinine Ratio 6.7 L (14-18) Glucose 166 H (70-99) mg/dL POC Glucose 160 H (70-99) mg/dL Calcium 7.8 L (8.5-10.1) mg/dL Phosphorus (2.6-4.7) mg/dL Magnesium 1.5 L (1.8-2.4) mg/dL Total Bilirubin (0.2-1.0) mg/dL AST (15-37) U/L ALT (16-63) U/L Alkaline Phosphatase (46-116) U/L C-Reactive Protein (<1.0) mg/dL Total Protein (6.4-8.2) g/dl Albumin (3.4-5.0) g/dl Globulin gm/dL Albumin/Globulin Ratio (1-2) Ketones (0.0-0.3) mM 10/31/21 11/01/21 11/01/21 Range/Units 23:03 00:02 01:02 WBC (4.23-9.07) K/mm3 RBC (4.63-6.08) M/mm3 Hgb (13.7-17.5) gm/dl Hct (40.1-51.0) % MCV (79.0-92.2) fl MCH (25.7-32.2) pg MCHC (32.2-35.5) g/dl RDW Std Deviation (35.1-43.9) fL Plt Count (163-337) K/mm3 MPV (9.4-12.3) fl Neut % (Auto) (34.0-67.9) % Lymph % (Auto) (21.8-53.1) % [place] % (Auto) (5.3-12.2) % Eos % (Auto) (0.8-7.0) Baso % (Auto) (0.1-1.2) % Neut # (Auto) (1.78-5.38) K/mm3 Lymph # (Auto) (1.32-3.57) K/mm3 [place] # (Auto) (0.30-0.82) K/mm3 Eos # (Auto) (0.04-0.54) K/mm3 Baso # (Auto) (0.01-0.08) K/mm3 Manual Slide Review VBG pH (7.30-7.40) VBG pCO2 (41-51) mmHg VBG pO2 (40-80) mmHG VBG HCO3 (22-26) meq/L VBG O2 Saturation VBG Base Excess (-4.0-2.0) O2 Delivery Device Sodium (136-145) mEq/L Potassium (3.5-5.1) mEq/L Chloride (98-107) mEq/L Carbon Dioxide (21-32) mEq/L Anion Gap (5-15) BUN (7-18) mg/dL Creatinine (0.7-1.3) mg/dL Est Cr Clr Drug Dosing mL/min Estimated GFR (MDRD) (>60) mL/min BUN/Creatinine Ratio (14-18) Glucose (70-99) mg/dL POC Glucose 165 H 172 H 167 H (70-99) mg/dL Calcium (8.5-10.1) mg/dL Phosphorus (2.6-4.7) mg/dL Magnesium (1.8-2.4) mg/dL Total Bilirubin (0.2-1.0) mg/dL AST (15-37) U/L ALT (16-63) U/L Alkaline Phosphatase (46-116) U/L C-Reactive Protein (<1.0) mg/dL Total Protein (6.4-8.2) g/dl Albumin (3.4-5.0) g/dl Globulin gm/dL Albumin/Globulin Ratio (1-2) Ketones (0.0-0.3) mM 11/01/21 11/01/21 11/01/21 Range/Units 02:02 03:05 04:02 WBC (4.23-9.07) K/mm3 RBC (4.63-6.08) M/mm3 Hgb (13.7-17.5) gm/dl Hct (40.1-51.0) % MCV (79.0-92.2) fl MCH (25.7-32.2) pg MCHC (32.2-35.5) g/dl RDW Std Deviation (35.1-43.9) fL Plt Count (163-337) K/mm3 MPV (9.4-12.3) fl Neut % (Auto) (34.0-67.9) % Lymph % (Auto) (21.8-53.1) % [place] % (Auto) (5.3-12.2) % Eos % (Auto) (0.8-7.0) Baso % (Auto) (0.1-1.2) % Neut # (Auto) (1.78-5.38) K/mm3 Lymph # (Auto) (1.32-3.57) K/mm3 [place] # (Auto) (0.30-0.82) K/mm3 Eos # (Auto) (0.04-0.54) K/mm3 Baso # (Auto) (0.01-0.08) K/mm3 Manual Slide Review VBG pH (7.30-7.40) VBG pCO2 (41-51) mmHg VBG pO2 (40-80) mmHG VBG HCO3 (22-26) meq/L VBG O2 Saturation VBG Base Excess (-4.0-2.0) O2 Delivery Device Sodium (136-145) mEq/L Potassium (3.5-5.1) mEq/L Chloride (98-107) mEq/L Carbon Dioxide (21-32) mEq/L Anion Gap (5-15) BUN (7-18) mg/dL Creatinine (0.7-1.3) mg/dL Est Cr Clr Drug Dosing mL/min Estimated GFR (MDRD) (>60) mL/min BUN/Creatinine Ratio (14-18) Glucose (70-99) mg/dL POC Glucose 146 H 142 H 127 H (70-99) mg/dL Calcium (8.5-10.1) mg/dL Phosphorus (2.6-4.7) mg/dL Magnesium (1.8-2.4) mg/dL Total Bilirubin (0.2-1.0) mg/dL AST (15-37) U/L ALT (16-63) U/L Alkaline Phosphatase (46-116) U/L C-Reactive Protein (<1.0) mg/dL Total Protein (6.4-8.2) g/dl Albumin (3.4-5.0) g/dl Globulin gm/dL Albumin/Globulin Ratio (1-2) Ketones (0.0-0.3) mM 11/01/21 11/01/21 11/01/21 Range/Units 04:10 04:10 04:10 WBC 3.25 L (4.23-9.07) K/mm3 RBC 3.76 L (4.63-6.08) M/mm3 Hgb 12.1 L (13.7-17.5) gm/dl Hct 34.3 L (40.1-51.0) % MCV 91.2 (79.0-92.2) fl MCH 32.2 (25.7-32.2) pg MCHC 35.3 (32.2-35.5) g/dl RDW Std Deviation 43.8 (35.1-43.9) fL Plt Count 178 (163-337) K/mm3 MPV 9.5 (9.4-12.3) fl Neut % (Auto) 64.6 (34.0-67.9) % Lymph % (Auto) 14.5 L (21.8-53.1) % [place] % (Auto) 20.9 H (5.3-12.2) % Eos % (Auto) 0 L (0.8-7.0) Baso % (Auto) 0.0 L (0.1-1.2) % Neut # (Auto) 2.10 (1.78-5.38) K/mm3 Lymph # (Auto) 0.47 L (1.32-3.57) K/mm3 [place] # (Auto) 0.68 (0.30-0.82) K/mm3 Eos # (Auto) 0.00 L (0.04-0.54) K/mm3 Baso # (Auto) 0.00 L (0.01-0.08) K/mm3 Manual Slide Review Abnormal smear VBG pH (7.30-7.40) VBG pCO2 (41-51) mmHg VBG pO2 (40-80) mmHG VBG HCO3 (22-26) meq/L VBG O2 Saturation VBG Base Excess (-4.0-2.0) O2 Delivery Device Sodium 137 (136-145) mEq/L Potassium 3.4 L (3.5-5.1) mEq/L Chloride 105 (98-107) mEq/L Carbon Dioxide 22 (21-32) mEq/L Anion Gap 13.4 (5-15) BUN 5 L (7-18) mg/dL Creatinine 0.7 (0.7-1.3) mg/dL Est Cr Clr Drug Dosing 100.38 mL/min Estimated GFR (MDRD) > 60 (>60) mL/min BUN/Creatinine Ratio 7.1 L (14-18) Glucose 122 H (70-99) mg/dL POC Glucose (70-99) mg/dL Calcium 7.1 L (8.5-10.1) mg/dL Phosphorus 0.9 L (2.6-4.7) mg/dL Magnesium 1.3 L (1.8-2.4) mg/dL Total Bilirubin 0.4 (0.2-1.0) mg/dL AST 17 (15-37) U/L ALT 14 L (16-63) U/L Alkaline Phosphatase 62 (46-116) U/L C-Reactive Protein 5.4 H* (<1.0) mg/dL Total Protein 5.1 L (6.4-8.2) g/dl Albumin 2.3 L (3.4-5.0) g/dl Globulin 2.8 gm/dL Albumin/Globulin Ratio 0.8 L (1-2) Ketones 0.12 (0.0-0.3) mM 11/01/21 11/01/21 11/01/21 Range/Units 05:00 06:01 06:58 WBC (4.23-9.07) K/mm3 RBC (4.63-6.08) M/mm3 Hgb (13.7-17.5) gm/dl Hct (40.1-51.0) % MCV (79.0-92.2) fl MCH (25.7-32.2) pg MCHC (32.2-35.5) g/dl RDW Std Deviation (35.1-43.9) fL Plt Count (163-337) K/mm3 MPV (9.4-12.3) fl Neut % (Auto) (34.0-67.9) % Lymph % (Auto) (21.8-53.1) % [place] % (Auto) (5.3-12.2) % Eos % (Auto) (0.8-7.0) Baso % (Auto) (0.1-1.2) % Neut # (Auto) (1.78-5.38) K/mm3 Lymph # (Auto) (1.32-3.57) K/mm3 [place] # (Auto) (0.30-0.82) K/mm3 Eos # (Auto) (0.04-0.54) K/mm3 Baso # (Auto) (0.01-0.08) K/mm3 Manual Slide Review VBG pH (7.30-7.40) VBG pCO2 (41-51) mmHg VBG pO2 (40-80) mmHG VBG HCO3 (22-26) meq/L VBG O2 Saturation VBG Base Excess (-4.0-2.0) O2 Delivery Device Sodium (136-145) mEq/L Potassium (3.5-5.1) mEq/L Chloride (98-107) mEq/L Carbon Dioxide (21-32) mEq/L Anion Gap (5-15) BUN (7-18) mg/dL Creatinine (0.7-1.3) mg/dL Est Cr Clr Drug Dosing mL/min Estimated GFR (MDRD) (>60) mL/min BUN/Creatinine Ratio (14-18) Glucose (70-99) mg/dL POC Glucose 97 107 H 146 H (70-99) mg/dL Calcium (8.5-10.1) mg/dL Phosphorus (2.6-4.7) mg/dL Magnesium (1.8-2.4) mg/dL Total Bilirubin (0.2-1.0) mg/dL AST (15-37) U/L ALT (16-63) U/L Alkaline Phosphatase (46-116) U/L C-Reactive Protein (<1.0) mg/dL Total Protein (6.4-8.2) g/dl Albumin (3.4-5.0) g/dl Globulin gm/dL Albumin/Globulin Ratio (1-2) Ketones (0.0-0.3) mM 11/01/21 11/01/21 11/01/21 Range/Units 08:07 09:03 10:15 WBC (4.23-9.07) K/mm3 RBC (4.63-6.08) M/mm3 Hgb (13.7-17.5) gm/dl Hct (40.1-51.0) % MCV (79.0-92.2) fl MCH (25.7-32.2) pg MCHC (32.2-35.5) g/dl RDW Std Deviation (35.1-43.9) fL Plt Count (163-337) K/mm3 MPV (9.4-12.3) fl Neut % (Auto) (34.0-67.9) % Lymph % (Auto) (21.8-53.1) % [place] % (Auto) (5.3-12.2) % Eos % (Auto) (0.8-7.0) Baso % (Auto) (0.1-1.2) % Neut # (Auto) (1.78-5.38) K/mm3 Lymph # (Auto) (1.32-3.57) K/mm3 [place] # (Auto) (0.30-0.82) K/mm3 Eos # (Auto) (0.04-0.54) K/mm3 Baso # (Auto) (0.01-0.08) K/mm3 Manual Slide Review VBG pH (7.30-7.40) VBG pCO2 (41-51) mmHg VBG pO2 (40-80) mmHG VBG HCO3 (22-26) meq/L VBG O2 Saturation VBG Base Excess (-4.0-2.0) O2 Delivery Device Sodium (136-145) mEq/L Potassium (3.5-5.1) mEq/L Chloride (98-107) mEq/L Carbon Dioxide (21-32) mEq/L Anion Gap (5-15) BUN (7-18) mg/dL Creatinine (0.7-1.3) mg/dL Est Cr Clr Drug Dosing mL/min Estimated GFR (MDRD) (>60) mL/min BUN/Creatinine Ratio (14-18) Glucose (70-99) mg/dL POC Glucose 155 H 188 H 190 H (70-99) mg/dL Calcium (8.5-10.1) mg/dL Phosphorus (2.6-4.7) mg/dL Magnesium (1.8-2.4) mg/dL Total Bilirubin (0.2-1.0) mg/dL AST (15-37) U/L ALT (16-63) U/L Alkaline Phosphatase (46-116) U/L C-Reactive Protein (<1.0) mg/dL Total Protein (6.4-8.2) g/dl Albumin (3.4-5.0) g/dl Globulin gm/dL Albumin/Globulin Ratio (1-2) Ketones (0.0-0.3) mM 11/01/21 11/01/21 11/01/21 Range/Units 10:59 13:08 13:47 WBC (4.23-9.07) K/mm3 RBC (4.63-6.08) M/mm3 Hgb (13.7-17.5) gm/dl Hct (40.1-51.0) % MCV (79.0-92.2) fl MCH (25.7-32.2) pg MCHC (32.2-35.5) g/dl RDW Std Deviation (35.1-43.9) fL Plt Count (163-337) K/mm3 MPV (9.4-12.3) fl Neut % (Auto) (34.0-67.9) % Lymph % (Auto) (21.8-53.1) % [place] % (Auto) (5.3-12.2) % Eos % (Auto) (0.8-7.0) Baso % (Auto) (0.1-1.2) % Neut # (Auto) (1.78-5.38) K/mm3 Lymph # (Auto) (1.32-3.57) K/mm3 [place] # (Auto) (0.30-0.82) K/mm3 Eos # (Auto) (0.04-0.54) K/mm3 Baso # (Auto) (0.01-0.08) K/mm3 Manual Slide Review VBG pH (7.30-7.40) VBG pCO2 (41-51) mmHg VBG pO2 (40-80) mmHG VBG HCO3 (22-26) meq/L VBG O2 Saturation VBG Base Excess (-4.0-2.0) O2 Delivery Device Sodium (136-145) mEq/L Potassium (3.5-5.1) mEq/L Chloride (98-107) mEq/L Carbon Dioxide (21-32) mEq/L Anion Gap (5-15) BUN (7-18) mg/dL Creatinine (0.7-1.3) mg/dL Est Cr Clr Drug Dosing mL/min Estimated GFR (MDRD) (>60) mL/min BUN/Creatinine Ratio (14-18) Glucose (70-99) mg/dL POC Glucose 236 H 63 L 117 H (70-99) mg/dL Calcium (8.5-10.1) mg/dL Phosphorus (2.6-4.7) mg/dL Magnesium (1.8-2.4) mg/dL Total Bilirubin (0.2-1.0) mg/dL AST (15-37) U/L ALT (16-63) U/L Alkaline Phosphatase (46-116) U/L C-Reactive Protein (<1.0) mg/dL Total Protein (6.4-8.2) g/dl Albumin (3.4-5.0) g/dl Globulin gm/dL Albumin/Globulin Ratio (1-2) Ketones (0.0-0.3) mM Result Diagrams: 11/01/21 04:10 11/01/21 04:10 Sepsis Event Note - Evaluation Sepsis Screening Result: No Definite Risk - Focused Exam Vital Signs: Vital Signs Temp Pulse Resp BP BP Pulse Ox 11/01/21 12:21 97.4 F 16 138/74 97 11/01/21 09:05 140/74 98 11/01/21 09:04 97.5 F 104 H 16 140/74 99 11/01/21 09:00 101 H 98 11/01/21 08:00 97 97 11/01/21 07:00 103 H 98 11/01/21 06:00 112 H 96 11/01/21 05:00 104 H 99 11/01/21 04:00 97.8 F 16 91/51 L 97 11/01/21 03:00 97 96 - Problem List & Annotations (1) COVID-19 SNOMED Code(s): 192322164 Code(s): U07.1 - COVID-19 Status: Acute Current Visit: Yes (2) Diabetic ketoacidosis associated with type 2 diabetes mellitus SNOMED Code(s): 587558329, 710372450 Code(s): E11.10 - TYPE 2 DIABETES MELLITUS WITH KETOACIDOSIS WITHOUT COMA Status: Acute Current Visit: Yes (3) Acute renal insufficiency SNOMED Code(s): 060269799 Code(s): N28.9 - DISORDER OF KIDNEY AND URETER, UNSPECIFIED Status: Acute Current Visit: Yes - Problem List Review Problem List Initiated/Reviewed/Updated: Yes - My Orders Last 24 Hours: My Active Orders 11/01/21 Breakfast Consistent Carbohydrate Diet [DIET] 11/01/21 09:15 Insulin Glargine,Hum.Rec.Anlog [Semglee Pen] 25 unit SUBCUT DAILY 11/01/21 09:35 Dietary Supplements [RC] TIDMEALS 11/01/21 11:00 Insulin Lispro [HumaLOG] 8 unit SUBCUT TIDAC Insulin Lispro [HumaLOG] See Protocol SUBCUT QIDACANDBED 11/01/21 12:00 Potassium Phosphates 30 mmole Sodium Chloride 0.9% [Normal Saline] 500 ml IV ASDIRECTED 11/02/21 05:11 C-REACTIVE PROTEIN [CHEM] AM CBC WITH AUTO DIFF [HEME] AM CMP [COMPREHENSIVE METABOLIC PN,CMP] [CHEM] AM MAGNESIUM [CHEM] AM PHOSPHORUS [CHEM] AM 11/03/21 05:11 C-REACTIVE PROTEIN [CHEM] AM CBC WITH AUTO DIFF [HEME] AM CMP [COMPREHENSIVE METABOLIC PN,CMP] [CHEM] AM MAGNESIUM [CHEM] AM PHOSPHORUS [CHEM] AM - Plan Plan:: 61-year-old male with history of diabetes treated on Metformin developed Covid- like symptoms on Tuesday with increasing weakness over the last couple of days with polyuria polydipsia. He received Regeneron monoclonal antibodies in the emergency department. DKA Acute renal insufficiency COVID-19 infection without pneumonia nor hypoxemia * Patient significantly dehydrated with hypovolemia and heart rates in the 120s. Blood pressures good. * Initial blood sugars 483 * Ketones 19.7 * Initial ABG pH 7.15, PCO2 10.2, PO2 103, bicarb 3.6 * ABG improving with treatment of his DKA. Most recent pH is 7.28 * Arrived in the ICU on insulin drip and D5 normal saline with 20 mEq of KCl with blood sugars in the low 200s. * Initial creatinine of 2.1 improving with fluid resuscitation. 10/31/2021 Anion gap is almost closed at 15.6. He continues on D5 and insulin drip. We will continue to follow BMP and ketones and when the anion gap and ketones are normal we will switch over to p.o. intake and subcu insulin. Renal function has returned to normal. He did have a significant drop in hemoglobin which is likely hemodilution. Respiratory status is stable without tachypnea or hypoxemia. 11/01/2021 Patient's anion gap is now 13.4. Ketones are down to 0.12. He has restarted a diabetic diet and on subcu insulin. Initially given Glucophage 25 units once a day and Humalog 8 units with each meal. Patient is having some lower blood sugars then preferable. We will need to decrease insulin to Glucophage 20 units daily and 7 units with each meal and sliding scale insulin. Patient should be ready to discharge tomorrow. Blood pressures are stable at 140/74. She would benefit from starting low-dose angiotensin receptor wayne. Hemoglobin is slightly decreased at 12.1. He did tell nursing that he does have occasional bright red blood per rectum. He did have one case while he was hospitalized. I discussed this with him and explained to him he needed to follow-up with primary care provider and will likely need to get a colonoscopy. Replenish potassium and magnesium. Also phosphorus was down to 0.9 so we will replenish that. We will recheck in the morning. Plan discharge for tomorrow. Patient's oxygen saturations have still been in the mid to upper 90s. He does not seem to have any respiratory compromise secondary to COVID-19. Plan * Admit to ICU * Respiratory and contact isolation secondary to COVID-19 * Glucophage 20 units daily * Humalog 7 units with each meal and cover with sliding scale insulin. * Restart Metformin in the morning. * Continuous pulse ox * No indication for remdesivir or steroids at this time. * CBC, CMP, mag, Phos, CRP in the morning * VTE prophylaxis with Lovenox * CODE STATUS: Full code
[2021-11-02] MEDS ORDERED: Potassium Chloride 20 MEQ Tab.ER PO ONE (07:59)
[2021-11-02] MEDS: Enoxaparin 40 MG/0.4 ML Syringe SUBCUT SCH (08:19)
[2021-11-02] MEDS: Insulin Lispro 100 Unit/ML 3 ML KwikPen SUBCUT SCH ×7 (08:21→21:00)
[2021-11-02] MEDS: Insulin Glargine,Hum.Rec.Anlog 100 UNIT/ML 3 ML Pen SUBCUT SCH (08:32)
[2021-11-02] MEDS ORDERED: Magnesium Oxide 400 MG Tab PO SCH (09:00)
--- NOTE | 2021-11-02 16:18 | PCM.PN ---
- General Info Date of Service: 11/02/21 Admission Dx/Problem (Free Text): Admission Diagnosis/Problem Admission Diagnosis/Problem Ketoacidosis in patient with type 2 diabetes mellitus Subjective Update: Patient is having episodes of diarrhea. Otherwise blood sugars have been well controlled. He is eating poorly and refusing to use or take dietary supplements. Patient was given oral magnesium and potassium. He states that he had diarrhea and significant murphy pain afterward. This did improve after a 2- hour nap. Functional Status: Reports: Pain Controlled - Review of Systems General: Reports: Fatigue HEENT: Reports: No Symptoms Pulmonary: Reports: No Symptoms Cardiovascular: Reports: No Symptoms Musculoskeletal: Reports: No Symptoms - Patient Data Vitals - Most Recent: Last Vital Signs Temp 97.1 F 11/02/21 12:00 Pulse 100 11/02/21 12:00 Resp 18 11/02/21 12:00 BP 104/75 11/02/21 12:00 Pulse Ox 97 11/02/21 12:00 Weight - Most Recent: 137 lb 8 oz I&O - Last 24 Hours: Intake & Output 11/02/21 11/02/21 11/02/21 06:59 14:59 22:59 Intake Total 400 1225 Balance 400 1225 Lab Results Last 24 Hours: Laboratory Results - last 24 hr 11/01/21 11/01/21 11/01/21 Range/Units 16:14 18:09 20:44 WBC (4.23-9.07) K/mm3 RBC (4.63-6.08) M/mm3 Hgb (13.7-17.5) gm/dl Hct (40.1-51.0) % MCV (79.0-92.2) fl MCH (25.7-32.2) pg MCHC (32.2-35.5) g/dl RDW Std Deviation (35.1-43.9) fL Plt Count (163-337) K/mm3 MPV (9.4-12.3) fl Neut % (Auto) (34.0-67.9) % Lymph % (Auto) (21.8-53.1) % [place] % (Auto) (5.3-12.2) % Eos % (Auto) (0.8-7.0) Baso % (Auto) (0.1-1.2) % Neut # (Auto) (1.78-5.38) K/mm3 Lymph # (Auto) (1.32-3.57) K/mm3 [place] # (Auto) (0.30-0.82) K/mm3 Eos # (Auto) (0.04-0.54) K/mm3 Baso # (Auto) (0.01-0.08) K/mm3 Manual Slide Review Sodium (136-145) mEq/L Potassium (3.5-5.1) mEq/L Chloride (98-107) mEq/L Carbon Dioxide (21-32) mEq/L Anion Gap (5-15) BUN (7-18) mg/dL Creatinine (0.7-1.3) mg/dL Est Cr Clr Drug Dosing mL/min Estimated GFR (MDRD) (>60) mL/min BUN/Creatinine Ratio (14-18) Glucose (70-99) mg/dL POC Glucose 95 144 H 190 H (70-99) mg/dL Calcium (8.5-10.1) mg/dL Phosphorus (2.6-4.7) mg/dL Magnesium (1.8-2.4) mg/dL Total Bilirubin (0.2-1.0) mg/dL AST (15-37) U/L ALT (16-63) U/L Alkaline Phosphatase (46-116) U/L C-Reactive Protein (<1.0) mg/dL Total Protein (6.4-8.2) g/dl Albumin (3.4-5.0) g/dl Globulin gm/dL Albumin/Globulin Ratio (1-2) 11/02/21 11/02/21 11/02/21 Range/Units 06:03 06:06 06:06 WBC 2.87 L (4.23-9.07) K/mm3 RBC 4.44 L (4.63-6.08) M/mm3 Hgb 14.3 D (13.7-17.5) gm/dl Hct 40.4 (40.1-51.0) % MCV 91.0 (79.0-92.2) fl MCH 32.2 (25.7-32.2) pg MCHC 35.4 (32.2-35.5) g/dl RDW Std Deviation 44.5 H (35.1-43.9) fL Plt Count 193 (163-337) K/mm3 MPV 9.9 (9.4-12.3) fl Neut % (Auto) 43.6 (34.0-67.9) % Lymph % (Auto) 29.6 (21.8-53.1) % [place] % (Auto) 26.5 H (5.3-12.2) % Eos % (Auto) 0 L (0.8-7.0) Baso % (Auto) 0.3 (0.1-1.2) % Neut # (Auto) 1.25 L (1.78-5.38) K/mm3 Lymph # (Auto) 0.85 L (1.32-3.57) K/mm3 [place] # (Auto) 0.76 (0.30-0.82) K/mm3 Eos # (Auto) 0.00 L (0.04-0.54) K/mm3 Baso # (Auto) 0.01 (0.01-0.08) K/mm3 Manual Slide Review Abnormal smear Sodium 141 (136-145) mEq/L Potassium 3.4 L (3.5-5.1) mEq/L Chloride 104 (98-107) mEq/L Carbon Dioxide 25 (21-32) mEq/L Anion Gap 15.4 H (5-15) BUN 6 L (7-18) mg/dL Creatinine 0.7 (0.7-1.3) mg/dL Est Cr Clr Drug Dosing 96.52 mL/min Estimated GFR (MDRD) > 60 (>60) mL/min BUN/Creatinine Ratio 8.6 L (14-18) Glucose 211 H (70-99) mg/dL POC Glucose 207 H (70-99) mg/dL Calcium 7.9 L (8.5-10.1) mg/dL Phosphorus 2.9 (2.6-4.7) mg/dL Magnesium 1.7 L (1.8-2.4) mg/dL Total Bilirubin 0.8 (0.2-1.0) mg/dL AST 19 (15-37) U/L ALT 20 (16-63) U/L Alkaline Phosphatase 78 (46-116) U/L C-Reactive Protein 7.9 H* (<1.0) mg/dL Total Protein 5.8 L (6.4-8.2) g/dl Albumin 2.5 L (3.4-5.0) g/dl Globulin 3.3 gm/dL Albumin/Globulin Ratio 0.8 L (1-2) 11/02/21 Range/Units 11:53 WBC (4.23-9.07) K/mm3 RBC (4.63-6.08) M/mm3 Hgb (13.7-17.5) gm/dl Hct (40.1-51.0) % MCV (79.0-92.2) fl MCH (25.7-32.2) pg MCHC (32.2-35.5) g/dl RDW Std Deviation (35.1-43.9) fL Plt Count (163-337) K/mm3 MPV (9.4-12.3) fl Neut % (Auto) (34.0-67.9) % Lymph % (Auto) (21.8-53.1) % [place] % (Auto) (5.3-12.2) % Eos % (Auto) (0.8-7.0) Baso % (Auto) (0.1-1.2) % Neut # (Auto) (1.78-5.38) K/mm3 Lymph # (Auto) (1.32-3.57) K/mm3 [place] # (Auto) (0.30-0.82) K/mm3 Eos # (Auto) (0.04-0.54) K/mm3 Baso # (Auto) (0.01-0.08) K/mm3 Manual Slide Review Sodium (136-145) mEq/L Potassium (3.5-5.1) mEq/L Chloride (98-107) mEq/L Carbon Dioxide (21-32) mEq/L Anion Gap (5-15) BUN (7-18) mg/dL Creatinine (0.7-1.3) mg/dL Est Cr Clr Drug Dosing mL/min Estimated GFR (MDRD) (>60) mL/min BUN/Creatinine Ratio (14-18) Glucose (70-99) mg/dL POC Glucose 137 H (70-99) mg/dL Calcium (8.5-10.1) mg/dL Phosphorus (2.6-4.7) mg/dL Magnesium (1.8-2.4) mg/dL Total Bilirubin (0.2-1.0) mg/dL AST (15-37) U/L ALT (16-63) U/L Alkaline Phosphatase (46-116) U/L C-Reactive Protein (<1.0) mg/dL Total Protein (6.4-8.2) g/dl Albumin (3.4-5.0) g/dl Globulin gm/dL Albumin/Globulin Ratio (1-2) Med Orders - Current: Current Medications Acetaminophen (Acetaminophen 325 Mg Tab) 650 mg PO Q4H PRN PRN Reason: Pain (Mild 1-3)/fever Enoxaparin Sodium (Enoxaparin 40 Mg/0.4 Ml Syringe) 40 mg SUBCUT DAILY [facility] Last Admin: 11/02/21 08:19 Dose: 40 mg Documented by: Insulin Glargine (Insulin Glargine,Hum.Rec.Anlog 100 Unit/Ml 3 Ml Pen) 20 unit SUBCUT DAILY [facility] Last Admin: 11/02/21 08:32 Dose: 20 units Documented by: Insulin Human Lispro (Insulin Lispro 100 Unit/Ml 3 Ml Kwikpen) 0 unit SUBCUT QI DACANDBED [facility]; Protocol Last Admin: 11/02/21 11:55 Dose: Not Given Documented by: Insulin Human Lispro (Insulin Lispro 100 Unit/Ml 3 Ml Kwikpen) 7 unit SUBCUT [facility] Last Admin: 11/02/21 13:51 Dose: Not Given Documented by: Ondansetron HCl (Ondansetron 4 Mg/2 Ml Sdv) 4 mg IV Q6H PRN PRN Reason: Nausea/Vomiting Last Admin: 11/01/21 13:16 Dose: 4 mg Documented by: Sodium Chloride (Sodium Chloride 0.9% 10 Ml Syringe) 10 ml FLUSH ASDIRECTED PRN PRN Reason: Keep Vein Open Last Admin: 10/30/21 10:58 Dose: 10 ml Documented by: Sodium Chloride (Sodium Chloride 0.9% 10 Ml Syringe) 30 ml FLUSH ASDIRECTED [facility] Discontinued Medications Dextrose/Water (50% Dextrose In Water 50 Ml Syringe) 25 ml IVPUSH NOW STA Stop: 11/01/21 13:26 Last Admin: 11/01/21 13:29 Dose: 25 ml Documented by: Dextrose/Water (50% Dextrose In Water 50 Ml Syringe) Confirm Administered Dose 50 ml .ROUTE .STK-MED ONE Stop: 11/01/21 13:29 Last Admin: 11/01/21 13:43 Dose: Not Given Documented by: Diphenhydramine HCl (Diphenhydramine 50 Mg/Ml Sdv) 50 mg IVPUSH ASDIRECTED PRN PRN Reason: hypersensitivity reaction Epinephrine HCl (Epinephrine 1 Mg/Ml Sdv) 0.3 mg IM ASDIRECTED PRN PRN Reason: hypersensitivity reaction Famotidine (Famotidine 20 Mg/2 Ml Sdv) 20 mg IVPUSH ASDIRECTED PRN PRN Reason: hypersensitivity reaction Sodium Chloride (Normal Saline) 1,000 mls @ 999 mls/hr IV Q1H [facility] Stop: 10/30/21 11:29 Last Admin: 10/30/21 10:56 Dose: 999 mls/hr Documented by: Insulin Human Regular 100 unit (/ Sodium Chloride) 100 mls @ 1.27 mls/hr IV TITRATE [facility]; Protocol Last Admin: 10/30/21 11:32 Dose: 0.1 units/kg/hr, 6.35 mls/hr Documented by: Sodium Chloride (Normal Saline) 1,000 mls @ 999 mls/hr IV ONETIME ONE Stop: 10/30/21 13:27 Last Admin: 10/30/21 12:34 Dose: 999 mls/hr Documented by: Sodium Chloride (Normal Saline) 1,000 mls @ 999 mls/hr IV ONETIME ONE Stop: 10/30/21 15:06 Last Admin: 10/30/21 14:15 Dose: 999 mls/hr Documented by: Potassium Chloride/Dextrose/Sod Cl (D5 Ns With 20 Meq Kcl) 1,000 mls @ 200 mls/hr IV ASDIRECTED [facility] CARLOS Last Admin: 10/30/21 21:19 Dose: 200 mls/hr Documented by: Insulin Human Regular 100 unit (/ Sodium Chloride) 100 mls @ 1.27 mls/hr IV TITRATE [facility] CARL[facility]; Protocol Last Titration: 11/01/21 11:45 Dose: 0 units/kg/hr, 0 mls/hr Documented by: Bamlanivimab 700 mg/Etesevimab 1,400 mg/ Sodium Chloride 310 mls @ 310 mls/hr IV ONETIME ONE Stop: 10/30/21 17:44 Last Admin: 10/30/21 16:54 Dose: 310 mls/hr Documented by: Insulin Human Regular 100 unit (/ Sodium Chloride) 100 mls @ 1.905 mls/hr IV TITRATE [facility] CARLOS; Protocol Magnesium Sulfate 4 gm/ Premix 50 mls @ 12.5 mls/hr IV ONETIME ONE Stop: 10/30/21 23:05 Last Admin: 10/30/21 20:40 Dose: 12.5 mls/hr Documented by: Potassium Chloride/Dextrose/Sod Cl (D5 1/2 Ns W/ 20 Meq/L Kcl) 1,000 mls @ 200 mls/hr IV ASDIRECTED [facility] CARLOS Last Admin: 11/01/21 06:31 Dose: 200 mls/hr Documented by: Potassium Chloride 10 meq/ (Premix) 100 mls @ 100 mls/hr IV ASDIRECTED ONE Stop: 10/31/21 18:59 Last Admin: 10/31/21 17:53 Dose: 100 mls/hr Documented by: Potassium Chloride 10 meq/ (Premix) 100 mls @ 100 mls/hr IV ASDIRECTED ONE Stop: 10/31/21 19:59 Last Admin: 10/31/21 18:57 Dose: 100 mls/hr Documented by: Potassium Chloride 10 meq/ (Premix) 100 mls @ 100 mls/hr IV ASDIRECTED ONE Stop: 10/31/21 20:59 Last Admin: 10/31/21 19:58 Dose: 100 mls/hr Documented by: Potassium Chloride 10 meq/ (Premix) 100 mls @ 100 mls/hr IV ASDIRECTED ONE Stop: 10/31/21 21:59 Last Admin: 10/31/21 21:01 Dose: 100 mls/hr Documented by: Sodium Phosphate 30 mmole/ (Sodium Chloride) 260 mls @ 86.667 mls/hr IV ONETIME ONE Stop: 10/31/21 21:01 Last Admin: 10/31/21 22:45 Dose: Not Given Documented by: Sodium Phosphate 30 mmole/ (Sodium Chloride) 260 mls @ 86.667 mls/hr IV ONETIME ONE Stop: 11/01/21 10:59 Last Admin: 11/01/21 08:44 Dose: Not Given Documented by: Magnesium Sulfate 4 gm/ Premix 50 mls @ 12.5 mls/hr IV ONETIME ONE Stop: 11/01/21 09:52 Last Admin: 11/01/21 06:32 Dose: 12.5 mls/hr Documented by: Sodium Phosphate 30 mmole/ (Sodium Chloride) 260 mls @ 86.667 mls/hr IV ONETIME ONE Stop: 11/01/21 11:59 Last Admin: 11/01/21 09:07 Dose: 86.667 mls/hr Documented by: Potassium Phosphate 30 mmole/ (Sodium Chloride) 510 mls @ 102 mls/hr IV ASDIRECTED [facility] Stop: 11/01/21 16:59 Last Admin: 11/01/21 12:19 Dose: 102 mls/hr Documented by: Insulin Glargine (Insulin Glargine,Hum.Rec.Anlog 100 Unit/Ml 3 Ml Pen) 25 unit SUBCUT DAILY [facility] Last Admin: 11/01/21 09:32 Dose: 25 units Documented by: Insulin Human Lispro (Insulin Lispro 100 Unit/Ml 3 Ml Kwikpen) 8 unit SUBCUT TIDAC [facility] Last Admin: 11/01/21 18:45 Dose: Not Given Documented by: Insulin Human Regular (Insulin Regular, Human 100 Units/Ml 3 Ml Vial) 6 unit IV ONETIME ONE Stop: 10/30/21 11:05 Last Admin: 10/30/21 11:23 Dose: 6 unit Documented by: Magnesium Oxide (Magnesium Oxide 400 Mg Tab) 400 mg PO BID [facility] Last Admin: 11/02/21 08:19 Dose: 400 mg Documented by: Methylprednisolone Sodium Succinate (Methylprednisolone Sodium Succinate 125 Mg/2 Ml Sdv) 125 mg IVPUSH ASDIRECTED PRN PRN Reason: hypersensitivity reaction Ondansetron HCl (Ondansetron 4 Mg/2 Ml Sdv) 4 mg IVPUSH ONETIME ONE Stop: 10/30/21 10:17 Last Admin: 10/30/21 10:57 Dose: 4 mg Documented by: Potassium Chloride (Potassium Chloride 20 Meq Tab.Er) 40 meq PO ONETIME ONE Stop: 11/02/21 08:00 Last Admin: 11/02/21 08:45 Dose: 40 meq Documented by: - Exam Quality Assessment: No: Supplemental Oxygen General: Alert, Oriented HEENT: Pupils Equal, Mucous Membr. Moist/[place] Neck: Supple Lungs: Clear to Auscultation, Normal Respiratory Effort Cardiovascular: Regular Rate, Regular Rhythm GI/Abdominal Exam: Normal Bowel Sounds, Soft, Non-Tender Extremities: Normal Inspection, Normal Range of Motion, Non-Tender, No Pedal Edema, Normal Capillary Refill - Patient Data Lab Results Last 24 hrs: Laboratory Results - last 24 hr 11/01/21 11/01/21 11/01/21 Range/Units 16:14 18:09 20:44 WBC (4.23-9.07) K/mm3 RBC (4.63-6.08) M/mm3 Hgb (13.7-17.5) gm/dl Hct (40.1-51.0) % MCV (79.0-92.2) fl MCH (25.7-32.2) pg MCHC (32.2-35.5) g/dl RDW Std Deviation (35.1-43.9) fL Plt Count (163-337) K/mm3 MPV (9.4-12.3) fl Neut % (Auto) (34.0-67.9) % Lymph % (Auto) (21.8-53.1) % [place] % (Auto) (5.3-12.2) % Eos % (Auto) (0.8-7.0) Baso % (Auto) (0.1-1.2) % Neut # (Auto) (1.78-5.38) K/mm3 Lymph # (Auto) (1.32-3.57) K/mm3 [place] # (Auto) (0.30-0.82) K/mm3 Eos # (Auto) (0.04-0.54) K/mm3 Baso # (Auto) (0.01-0.08) K/mm3 Manual Slide Review Sodium (136-145) mEq/L Potassium (3.5-5.1) mEq/L Chloride (98-107) mEq/L Carbon Dioxide (21-32) mEq/L Anion Gap (5-15) BUN (7-18) mg/dL Creatinine (0.7-1.3) mg/dL Est Cr Clr Drug Dosing mL/min Estimated GFR (MDRD) (>60) mL/min BUN/Creatinine Ratio (14-18) Glucose (70-99) mg/dL POC Glucose 95 144 H 190 H (70-99) mg/dL Calcium (8.5-10.1) mg/dL Phosphorus (2.6-4.7) mg/dL Magnesium (1.8-2.4) mg/dL Total Bilirubin (0.2-1.0) mg/dL AST (15-37) U/L ALT (16-63) U/L Alkaline Phosphatase (46-116) U/L C-Reactive Protein (<1.0) mg/dL Total Protein (6.4-8.2) g/dl Albumin (3.4-5.0) g/dl Globulin gm/dL Albumin/Globulin Ratio (1-2) 11/02/21 11/02/21 11/02/21 Range/Units 06:03 06:06 06:06 WBC 2.87 L (4.23-9.07) K/mm3 RBC 4.44 L (4.63-6.08) M/mm3 Hgb 14.3 D (13.7-17.5) gm/dl Hct 40.4 (40.1-51.0) % MCV 91.0 (79.0-92.2) fl MCH 32.2 (25.7-32.2) pg MCHC 35.4 (32.2-35.5) g/dl RDW Std Deviation 44.5 H (35.1-43.9) fL Plt Count 193 (163-337) K/mm3 MPV 9.9 (9.4-12.3) fl Neut % (Auto) 43.6 (34.0-67.9) % Lymph % (Auto) 29.6 (21.8-53.1) % Canadian % (Auto) 26.5 H (5.3-12.2) % Eos % (Auto) 0 L (0.8-7.0) Baso % (Auto) 0.3 (0.1-1.2) % Neut # (Auto) 1.25 L (1.78-5.38) K/mm3 Lymph # (Auto) 0.85 L (1.32-3.57) K/mm3 [place] # (Auto) 0.76 (0.30-0.82) K/mm3 Eos # (Auto) 0.00 L (0.04-0.54) K/mm3 Baso # (Auto) 0.01 (0.01-0.08) K/mm3 Manual Slide Review Abnormal smear Sodium 141 (136-145) mEq/L Potassium 3.4 L (3.5-5.1) mEq/L Chloride 104 (98-107) mEq/L Carbon Dioxide 25 (21-32) mEq/L Anion Gap 15.4 H (5-15) BUN 6 L (7-18) mg/dL Creatinine 0.7 (0.7-1.3) mg/dL Est Cr Clr Drug Dosing 96.52 mL/min Estimated GFR (MDRD) > 60 (>60) mL/min BUN/Creatinine Ratio 8.6 L (14-18) Glucose 211 H (70-99) mg/dL POC Glucose 207 H (70-99) mg/dL Calcium 7.9 L (8.5-10.1) mg/dL Phosphorus 2.9 (2.6-4.7) mg/dL Magnesium 1.7 L (1.8-2.4) mg/dL Total Bilirubin 0.8 (0.2-1.0) mg/dL AST 19 (15-37) U/L ALT 20 (16-63) U/L Alkaline Phosphatase 78 (46-116) U/L C-Reactive Protein 7.9 H* (<1.0) mg/dL Total Protein 5.8 L (6.4-8.2) g/dl Albumin 2.5 L (3.4-5.0) g/dl Globulin 3.3 gm/dL Albumin/Globulin Ratio 0.8 L (1-2) 11/02/21 Range/Units 11:53 WBC (4.23-9.07) K/mm3 RBC (4.63-6.08) M/mm3 Hgb (13.7-17.5) gm/dl Hct (40.1-51.0) % MCV (79.0-92.2) fl MCH (25.7-32.2) pg MCHC (32.2-35.5) g/dl RDW Std Deviation (35.1-43.9) fL Plt Count (163-337) K/mm3 MPV (9.4-12.3) fl Neut % (Auto) (34.0-67.9) % Lymph % (Auto) (21.8-53.1) % [place] % (Auto) (5.3-12.2) % Eos % (Auto) (0.8-7.0) Baso % (Auto) (0.1-1.2) % Neut # (Auto) (1.78-5.38) K/mm3 Lymph # (Auto) (1.32-3.57) K/mm3 [place] # (Auto) (0.30-0.82) K/mm3 Eos # (Auto) (0.04-0.54) K/mm3 Baso # (Auto) (0.01-0.08) K/mm3 Manual Slide Review Sodium (136-145) mEq/L Potassium (3.5-5.1) mEq/L Chloride (98-107) mEq/L Carbon Dioxide (21-32) mEq/L Anion Gap (5-15) BUN (7-18) mg/dL Creatinine (0.7-1.3) mg/dL Est Cr Clr Drug Dosing mL/min Estimated GFR (MDRD) (>60) mL/min BUN/Creatinine Ratio (14-18) Glucose (70-99) mg/dL POC Glucose 137 H (70-99) mg/dL Calcium (8.5-10.1) mg/dL Phosphorus (2.6-4.7) mg/dL Magnesium (1.8-2.4) mg/dL Total Bilirubin (0.2-1.0) mg/dL AST (15-37) U/L ALT (16-63) U/L Alkaline Phosphatase (46-116) U/L C-Reactive Protein (<1.0) mg/dL Total Protein (6.4-8.2) g/dl Albumin (3.4-5.0) g/dl Globulin gm/dL Albumin/Globulin Ratio (1-2) Result Diagrams: 11/02/21 06:06 11/02/21 06:06 Sepsis Event Note - Evaluation Sepsis Screening Result: Sepsis Risk - Focused Exam Vital Signs: Vital Signs Temp Pulse Resp BP Pulse Ox 11/02/21 12:00 97.1 F 100 18 104/75 97 11/02/21 08:00 98.3 F 114 H 16 121/80 99 11/02/21 06:04 96 11/02/21 05:00 93 L - Problem List & Annotations (1) COVID-19 SNOMED Code(s): 638838209 Code(s): U07.1 - COVID-19 Status: Acute Current Visit: Yes (2) Diabetic ketoacidosis associated with type 2 diabetes mellitus SNOMED Code(s): 619622486, 231179964 Code(s): E11.10 - TYPE 2 DIABETES MELLITUS WITH KETOACIDOSIS WITHOUT COMA Status: Acute Current Visit: Yes (3) Acute renal insufficiency SNOMED Code(s): 028944599 Code(s): N28.9 - DISORDER OF KIDNEY AND URETER, UNSPECIFIED Status: Acute Current Visit: Yes - Problem List Review Problem List Initiated/Reviewed/Updated: Yes - My Orders Last 24 Hours: My Active Orders 11/01/21 19:00 Insulin Lispro [HumaLOG] 7 unit SUBCUT TIDPC 11/01/21 19:07 POC Glucose [Blood Glucose Check, Bedside] [RC] QIDACANDBED 11/02/21 09:00 Insulin Glargine,Hum.Rec.Anlog [Semglee Pen] 20 unit SUBCUT DAILY 11/02/21 09:48 Admission Status [Patient Status] [ADT] Routine 11/03/21 05:11 C-REACTIVE PROTEIN [CHEM] AM CBC WITH AUTO DIFF [HEME] AM CMP [COMPREHENSIVE METABOLIC PN,CMP] [CHEM] AM MAGNESIUM [CHEM] AM PHOSPHORUS [CHEM] AM - Plan Plan:: 61-year-old male with history of diabetes treated on Metformin developed Covid- like symptoms on Tuesday with increasing weakness over the last couple of days with polyuria polydipsia. He received Regeneron monoclonal antibodies in the emergency department. DKA Acute renal insufficiency COVID-19 infection without pneumonia nor hypoxemia * Patient significantly dehydrated with hypovolemia and heart rates in the 120s. Blood pressures good. * Initial blood sugars 483 * Ketones 19.7 * Initial ABG pH 7.15, PCO2 10.2, PO2 103, bicarb 3.6 * ABG improving with treatment of his DKA. Most recent pH is 7.28 * Arrived in the ICU on insulin drip and D5 normal saline with 20 mEq of KCl with blood sugars in the low 200s. * Initial creatinine of 2.1 improving with fluid resuscitation. 10/31/2021 Anion gap is almost closed at 15.6. He continues on D5 and insulin drip. We will continue to follow BMP and ketones and when the anion gap and ketones are normal we will switch over to p.o. intake and subcu insulin. Renal function has returned to normal. He did have a significant drop in hemoglobin which is likely hemodilution. Respiratory status is stable without tachypnea or hypoxemia. 11/01/2021 Patient's anion gap is now 13.4. Ketones are down to 0.12. He has restarted a diabetic diet and on subcu insulin. Initially given Glucophage 25 units once a day and Humalog 8 units with each meal. Patient is having some lower blood sugars then preferable. We will need to decrease insulin to Glucophage 20 units daily and 7 units with each meal and sliding scale insulin. Patient should be ready to discharge tomorrow. Blood pressures are stable at 140/74. She would benefit from starting low-dose angiotensin receptor wayne. Hemoglobin is slightly decreased at 12.1. He did tell nursing that he does have occasional bright red blood per rectum. He did have one case while he was hospitalized. I discussed this with him and explained to him he needed to follow-up with primary care provider and will likely need to get a colonoscopy. Replenish potassium and magnesium. Also phosphorus was down to 0.9 so we will replenish that. We will recheck in the morning. Plan discharge for tomorrow. Patient's oxygen saturations have still been in the mid to upper 90s. He does not seem to have any respiratory compromise secondary to COVID-19. 11/02/2021 Patient had a uneventful night. Unfortunately, he has a poor oral intake and blood sugars have been more erratic. He is currently on Lantus 20 units daily with Humalog 7 units with each meal if he eats 70% or more. He is also on sliding scale. I did not restart his Metformin because he did have an episode of abdominal pain after taking magnesium and potassium. Plan will be to restart it tomorrow and then send him home. Oxygen saturations continued to be in the upper 90s. Patient needs more motivation. Plan discharge in the morning. Plan * Transfer to [facility] status * Given oral potassium and magnesium. Unfortunate cause abdominal discomfort. That resolved after a 2-hour nap. * Respiratory and contact isolation secondary to COVID-19 * Lantus 20 units daily * Humalog 7 units with each meal and cover with sliding scale insulin. * Restart Metformin in the morning. * Continuous pulse ox * No indication for remdesivir or steroids at this time. * CBC, CMP, mag, Phos, CRP in the morning * VTE prophylaxis with Lovenox * CODE STATUS: Full code
[2021-11-02] MEDS ORDERED: Sodium Chloride 0.9% 150 ML Bag IV ONE (17:00)
[2021-11-02] MEDS ORDERED: Sodium Chloride 0.9% 500 ML IV ONE (17:00)
[2021-11-03] MEDS ORDERED: Insulin Glargine,Human Rec. Analog 100 Units/ML 3 ML Pen SUBCUT SCH
[2021-11-03] MEDS ORDERED: Insulin Lispro 100 Unit/ML 3 ML KwikPen SUBCUT SCH
[2021-11-03] MEDS: Insulin Lispro 100 Unit/ML 3 ML KwikPen SUBCUT SCH ×4 (07:10→14:34)
[2021-11-03] MEDS ORDERED: metFORMIN 500 MG Tab PO SCH (08:00)
[2021-11-03] MEDS ORDERED: Magnesium Sulfate/Water 4 GM in Premix Bag 1 BAG IV ONE ×2 (08:30→11:45)
--- NOTE | 2021-11-03 09:49 | PCM.DCSUM1 ---
Discharge Summary - Hospital Course HPI Initial Comments: History of Present Illness Initial Comments - Free Text/Narative: 61-year-old male with diabetes started feeling ill on Tuesday. Patient states that he stopped his Metformin and then by Tuesday he was feeling much worse. On Tuesday he was nauseated and vomiting and had very little to eat. He was thirsty though. He also states he was urinating more frequently. Symptoms worsened over the last 24 hours and he became very weak. He has had some back pain associated starting on Tuesday. When patient came to the emergency department nursing reports a fruity smell. His blood sugars were elevated at 483 but his ketones were 19.7. Bicarb was 9. Patient was given fluid boluses and insulin and started on insulin drip. Initially there were no beds available in our ICU so diabetic DKA protocol was started in the emergency department. He had a quick improvement in his blood sugars into the 100s and was started on D5 normal saline with 20 mEq of KCl. Patient is transferred to the ICU on an insulin drip, D5 normal saline with 20 mEq of KCl. Initial pH was 7.15 and most recent was 7.28. Bicarb has increased to 9 and anion gap is still elevated at 31. Magnesium in the emergency department was 1.6 and they gave him 4 g IV. Patient was positive for Covid. Chest x-ray showed nothing acute. He was given monoclonal antibodies in the emergency department. He is on room air with oxygen saturations in the upper 90s. He has a minimal cough. Assessment/Plan Comment:: 61-year-old male with history of diabetes treated on Metformin developed Covid- like symptoms on Tuesday with increasing weakness over the last couple of days with polyuria polydipsia. He received Regeneron monoclonal antibodies in the emergency department. DKA Acute renal insufficiency COVID-19 infection without pneumonia nor hypoxemia * Patient significantly dehydrated with hypovolemia and heart rates in the 120s. Blood pressures good. * Initial blood sugars 483 * Ketones 19.7 * Initial ABG pH 7.15, PCO2 10.2, PO2 103, bicarb 3.6 * ABG improving with treatment of his DKA. Most recent pH is 7.28 * Arrived in the ICU on insulin drip and D5 normal saline with 20 mEq of KCl with blood sugars in the low 200s. * Initial creatinine of 2.1 improving with fluid resuscitation. Plan * Admit to ICU * Respiratory and contact isolation secondary to COVID-19 * Continue DKA protocol * When anion gap, ketones, and acidosis corrects switch to subcu insulin * Continuous pulse ox * Check BMP and mag every 4 hours initially * Venous pH as needed * CBC, CMP, CRP, mag, Phos, TSH, hemoglobin A1c in the morning * VTE prophylaxis with Lovenox * CODE STATUS: Full code - Mortality Measure Prognosis:: Good Diagnosis: Stroke: No - Discharge Data Discharge Date: 11/03/21 Discharge Disposition: Home, Self-Care 01 Condition: Good - Referral to Home Health Primary Care Physician: PCP None - Discharge Diagnosis/Problem(s) (1) COVID-19 SNOMED Code(s): 927164972 ICD Code: U07.1 - COVID-19 Status: Acute Current Visit: Yes (2) Diabetic ketoacidosis associated with type 2 diabetes mellitus SNOMED Code(s): 225737908, 699224349 ICD Code: E11.10 - TYPE 2 DIABETES MELLITUS WITH KETOACIDOSIS WITHOUT COMA Status: Acute Current Visit: Yes (3) Acute renal insufficiency SNOMED Code(s): 863274604 ICD Code: N28.9 - DISORDER OF KIDNEY AND URETER, UNSPECIFIED Status: Acute Current Visit: Yes - Patient Summary/Data Hospital Course: 10/31/2021 Anion gap is almost closed at 15.6. He continues on D5 and insulin drip. We will continue to follow BMP and ketones and when the anion gap and ketones are normal we will switch over to p.o. intake and subcu insulin. Renal function has returned to normal. He did have a significant drop in hemoglobin which is likely hemodilution. Respiratory status is stable without tachypnea or hypoxemia. 11/01/2021 Patient's anion gap is now 13.4. Ketones are down to 0.12. He has restarted a diabetic diet and on subcu insulin. Initially given Glucophage 25 units once a day and Humalog 8 units with each meal. Patient is having some lower blood sugars then preferable. We will need to decrease insulin to Glucophage 20 units daily and 7 units with each meal and sliding scale insulin. Patient should be ready to discharge tomorrow. Blood pressures are stable at 140/74. She would benefit from starting low-dose angiotensin receptor wayne. Hemoglobin is slightly decreased at 12.1. He did tell nursing that he does have occasional bright red blood per rectum. He did have one case while he was hospitalized. I discussed this with him and explained to him he needed to follow-up with primary care provider and will likely need to get a colonoscopy. Replenish potassium a nd magnesium. Also phosphorus was down to 0.9 so we will replenish that. We will recheck in the morning. Plan discharge for tomorrow. Patient's oxygen saturations have still been in the mid to upper 90s. He does not seem to have any respiratory compromise secondary to COVID-19. 11/02/2021 Patient had a uneventful night. Unfortunately, he has a poor oral intake and b lood sugars have been more erratic. He is currently on Lantus 20 units daily with Humalog 7 units with each meal if he eats 70% or more. He is also on sliding scale. I did not restart his Metformin because he did have an episode of abdominal pain after taking magnesium and potassium. Plan will be to restart it tomorrow and then send him home. Oxygen saturations continued to be in the upper 90s. Patient needs more motivation. Plan discharge in the morning. 11/03/2021 Blood sugars have been well controlled. This morning his blood sugar is 149. He is currently on Lantus 20 units daily and Humalog 7 units with each meal. His diet still continues to be poor, but it should improve as he is discharged. He states he is feeling much better than he was yesterday. He still has some upset stomach so we are holding his Metformin this morning. - Patient Instructions Diet: Diabetic Diet Activity: As Tolerated Driving: May Drive Today Showering/Bathing: May Shower Notify Provider of: Fever, Nausea and/or Vomiting Other/Special Instructions: Follow up with family living educator and PCP in one week. Please check your blood sugars at least 2 times a day and make record of them for your providers. - Discharge Plan *PRESCRIPTION DRUG MONITORING PROGRAM REVIEWED*: No *COPY OF PRESCRIPTION DRUG MONITORING REPORT IN PATIENT BALJINDER: No Prescriptions/Med Rec: Insulin Lispro [Humalog] 7 unit SUBCUT TIDPC #1 pen Insulin Glargine,Hum.Rec.Anlog [Lantus Solostar] 20 unit SQ DAILY #1 insuln.pen Home Medications: Home Meds metFORMIN [Glucophage XR] 1,000 mg PO DAILY 10/31/21 [History] Insulin Glargine,Hum.Rec.Anlog [Lantus Solostar] 20 unit SQ DAILY #1 insuln.pen 11/03/21 [Rx] Insulin Lispro [Humalog] 7 unit SUBCUT TIDPC #1 pen 11/03/21 [Rx] metFORMIN [Glucophage] 500 mg PO QAM tablet 11/03/21 [Rx] Oxygen Therapy Mode: Room Air Patient Handouts: COVID-19, 10 Things You Can Do to Manage Your COVID-19 Symptoms at Home - [facility] (06/12/2021), Sepsis, Diagnosis, Adult, Preventing Diabetic Ketoacidosis Forms: ED Department Discharge Referrals: Suhail Godinez NP [Nurse Practitioner] - 11/12/21 8:40 am (This is the check in time for your appointment.) - Discharge Summary/Plan Comment DC Time >30 min.: Yes Total # of Minutes for Discharge Time: 40 minutes Total time spent includes seeing the patient, doing discharge paperwork, and arranging care. - General Info Date of Service: 11/03/21 Admission Dx/Problem (Free Text: Admission Diagnosis/Problem Admission Diagnosis/Problem Ketoacidosis in patient with type 2 diabetes mellitus Subjective Update: Patient denies any abdominal pain this morning. Appetite is improving. Functional Status: Reports: Pain Controlled - Review of Systems General: Reports: No Symptoms HEENT: Reports: No Symptoms Pulmonary: Reports: No Symptoms Cardiovascular: Reports: No Symptoms Gastrointestinal: Reports: No Symptoms Musculoskeletal: Reports: No Symptoms - Patient Data Vitals - Most Recent: Last Vital Signs Temp 97.5 F 11/03/21 04:00 Pulse 102 H 11/03/21 04:00 Resp 18 11/03/21 04:00 BP 89/66 L 11/03/21 04:00 Pulse Ox 97 11/03/21 04:00 Weight - Most Recent: 136 lb 6.4 oz I&O - Last 24 hours: Intake & Output 11/02/21 11/03/21 11/03/21 22:59 06:59 14:59 Intake Total 985 25 Balance 985 25 Lab Results - Last 24 hrs: Laboratory Results - last 24 hr 11/02/21 11/02/21 11/02/21 Range/Units 11:53 16:17 19:55 WBC (4.23-9.07) K/mm3 RBC (4.63-6.08) M/mm3 Hgb (13.7-17.5) gm/dl Hct (40.1-51.0) % MCV (79.0-92.2) fl MCH (25.7-32.2) pg MCHC (32.2-35.5) g/dl RDW Std Deviation (35.1-43.9) fL Plt Count (163-337) K/mm3 MPV (9.4-12.3) fl Neut % (Auto) (34.0-67.9) % Lymph % (Auto) (21.8-53.1) % Leake % (Auto) (5.3-12.2) % Eos % (Auto) (0.8-7.0) Baso % (Auto) (0.1-1.2) % Neut # (Auto) (1.78-5.38) K/mm3 Lymph # (Auto) (1.32-3.57) K/mm3 Leake # (Auto) (0.30-0.82) K/mm3 Eos # (Auto) (0.04-0.54) K/mm3 Baso # (Auto) (0.01-0.08) K/mm3 Sodium (136-145) mEq/L Potassium (3.5-5.1) mEq/L Chloride (98-107) mEq/L Carbon Dioxide (21-32) mEq/L Anion Gap (5-15) BUN (7-18) mg/dL Creatinine (0.7-1.3) mg/dL Est Cr Clr Drug Dosing mL/min Estimated GFR (MDRD) (>60) mL/min BUN/Creatinine Ratio (14-18) Glucose (70-99) mg/dL POC Glucose 137 H 120 H 155 H (70-99) mg/dL Calcium (8.5-10.1) mg/dL Phosphorus (2.6-4.7) mg/dL Magnesium (1.8-2.4) mg/dL Total Bilirubin (0.2-1.0) mg/dL AST (15-37) U/L ALT (16-63) U/L Alkaline Phosphatase (46-116) U/L C-Reactive Protein (<1.0) mg/dL Total Protein (6.4-8.2) g/dl Albumin (3.4-5.0) g/dl Globulin gm/dL Albumin/Globulin Ratio (1-2) 11/03/21 11/03/21 11/03/21 Range/Units 05:05 06:48 06:48 WBC 3.17 L (4.23-9.07) K/mm3 RBC 4.07 L (4.63-6.08) M/mm3 Hgb 13.2 L (13.7-17.5) gm/dl Hct 37.6 L (40.1-51.0) % MCV 92.4 H (79.0-92.2) fl MCH 32.4 H (25.7-32.2) pg MCHC 35.1 (32.2-35.5) g/dl RDW Std Deviation 44.1 H (35.1-43.9) fL Plt Count 205 (163-337) K/mm3 MPV 9.9 (9.4-12.3) fl Neut % (Auto) 48.3 (34.0-67.9) % Lymph % (Auto) 30.9 (21.8-53.1) % Leake % (Auto) 19.6 H (5.3-12.2) % Eos % (Auto) 0.3 L (0.8-7.0) Baso % (Auto) 0.6 (0.1-1.2) % Neut # (Auto) 1.53 L (1.78-5.38) K/mm3 Lymph # (Auto) 0.98 L (1.32-3.57) K/mm3 Leake # (Auto) 0.62 (0.30-0.82) K/mm3 Eos # (Auto) 0.01 L (0.04-0.54) K/mm3 Baso # (Auto) 0.02 (0.01-0.08) K/mm3 Sodium 140 (136-145) mEq/L Potassium 3.5 (3.5-5.1) mEq/L Chloride 103 (98-107) mEq/L Carbon Dioxide 22 (21-32) mEq/L Anion Gap 18.5 H (5-15) BUN 11 (7-18) mg/dL Creatinine 0.8 (0.7-1.3) mg/dL Est Cr Clr Drug Dosing 83.78 mL/min Estimated GFR (MDRD) > 60 (>60) mL/min BUN/Creatinine Ratio 13.8 L (14-18) Glucose 173 H (70-99) mg/dL POC Glucose 149 H (70-99) mg/dL Calcium 8.2 L (8.5-10.1) mg/dL Phosphorus 3.4 (2.6-4.7) mg/dL Magnesium 1.5 L (1.8-2.4) mg/dL Total Bilirubin 0.7 (0.2-1.0) mg/dL AST 21 (15-37) U/L ALT 20 (16-63) U/L Alkaline Phosphatase 76 (46-116) U/L C-Reactive Protein 5.0 H* (<1.0) mg/dL Total Protein 6.1 L (6.4-8.2) g/dl Albumin 2.4 L (3.4-5.0) g/dl Globulin 3.7 gm/dL Albumin/Globulin Ratio 0.7 L (1-2) Med Orders - Current: Current Medications Acetaminophen (Acetaminophen 325 Mg Tab) 650 mg PO Q4H PRN PRN Reason: Pain (Mild 1-3)/fever Enoxaparin Sodium (Enoxaparin 40 Mg/0.4 Ml Syringe) 40 mg SUBCUT DAILY [facility] Last Admin: 11/02/21 08:19 Dose: 40 mg Documented by: Magnesium Sulfate 4 gm/ Premix 50 mls @ 12.5 mls/hr IV ONETIME ONE Stop: 11/03/21 12:29 Insulin Glargine (Insulin Glargine,Hum.Rec.Anlog 100 Unit/Ml 3 Ml Pen) 20 unit SUBCUT DAILY [facility] Last Admin: 11/02/21 08:32 Dose: 20 units Documented by: Insulin Human Lispro (Insulin Lispro 100 Unit/Ml 3 Ml Kwikpen) 0 unit SUBCUT QIDACANDBED [facility]; Protocol Last Admin: 11/03/21 07:10 Dose: Not Given Documented by: Insulin Human Lispro (Insulin Lispro 100 Unit/Ml 3 Ml Kwikpen) [facility] Last Admin: 11/02/21 18:15 Dose: Not Given Documented by: Metformin HCl (Metformin 500 Mg Tab) 500 mg PO QAM JUAN CARLOS Ondansetron HCl (Ondansetron 4 Mg/2 Ml Sdv) 4 mg IV Q6H PRN PRN Reason: Nausea/Vomiting Last Admin: 11/01/21 13:16 Dose: 4 mg Documented by: Sodium Chloride (Sodium Chloride 0.9% 10 Ml Syringe) 10 ml FLUSH ASDIRECTED PRN PRN Reason: Keep Vein Open Last Admin: 10/30/21 10:58 Dose: 10 ml Documented by: Sodium Chloride (Sodium Chloride 0.9% 10 Ml Syringe) 30 ml FLUSH ASDIRECTED JUAN CARLOS Discontinued Medications Dextrose/Water (50% Dextrose In Water 50 Ml Syringe) 25 ml IVPUSH NOW STA Stop: 11/01/21 13:26 Last Admin: 11/01/21 13:29 Dose: 25 ml Documented by: Dextrose/Water (50% Dextrose In Water 50 Ml Syringe) Confirm Administered Dose 50 ml .ROUTE .STK-MED ONE Stop: 11/01/21 13:29 Last Admin: 11/01/21 13:43 Dose: Not Given Documented by: Diphenhydramine HCl (Diphenhydramine 50 Mg/Ml Sdv) 50 mg IVPUSH ASDIRECTED PRN PRN Reason: hypersensitivity reaction Epinephrine HCl (Epinephrine 1 Mg/Ml Sdv) 0.3 mg IM ASDIRECTED PRN PRN Reason: hypersensitivity reaction Famotidine (Famotidine 20 Mg/2 Ml Sdv) 20 mg IVPUSH ASDIRECTED PRN PRN Reason: hypersensitivity reaction Sodium Chloride (Normal Saline) 1,000 mls @ 999 mls/hr IV Q1H JUAN CARLOS Stop: 10/30/21 11:29 Last Admin: 10/30/21 10:56 Dose: 999 mls/hr Documented by: Insulin Human Regular 100 unit (/ Sodium Chloride) 100 mls @ 1.27 mls/hr IV TITRATE JUAN CARLOS; Protocol Last Admin: 10/30/21 11:32 Dose: 0.1 units/kg/hr, 6.35 mls/hr Documented by: Sodium Chloride (Normal Saline) 1,000 mls @ 999 mls/hr IV ONETIME ONE Stop: 10/30/21 13:27 Last Admin: 10/30/21 12:34 Dose: 999 mls/hr Documented by: Sodium Chloride (Normal Saline) 1,000 mls @ 999 mls/hr IV ONETIME ONE Stop: 10/30/21 15:06 Last Admin: 10/30/21 14:15 Dose: 999 mls/hr Documented by: Potassium Chloride/Dextrose/Sod Cl (D5 Ns With 20 Meq Kcl) 1,000 mls @ 200 mls/hr IV ASDIRECTED JUAN CARLOS Last Admin: 10/30/21 21:19 Dose: 200 mls/hr Documented by: Insulin Human Regular 100 unit (/ Sodium Chloride) 100 mls @ 1.27 mls/hr IV TITRATE JUAN CARLOS; Protocol Last Titration: 11/01/21 11:45 Dose: 0 units/kg/hr, 0 mls/hr Documented by: Bamlanivimab 700 mg/Etesevimab 1,400 mg/ Sodium Chloride 310 mls @ 310 mls/hr IV ONETIME ONE Stop: 10/30/21 17:44 Last Admin: 10/30/21 16:54 Dose: 310 mls/hr Documented by: Insulin Human Regular 100 unit (/ Sodium Chloride) 100 mls @ 1.905 mls/hr IV TITRATE JUAN CARLOS; Protocol Magnesium Sulfate 4 gm/ Premix 50 mls @ 12.5 mls/hr IV ONETIME ONE Stop: 10/30/21 23:05 Last Admin: 10/30/21 20:40 Dose: 12.5 mls/hr Documented by: Potassium Chloride/Dextrose/Sod Cl (D5 1/2 Ns W/ 20 Meq/L Kcl) 1,000 mls @ 200 mls/hr IV ASDIRECTED JUAN CARLOS Last Admin: 11/01/21 06:31 Dose: 200 mls/hr Documented by: Potassium Chloride 10 meq/ (Premix) 100 mls @ 100 mls/hr IV ASDIRECTED ONE Stop: 10/31/21 18:59 Last Admin: 10/31/21 17:53 Dose: 100 mls/hr Documented by: Potassium Chloride 10 meq/ (Premix) 100 mls @ 100 mls/hr IV ASDIRECTED ONE Stop: 10/31/21 19:59 Last Admin: 10/31/21 18:57 Dose: 100 mls/hr Documented by: Potassium Chloride 10 meq/ (Premix) 100 mls @ 100 mls/hr IV ASDIRECTED ONE Stop: 10/31/21 20:59 Last Admin: 10/31/21 19:58 Dose: 100 mls/hr Documented by: Potassium Chloride 10 meq/ (Premix) 100 mls @ 100 mls/hr IV ASDIRECTED ONE Stop: 10/31/21 21:59 Last Admin: 10/31/21 21:01 Dose: 100 mls/hr Documented by: Sodium Phosphate 30 mmole/ (Sodium Chloride) 260 mls @ 86.667 mls/hr IV ONETIME ONE Stop: 10/31/21 21:01 Last Admin: 10/31/21 22:45 Dose: Not Given Documented by: Sodium Phosphate 30 mmole/ (Sodium Chloride) 260 mls @ 86.667 mls/hr IV ONETIME ONE Stop: 11/01/21 10:59 Last Admin: 11/01/21 08:44 Dose: Not Given Documented by: Magnesium Sulfate 4 gm/ Premix 50 mls @ 12.5 mls/hr IV ONETIME ONE Stop: 11/01/21 09:52 Last Admin: 11/01/21 06:32 Dose: 12.5 mls/hr Documented by: Sodium Phosphate 30 mmole/ (Sodium Chloride) 260 mls @ 86.667 mls/hr IV ONETIME ONE Stop: 11/01/21 11:59 Last Admin: 11/01/21 09:07 Dose: 86.667 mls/hr Documented by: Potassium Phosphate 30 mmole/ (Sodium Chloride) 510 mls @ 102 mls/hr IV ASDIRECTED [facility] Stop: 11/01/21 16:59 Last Admin: 11/01/21 12:19 Dose: 102 mls/hr Documented by: Sodium Chloride (Normal Saline) 500 mls @ 999 mls/hr IV .BOLUS ONE Stop: 11/02/21 17:30 Last Admin: 11/02/21 16:55 Dose: 999 mls/hr Documented by: Insulin Glargine (Insulin Glargine,Hum.Rec.Anlog 100 Unit/Ml 3 Ml Pen) 25 unit SUBCUT DAILY [facility] Last Admin: 11/01/21 09:32 Dose: 25 units Documented by: Insulin Human Lispro (Insulin Lispro 100 Unit/Ml 3 Ml Kwikpen) 8 unit SUBCUT TIDAC [facility] Last Admin: 11/01/21 18:45 Dose: Not Given Documented by: Insulin Human Regular (Insulin Regular, Human 100 Units/Ml 3 Ml Vial) 6 unit IV ONETIME ONE Stop: 10/30/21 11:05 Last Admin: 10/30/21 11:23 Dose: 6 unit Documented by: Magnesium Oxide (Magnesium Oxide 400 Mg Tab) 400 mg PO BID JUAN CARLOS Last Admin: 11/02/21 08:19 Dose: 400 mg Documented by: Methylprednisolone Sodium Succinate (Methylprednisolone Sodium Succinate 125 Mg/2 Ml Sdv) 125 mg IVPUSH ASDIRECTED PRN PRN Reason: hypersensitivity reaction Ondansetron HCl (Ondansetron 4 Mg/2 Ml Sdv) 4 mg IVPUSH ONETIME ONE Stop: 10/30/21 10:17 Last Admin: 10/30/21 10:57 Dose: 4 mg Documented by: Potassium Chloride (Potassium Chloride 20 Meq Tab.Er) 40 meq PO ONETIME ONE Stop: 11/02/21 08:00 Last Admin: 11/02/21 08:45 Dose: 40 meq Documented by: - Exam General: Reports: Alert, Oriented HEENT: Reports: Pupils Equal, Mucous Membr. Moist/[place] Neck: Reports: Supple Lungs: Reports: Clear to Auscultation, Normal Respiratory Effort Cardiovascular: Reports: Regular Rate, Regular Rhythm GI/Abdominal Exam: Normal Bowel Sounds, Soft, Non-Tender, No Organomegaly, No Abnormal Bruit Extremities: Normal Inspection, Normal Range of Motion, Non-Tender, No Pedal Edema, Normal Capillary Refill Neurological: Reports: No New Focal Deficit
[2021-11-03] MEDS: Insulin Glargine,Hum.Rec.Anlog 100 UNIT/ML 3 ML Pen SUBCUT SCH (10:19)
[2021-11-03] MEDS: Enoxaparin 40 MG/0.4 ML Syringe SUBCUT SCH (10:22)
== END 2021-11-03 16:45 | disposition home or self-care (01) | DRG 637 ==
LOC: JD.ED 09:44 → JD.ICU 18:24
PROVIDERS: ADMIT Family Medicine; ATTEND Family Medicine
PROC: XW033G6 Introduction of REGN-COV2 Monoclonal Antibody into Peripheral Vein, Percutaneous Approach, New Technology Group 6 (ICD-10-PCS; principal; 2021-10-30)
DX: E11.10 Type 2 diabetes mellitus with ketoacidosis without coma (principal); U07.1 COVID-19; N28.9 Disorder of kidney and ureter, unspecified; I10 Essential (primary) hypertension; Z23 Encounter for immunization
CPT/HCPCS: 36415; 36600; 71045; 71045-26; 80048; 80053; 81001; 82009; 82728; 82803; 82947; 83036; 83615; 83690; 83735; 84100; 85025; 85379; 86140; 96365; 96366; 96375; 99285-25; A9270-GY; J1650; J1815; J1815-GY; J2405; J3475; J3480; J3490; J7030; J7040; J7050; M0245; Q0245; U0002

== ENCOUNTER 2022-02-10 08:49 | Inpatient (IN) | payer BC ==
[2022-02-10] MEDS ORDERED: Ondansetron 4 MG/2 ML SDV IVPUSH ONE (09:31)
[2022-02-10] MEDS ORDERED: Sodium Chloride 0.9% 10 ML Syringe FLUSH PRN (09:31)
[2022-02-10] MEDS ORDERED: Sodium Chloride 0.9% 1,000 ML IV SCH ×2 (09:45→10:15)
[2022-02-10 10:37] LABS: HEMOGLOBIN A1C 7.6 %
[2022-02-10] MEDS ORDERED: Lactated Ringers 1,000 ML IV SCH (11:45)
[2022-02-10] MEDS ORDERED: Insulin Regular, Human 100 Units/ML 3 ML Vial SUBCUT ONE (12:45)
[2022-02-10] MEDS ORDERED: Insulin Regular, Human 100 Units/ML 3 ML Vial ONE (15:02)
[2022-02-10] MEDS ORDERED: Ondansetron 4 MG Tab.DIS PO PRN (15:17)
[2022-02-10] MEDS ORDERED: Acetaminophen 325 MG Tab PO PRN (15:17)
[2022-02-10] MEDS: NS + KCl 20mEq/L 1,000 ML IV SCH ×2 (16:22→23:18)
[2022-02-10] MEDS: Insulin Glargine,Human Rec. Analog 100 Units/ML 3 ML Pen SUBCUT SCH (16:26)
[2022-02-10] MEDS: Enoxaparin 40 MG/0.4 ML Syringe SUBCUT SCH (16:27)
[2022-02-10] MEDS: Gabapentin 300 MG Cap PO SCH (21:22)
[2022-02-10] MEDS: Pantoprazole 40 MG Vial IV SCH (21:23)
[2022-02-11] MEDS: Gabapentin 300 MG Cap PO SCH ×3 (08:03→20:48)
[2022-02-11] MEDS: Pantoprazole 40 MG Vial IV SCH (08:04)
[2022-02-11] MEDS: NS + KCl 20mEq/L 1,000 ML IV SCH ×2 (08:05→16:46)
[2022-02-11] MEDS: Insulin Glargine,Human Rec. Analog 100 Units/ML 3 ML Pen SUBCUT SCH (08:08)
[2022-02-11] MEDS: Insulin Regular, Human 100 Units/ML 3 ML Vial SUBCUT SCH ×3 (12:19→16:58)
[2022-02-11] MEDS: Enoxaparin 40 MG/0.4 ML Syringe SUBCUT SCH (16:51)
[2022-02-11] MEDS: Pantoprazole 40 MG Tab.CR PO SCH (20:48)
[2022-02-11] MEDS ORDERED: traMADol 50 MG Tab PO PRN (21:50)
[2022-02-12] MEDS: NS + KCl 20mEq/L 1,000 ML IV SCH (00:39)
[2022-02-12] MEDS: Insulin Regular, Human 100 Units/ML 3 ML Vial SUBCUT SCH ×2 (08:38→12:04)
[2022-02-12] MEDS: Pantoprazole 40 MG Tab.CR PO SCH (08:39)
[2022-02-12] MEDS: Gabapentin 300 MG Cap PO SCH ×2 (08:39→15:05)
[2022-02-12] MEDS: Insulin Glargine,Human Rec. Analog 100 Units/ML 3 ML Pen SUBCUT SCH (08:39)
[2022-02-13] MEDS ORDERED: Losartan 25 MG Tab PO SCH (09:00)
== END 2022-02-12 16:10 | disposition home or self-care (01) | DRG 420 ==
LOC: JD.ED 08:49 → JD.ICU 15:13 → JD.ED 15:17
PROVIDERS: ADMIT Pediatrics; ATTEND Pediatrics
PROC: 8E0ZXY6 Isolation (ICD-10-PCS; principal; 2022-02-10)
DX: E11.10 Type 2 diabetes mellitus with ketoacidosis without coma (principal); U07.1 COVID-19; K59.00 Constipation, unspecified; I10 Essential (primary) hypertension; I95.1 Orthostatic hypotension; N28.9 Disorder of kidney and ureter, unspecified; E86.0 Dehydration; D64.9 Anemia, unspecified; E11.42 Type 2 diabetes mellitus with diabetic polyneuropathy; Z79.4 Long term (current) use of insulin; Z97.3 Presence of spectacles and contact lenses; Z97.2 Presence of dental prosthetic device (complete) (partial); Z86.16 Personal history of COVID-19; Z87.891 Personal history of nicotine dependence
CPT/HCPCS: 36415; 70450; 70450-26; 80053; 81001; 82009; 82947; 83036; 83605; 83690; 83735; 84484; 85025; 86140; 93005; 96374; 97161-GP; 99285; 99285-25; A9270-GY; C9113; J1650; J1815-GY; J2405; J3480; J3490; J7030; J7120

== ENCOUNTER 2022-04-01 10:24 | Inpatient (IN) | payer BC ==
[2022-04-01] MEDS ORDERED: Sodium Chloride 0.9% 1,000 ML IV ONE ×2 (11:15→14:06)
[2022-04-01] MEDS ORDERED: Ondansetron 4 MG/2 ML SDV IVPUSH ONE ×2 (11:15→15:13)
[2022-04-01] MEDS ORDERED: Ketorolac 30 MG/ML SDV IVPUSH ONE (11:15)
[2022-04-01] MEDS ORDERED: Pantoprazole 40 MG Vial IVPUSH ONE (11:16)
[2022-04-01 12:11] LABS: CORONAVIRUS COVID-19 NAA NEGATIVE (NEGATIVE)
[2022-04-01] MEDS ORDERED: Promethazine 25 MG in Sodium Chloride 0.9% 50 ML IV ONE ×2 (12:39→23:00)
[2022-04-01] MEDS ORDERED: Insulin Regular, Human 100 Units/ML 3 ML Vial SUBCUT ONE (14:23)
[2022-04-01] MEDS ORDERED: Sodium Chloride 0.45% 1,000 ML IV SCH (18:00)
[2022-04-01] MEDS ORDERED: Dextrose 5%-0.45% NaCl 1,000 ML IV SCH (18:00)
[2022-04-01] MEDS ORDERED: Ondansetron 8 MG in Sodium Chloride 0.9% 50 ML IV PRN (18:04)
[2022-04-01] MEDS ORDERED: Sodium Chloride 0.9% 1,000 ML IV STA (18:04)
[2022-04-01] MEDS: Potassium Chloride 10 MEQ in Premix Bag 1 BAG IV SCH ×5 (19:37→23:21)
[2022-04-01] MEDS: Dextrose 5%-0.45% NaCl 1,000 ML IV SCH (20:11)
[2022-04-01] MEDS ORDERED: Insulin Aspart Protamine/Insulin Aspart 70-30 100 Units/ML 10 ML Vial SUBCUT SCH (22:00)
[2022-04-01] MEDS ORDERED: Pantoprazole 40 MG Vial IVPUSH SCH (22:30)
[2022-04-01] MEDS: LORazepam 2 MG/ML SDV IVPUSH PRN (22:53)
[2022-04-02] MEDS: Sodium Chloride 0.9% 1,000 ML IV SCH ×2 (02:43→09:28)
[2022-04-02] MEDS: Dextrose 5%-0.45% NaCl 1,000 ML IV SCH (04:25)
[2022-04-02] MEDS: Potassium Chloride 10 MEQ in Premix Bag 1 BAG IV SCH ×4 (04:25→07:29)
[2022-04-02] MEDS: LORazepam 2 MG/ML SDV IVPUSH PRN (05:08)
[2022-04-02] MEDS: Insulin Regular, Human 100 Units/ML 3 ML Vial SUBCUT SCH ×2 (06:41→11:36)
[2022-04-02] MEDS ORDERED: Metoprolol Tartrate 50 MG Tab PO SCH (08:45)
[2022-04-02] MEDS ORDERED: Enoxaparin 40 MG/0.4 ML Syringe SUBCUT SCH (09:00)
[2022-04-02] MEDS ORDERED: Losartan 100 MG Tab PO SCH (09:00)
[2022-04-02] MEDS ORDERED: Insulin Glargine,Human Rec. Analog 100 Units/ML 3 ML Pen SUBCUT SCH (09:00)
[2022-04-02] MEDS: Pantoprazole 40 MG Vial IVPUSH SCH ×2 (09:27→11:10)
== END 2022-04-02 17:21 | disposition home or self-care (01) | DRG 420 ==
LOC: JD.ED 10:24 → JD.ICU 16:30
PROVIDERS: ADMIT Pediatrics; ATTEND Pediatrics
DX: E11.10 Type 2 diabetes mellitus with ketoacidosis without coma (principal); N28.9 Disorder of kidney and ureter, unspecified; I95.1 Orthostatic hypotension; E11.42 Type 2 diabetes mellitus with diabetic polyneuropathy; H54.7 Unspecified visual loss; I10 Essential (primary) hypertension; E86.0 Dehydration; Z20.822 Contact with and (suspected) exposure to COVID-19; Z79.4 Long term (current) use of insulin
CPT/HCPCS: 0240U; 36415; 36600; 71045; 71045-26; 80048; 80053; 81003; 82009; 82271; 82803; 82947; 83605; 84484; 85007; 85027; 86140; 93005; 96365; 96375; 96376; 99285-25; A9270-GY; C9113; J1815-GY; J1885; J2060; J2405; J2550; J3480; J7030; J7042

== ENCOUNTER 2022-04-20 08:55 | Day surgery (SDC) | payer BC ==
[~2022-04-20 08:55] MED LIST: Lactated Ringers 1,000 ML IV SCH; Lidocaine 1%/Sod Bicarbonate in NS 8.4% 1 ML Syringe IDERM PRN; Sodium Chloride 0.9% 10 ML Syringe FLUSH PRN; Sodium Chloride 0.9% 10 ML Syringe FLUSH SCH
[2022-04-20] MEDS ORDERED: Lidocaine 1% 4 ML ONE (09:19)
[2022-04-20] MEDS ORDERED: Propofol 200 MG/20 ML SDV ONE ×2 (09:19→10:37)
[2022-04-20] MEDS ORDERED: fentaNYL 100 MCG/2 ML SDV ONE (10:27)
[2022-04-20] MEDS ORDERED: Sodium Chloride 0.9% 10 ML Syringe FLUSH PRN ×2 (13:21→13:23)
[2022-04-20] MEDS ORDERED: Iopamidol 612 MG/ML 100 ML Bottle IVPUSH ONE ×2 (13:21→13:23)
[2022-04-20] MEDS ORDERED: Sodium Chloride 0.9% 100 ML IV SCH ×2 (13:30)
== END 2022-04-20 12:55 | disposition home or self-care (01) ==
LOC: JD.SDS 08:55
PROVIDERS: ATTEND Surgery
DX: D12.3 Benign neoplasm of transverse colon (principal); D12.4 Benign neoplasm of descending colon; K20.0 Eosinophilic esophagitis; K31.A0 Gastric intestinal metaplasia, unspecified; K57.30 Diverticulosis of large intestine without perforation or abscess without bleeding; K44.9 Diaphragmatic hernia without obstruction or gangrene; K29.50 Unspecified chronic gastritis without bleeding; E11.40 Type 2 diabetes mellitus with diabetic neuropathy, unspecified; K21.9 Gastro-esophageal reflux disease without esophagitis; F32.A Depression, unspecified; H54.7 Unspecified visual loss; E78.2 Mixed hyperlipidemia; D64.9 Anemia, unspecified; Z79.4 Long term (current) use of insulin; Z79.899 Other long term (current) drug therapy; Z87.891 Personal history of nicotine dependence
CPT/HCPCS: 43239; 45380; 45385; 71260; 74177; J2704; J3010; J7120

== ENCOUNTER 2022-05-10 14:27 | Emergency (ER) | payer BC ==
[2022-05-10] MEDS ORDERED: Sodium Chloride 0.9% 10 ML Syringe FLUSH PRN (15:11)
[2022-05-10] MEDS ORDERED: Ondansetron 4 MG/2 ML SDV IVPUSH ONE (15:11)
[2022-05-10] MEDS ORDERED: HYDROmorphone 1 MG/ML Syringe IVPUSH ONE ×2 (15:14→16:46)
[2022-05-10] MEDS ORDERED: Sodium Chloride 0.9% 1,000 ML IV SCH ×2 (15:15→17:00)
[2022-05-10 16:25] LABS: ESTIMATED GFR > 60 mL/min (>60)
[2022-05-10] MEDS ORDERED: Iopamidol 612 MG/ML 100 ML Bottle IVPUSH ONE (17:05)
== END 2022-05-10 19:02 | disposition home or self-care (01) ==
LOC: JD.ED 14:27
DX: R10.84 Generalized abdominal pain (principal); R11.2 Nausea with vomiting, unspecified; C18.9 Malignant neoplasm of colon, unspecified; I10 Essential (primary) hypertension; E11.9 Type 2 diabetes mellitus without complications; Z86.16 Personal history of COVID-19; Z79.899 Other long term (current) drug therapy; Z79.4 Long term (current) use of insulin
CPT/HCPCS: 36415; 74177; 80053; 81001; 83690; 85025; 86140; 96361; 96374; 96375; 96376; 99284; J1170; J2405; J3490; J7030; Q9967; 99285

== ENCOUNTER 2022-06-03 12:43 | Emergency (ER) | payer BC ==
[2022-06-03] MEDS ORDERED: Ondansetron 4 MG/2 ML SDV IVPUSH ONE (13:47)
[2022-06-03] MEDS ORDERED: Sodium Chloride 0.9% 10 ML Syringe FLUSH PRN (13:47)
[2022-06-03] MEDS ORDERED: Sodium Chloride 0.9% 1,000 ML IV SCH (14:00)
[2022-06-03 14:55] LABS: ESTIMATED GFR 96 mL/min (>60)
[2022-06-03] MEDS ORDERED: Metoclopramide 10 MG/2 ML SDV IVPUSH ONE (15:01)
[2022-06-03] MEDS ORDERED: Morphine 4 MG/ML Syringe IVPUSH ONE (15:45)
[2022-06-03] MEDS ORDERED: Promethazine 25 MG in Sodium Chloride 0.9% 50 ML IV ONE (16:35)
[2022-06-03] MEDS ORDERED: fentaNYL 100 MCG/2 ML SDV IVPUSH ONE (16:35)
== END 2022-06-03 18:27 | disposition home or self-care (01) ==
LOC: JD.ED 12:43
DX: R10.13 Epigastric pain (principal); R11.2 Nausea with vomiting, unspecified; I10 Essential (primary) hypertension; E11.9 Type 2 diabetes mellitus without complications; Z79.4 Long term (current) use of insulin; Z79.899 Other long term (current) drug therapy; Z86.16 Personal history of COVID-19
CPT/HCPCS: 36415; 74018; 80053; 81001; 83690; 85025; 86140; 96361; 96365; 96375; 99284; J2270; J2405; J2550; J2765; J3010; J3490; J7030

== ENCOUNTER 2022-06-05 13:41 | Emergency (ER) | payer BC ==
[2022-06-05] MEDS ORDERED: Sodium Chloride 0.9% 1,000 ML IV ONE ×3 (14:26→15:44)
[2022-06-05] MEDS ORDERED: Ondansetron 4 MG/2 ML SDV IVPUSH ONE (14:27)
[2022-06-05] MEDS ORDERED: Sodium Chloride 0.9% 250 ML IV SCH (14:30)
[2022-06-05] MEDS ORDERED: Metoclopramide 10 MG/2 ML SDV IVPUSH ONE (14:55)
[2022-06-05] MEDS ORDERED: fentaNYL 100 MCG/2 ML SDV IVPUSH ONE (16:47)
[2022-06-05] MEDS ORDERED: Sodium Chloride 0.9% 1,000 ML IV SCH (18:30)
[2022-06-05] MEDS ORDERED: Morphine 2 MG/ML SYRINGE IVPUSH ONE (19:11)
[2022-06-05] MEDS ORDERED: Lactated Ringers 1,000 ML IV SCH (20:00)
[2022-06-06] MEDS ORDERED: HYDROmorphone 0.5 MG/0.5 ML Syringe IVPUSH ONE (02:41)
[2022-06-06] MEDS ORDERED: Metoclopramide 5 MG Tab PO ONE (07:38)
[2022-06-06] MEDS ORDERED: Acetaminophen/HYDROcodone 325-5 MG Tab PO ONE (08:30)
== END 2022-06-06 09:34 | disposition home or self-care (01) ==
LOC: JD.ED 13:41
DX: R11.2 Nausea with vomiting, unspecified (principal); E86.0 Dehydration; R10.84 Generalized abdominal pain; I10 Essential (primary) hypertension; E11.9 Type 2 diabetes mellitus without complications; Z79.4 Long term (current) use of insulin; Z79.899 Other long term (current) drug therapy; Z86.16 Personal history of COVID-19
CPT/HCPCS: 36415; 74019; 74177; 80048; 80053; 81001; 82009; 82803; 82947; 83605; 83690; 85025; 87040; 96361; 96374; 96375; 99284; A9270; J1170; J2270; J2405; J2765; J3010; J7030

== ENCOUNTER 2022-06-08 10:12 | Inpatient (IN) | payer BC ==
[2022-06-08] MEDS ORDERED: Metoclopramide 10 MG/2 ML SDV IVPUSH ONE (11:40)
[2022-06-08] MEDS ORDERED: HYDROmorphone 0.5 MG/0.5 ML Syringe IVPUSH ONE (11:41)
[2022-06-08] MEDS ORDERED: Lactated Ringers 1,000 ML IV SCH ×2 (11:45→14:00)
[2022-06-08 12:13] LABS: HEMOGLOBIN A1C 6.5 %
[2022-06-08] MEDS ORDERED: HYDROmorphone 1 MG/ML Syringe IVPUSH ONE (14:17)
[2022-06-08] MEDS ORDERED: Ondansetron 4 MG/2 ML SDV IVPUSH ONE (14:17)
[2022-06-08] MEDS ORDERED: Acetaminophen 325 MG Tab PO PRN (14:34)
[2022-06-08] MEDS ORDERED: Docusate Sodium 100 MG Cap PO PRN (14:34)
[2022-06-08] MEDS ORDERED: Lactated Ringers 1,000 ML IV ONE (14:40)
[2022-06-08] MEDS ORDERED: Magnesium Sulfate/Water 2 GM in Premix Bag 1 BAG IV ONE (14:41)
[2022-06-08] MEDS: Insulin Lispro 100 Unit/ML 3 ML KwikPen SUBCUT SCH (16:47)
[2022-06-08] MEDS: Dextrose 5%-0.45% NaCl 1,000 ML IV SCH (18:05)
[2022-06-08] MEDS: HYDROmorphone 0.5 MG/0.5 ML Syringe IVPUSH PRN ×3 (18:05→22:46)
[2022-06-08] MEDS: Metoclopramide 10 MG/2 ML SDV IVPUSH PRN (18:14)
[2022-06-08] MEDS: Acetaminophen/HYDROcodone 325-5 MG Tab PO PRN (22:39)
[2022-06-09] MEDS: HYDROmorphone 0.5 MG/0.5 ML Syringe IVPUSH PRN ×6 (01:14→22:58)
[2022-06-09] MEDS: Dextrose 5%-0.45% NaCl 1,000 ML IV SCH ×2 (03:41→14:06)
[2022-06-09] MEDS: Metoclopramide 10 MG/2 ML SDV IVPUSH PRN ×2 (04:21→19:43)
[2022-06-09] MEDS: Insulin Lispro 100 Unit/ML 3 ML KwikPen SUBCUT SCH ×3 (07:39→16:56)
[2022-06-09] MEDS: Insulin Glargine,Human Rec. Analog 100 Units/ML 3 ML Pen SUBCUT SCH (07:59)
[2022-06-09] MEDS ORDERED: Potassium Chloride 20 MEQ Tab.ER PO ONE ×2 (08:30→12:00)
[2022-06-09] MEDS ORDERED: Enoxaparin 30 MG/0.3 ML Syringe SUBCUT SCH (09:00)
[2022-06-09] MEDS: Ondansetron 4 MG/2 ML SDV IV PRN (09:18)
[2022-06-09] MEDS: Potassium Chloride 10 MEQ in Premix Bag 1 BAG IV SCH ×4 (09:25→12:26)
[2022-06-09] MEDS ORDERED: Magnesium Sulfate/Water 4 GM in Premix Bag 1 BAG IV ONE ×2 (10:00→12:30)
[2022-06-10] MEDS: Dextrose 5%-0.45% NaCl 1,000 ML IV SCH ×3 (00:11→22:10)
[2022-06-10] MEDS: Metoclopramide 10 MG/2 ML SDV IVPUSH PRN (02:57)
[2022-06-10] MEDS: Insulin Lispro 100 Unit/ML 3 ML KwikPen SUBCUT SCH ×3 (07:16→17:36)
[2022-06-10] MEDS ORDERED: Magnesium Sulfate/Water 4 GM in Premix Bag 1 BAG IV ONE ×2 (07:30→11:30)
[2022-06-10] MEDS: Potassium Chloride 10 MEQ in Premix Bag 1 BAG IV SCH ×8 (07:52→17:26)
[2022-06-10] MEDS: HYDROmorphone 0.5 MG/0.5 ML Syringe IVPUSH PRN ×6 (08:36→22:13)
[2022-06-10] MEDS: Enoxaparin 40 MG/0.4 ML Syringe SUBCUT SCH (08:37)
[2022-06-10] MEDS: Insulin Glargine,Human Rec. Analog 100 Units/ML 3 ML Pen SUBCUT SCH (08:38)
[2022-06-10] MEDS ORDERED: Metoclopramide 5 MG Tab PO SCH (09:00)
[2022-06-10] MEDS: Pantoprazole 40 MG Vial IVPUSH SCH (10:10)
[2022-06-10] MEDS: Ondansetron 4 MG/2 ML SDV IV PRN (11:34)
[2022-06-10] MEDS ORDERED: Promethazine 25 MG in Sodium Chloride 0.9% 50 ML IV PRN (12:00)
[2022-06-10] MEDS ORDERED: Benzocaine 20% Topical Spray UD MUCMEM ONE (12:20)
[2022-06-10] MEDS ORDERED: LORazepam 2 MG/ML SDV IVPUSH ONE (16:22)
[2022-06-10] MEDS: Acetaminophen/HYDROcodone 325-5 MG Tab PO PRN (19:56)
[2022-06-11] MEDS: HYDROmorphone 0.5 MG/0.5 ML Syringe IVPUSH PRN ×2 (01:01→04:04)
[2022-06-11] MEDS: cefTRIAXone 2 GM in Sodium Chloride 0.9% 100 ML IV SCH (06:11)
[2022-06-11] MEDS: HYDROmorphone 1 MG/ML Syringe IVPUSH PRN ×4 (06:13→20:55)
[2022-06-11] MEDS ORDERED: Magnesium Sulfate/Water 2 GM in Premix Bag 1 BAG IV ONE (08:00)
[2022-06-11] MEDS: Pantoprazole 40 MG Vial IVPUSH SCH (10:18)
[2022-06-11] MEDS: Dextrose 5%-0.9% NaCl 1,000 ML IV SCH (10:21)
[2022-06-11] MEDS: Insulin Lispro 100 Unit/ML 3 ML KwikPen SUBCUT SCH ×3 (10:28→18:32)
[2022-06-11] MEDS: Insulin Glargine,Human Rec. Analog 100 Units/ML 3 ML Pen SUBCUT SCH (10:29)
[2022-06-11] MEDS: Potassium Chloride 10 MEQ in Premix Bag 1 BAG IV SCH ×6 (12:13→18:22)
[2022-06-11] MEDS ORDERED: Propofol 200 MG/20 ML SDV ONE (12:25)
[2022-06-11] MEDS ORDERED: fentaNYL 100 MCG/2 ML SDV ONE (12:25)
[2022-06-11] MEDS ORDERED: Lidocaine 1% 6 ML ONE (12:26)
[2022-06-11] MEDS ORDERED: Midazolam 1 MG/ML 2 ML SDV ONE (12:28)
[2022-06-11] MEDS ORDERED: Rocuronium 50 MG/5 ML Vial ONE (13:48)
[2022-06-11] MEDS ORDERED: Dexamethasone 4 MG/ML SDV ONE (14:13)
[2022-06-11] MEDS ORDERED: Ondansetron 4 MG/2 ML SDV ONE (14:13)
[2022-06-11] MEDS ORDERED: Sugammadex Sodium 200 MG/2 ML VIAL ONE (14:13)
[2022-06-12] MEDS: Dextrose 5%-0.9% NaCl 1,000 ML IV SCH (01:21)
[2022-06-12] MEDS: HYDROmorphone 1 MG/ML Syringe IVPUSH PRN ×2 (01:28→04:52)
[2022-06-12] MEDS: cefTRIAXone 2 GM in Sodium Chloride 0.9% 100 ML IV SCH (04:53)
[2022-06-12] MEDS ORDERED: Magnesium Sulfate/Water 4 GM in Premix Bag 1 BAG IV ONE (06:09)
[2022-06-12] MEDS: Ondansetron 4 MG/2 ML SDV IV PRN (07:43)
[2022-06-12] MEDS: Pantoprazole 40 MG Vial IVPUSH SCH ×2 (07:56→10:24)
[2022-06-12] MEDS: Insulin Glargine,Human Rec. Analog 100 Units/ML 3 ML Pen SUBCUT SCH (07:59)
[2022-06-12] MEDS ORDERED: HYDROmorphone 1 MG/ML Syringe IVPUSH PRN ×2 (08:02→08:12)
[2022-06-12] MEDS: Acetaminophen/HYDROcodone 325-5 MG Tab PO PRN ×4 (08:06→21:46)
[2022-06-12] MEDS: Insulin Lispro 100 Unit/ML 3 ML KwikPen SUBCUT SCH ×3 (08:55→16:58)
[2022-06-12] MEDS: [UNRECOGNIZED DRUG - OTHER] EYERT SCH ×2 (14:49→21:46)
[2022-06-12] MEDS: OPTH EYERT SCH ×2 (14:49→21:46)
[2022-06-13] MEDS: cefTRIAXone 2 GM in Sodium Chloride 0.9% 100 ML IV SCH (05:39)
[2022-06-13] MEDS: Insulin Lispro 100 Unit/ML 3 ML KwikPen SUBCUT SCH ×3 (06:15→18:48)
[2022-06-13] MEDS ORDERED: Ondansetron 4 MG/2 ML SDV ONE (06:49)
[2022-06-13] MEDS: Ondansetron 4 MG/2 ML SDV IVPUSH PRN ×3 (06:53→21:44)
[2022-06-13] MEDS ORDERED: Magnesium Sulfate/Water 4 GM in Premix Bag 1 BAG IV ONE (07:37)
[2022-06-13] MEDS ORDERED: LORazepam 2 MG/ML SDV IVPUSH PRN (07:39)
[2022-06-13] MEDS ORDERED: Promethazine 25 MG in Sodium Chloride 0.9% 50 ML IV PRN (09:00)
[2022-06-13] MEDS: Enoxaparin 40 MG/0.4 ML Syringe SUBCUT SCH (09:56)
[2022-06-13] MEDS: Pantoprazole 40 MG Vial IVPUSH SCH (09:56)
[2022-06-13] MEDS: HYDROmorphone 1 MG/ML Syringe IVPUSH PRN ×3 (09:57→21:44)
[2022-06-13] MEDS: Losartan 25 MG Tab PO SCH (09:59)
[2022-06-13] MEDS: OPTH EYERT SCH ×3 (10:07→21:36)
[2022-06-13] MEDS: [UNRECOGNIZED DRUG - OTHER] EYERT SCH ×3 (10:07→21:36)
[2022-06-13] MEDS: Insulin Glargine,Human Rec. Analog 100 Units/ML 3 ML Pen SUBCUT SCH (10:13)
[2022-06-14] MEDS: HYDROmorphone 1 MG/ML Syringe IVPUSH PRN ×2 (02:09→06:15)
[2022-06-14] MEDS: cefTRIAXone 2 GM in Sodium Chloride 0.9% 100 ML IV SCH (05:48)
[2022-06-14] MEDS: Insulin Lispro 100 Unit/ML 3 ML KwikPen SUBCUT SCH ×3 (06:15→16:48)
[2022-06-14] MEDS ORDERED: Magnesium Sulfate/Water 4 GM in Premix Bag 1 BAG IV ONE (06:29)
[2022-06-14] MEDS: Pantoprazole 40 MG Vial IVPUSH SCH (08:37)
[2022-06-14] MEDS: Losartan 25 MG Tab PO SCH (08:43)
[2022-06-14] MEDS: Enoxaparin 40 MG/0.4 ML Syringe SUBCUT SCH (08:44)
[2022-06-14] MEDS ORDERED: Insulin Glargine,Human Rec. Analog 100 Units/ML 3 ML Pen SUBCUT ONE (08:48)
[2022-06-14] MEDS: Insulin Glargine,Human Rec. Analog 100 Units/ML 3 ML Pen SUBCUT SCH (08:49)
[2022-06-14] MEDS: OPTH EYERT SCH ×3 (09:02→21:48)
[2022-06-14] MEDS: [UNRECOGNIZED DRUG - OTHER] EYERT SCH ×3 (09:02→21:48)
[2022-06-15] MEDS: cefTRIAXone 2 GM in Sodium Chloride 0.9% 100 ML IV SCH (06:19)
[2022-06-15] MEDS: Insulin Lispro 100 Unit/ML 3 ML KwikPen SUBCUT SCH ×3 (07:57→16:21)
[2022-06-15] MEDS ORDERED: Magnesium Sulfate/Water 4 GM in Premix Bag 1 BAG IV ONE ×2 (08:02→13:00)
[2022-06-15] MEDS: Losartan 25 MG Tab PO SCH (08:04)
[2022-06-15] MEDS: Insulin Glargine,Human Rec. Analog 100 Units/ML 3 ML Pen SUBCUT SCH (08:05)
[2022-06-15] MEDS: OPTH EYERT SCH ×3 (08:39→21:19)
[2022-06-15] MEDS: [UNRECOGNIZED DRUG - OTHER] EYERT SCH ×3 (08:39→21:19)
[2022-06-15] MEDS ORDERED: Magnesium Oxide 400 MG Tab PO SCH (09:00)
[2022-06-15] MEDS ORDERED: Magnesium Sulfate/Water 2 GM in Premix Bag 1 BAG IV ONE (09:15)
[2022-06-15] MEDS: Metoclopramide 10 MG Tab PO SCH ×3 (11:58→21:19)
[2022-06-15] MEDS: Pantoprazole 40 MG Vial IVPUSH SCH (12:01)
[2022-06-15] MEDS: Gabapentin 300 MG Cap PO SCH ×3 (12:01→21:19)
[2022-06-16] MEDS: Gabapentin 300 MG Cap PO SCH ×2 (08:18→12:04)
[2022-06-16] MEDS: Losartan 25 MG Tab PO SCH (08:18)
[2022-06-16] MEDS: Metoclopramide 10 MG Tab PO SCH ×2 (08:18→12:04)
[2022-06-16] MEDS: Insulin Lispro 100 Unit/ML 3 ML KwikPen SUBCUT SCH ×2 (08:21→12:03)
[2022-06-16] MEDS: Insulin Glargine,Human Rec. Analog 100 Units/ML 3 ML Pen SUBCUT SCH (08:22)
[2022-06-16] MEDS: [UNRECOGNIZED DRUG - OTHER] EYERT SCH (08:30)
[2022-06-16] MEDS: Pantoprazole 40 MG Vial IVPUSH SCH (08:30)
[2022-06-16] MEDS: OPTH EYERT SCH (08:30)
[2022-06-16] MEDS ORDERED: Magnesium Sulfate/Water 4 GM in Premix Bag 1 BAG IV ONE (09:00)
== END 2022-06-16 13:10 | disposition home or self-care (01) | DRG 469 ==
LOC: JD.ED 10:12 → JD.MS 13:59
PROVIDERS: ADMIT Emergency Medicine; ATTEND Internal Medicine
PROC: 0DH63UZ Insertion of Feeding Device into Stomach, Percutaneous Approach (ICD-10-PCS; principal; 2022-06-11)
PROC: 3E0G76Z Introduction of Nutritional Substance into Upper GI, Via Natural or Artificial Opening (ICD-10-PCS; 2022-06-11)
PROC: 0R9N3ZZ Drainage of Right Wrist Joint, Percutaneous Approach (ICD-10-PCS; 2022-06-11)
DX: N17.9 Acute kidney failure, unspecified (principal); E11.43 Type 2 diabetes mellitus with diabetic autonomic (poly)neuropathy; E86.0 Dehydration; E87.6 Hypokalemia; E83.42 Hypomagnesemia; E88.89 Other specified metabolic disorders; C20 Malignant neoplasm of rectum; E46 Unspecified protein-calorie malnutrition; I10 Essential (primary) hypertension; L03.113 Cellulitis of right upper limb; R64 Cachexia; K31.84 Gastroparesis; F32.A Depression, unspecified; D64.9 Anemia, unspecified; E44.0 Moderate protein-calorie malnutrition; Z68.1 Body mass index [BMI] 19.9 or less, adult; Z86.16 Personal history of COVID-19; Z79.4 Long term (current) use of insulin; Z97.3 Presence of spectacles and contact lenses; W18.30XA Fall on same level, unspecified, initial encounter; Y92.009 Unspecified place in unspecified non-institutional (private) residence as the place of occurrence of the external cause; M19.039 Primary osteoarthritis, unspecified wrist
CPT/HCPCS: 00731; 36410; 36415; 71045; 71045-26; 76937; 80053; 80202; 81001; 82009; 82947; 83036; 83605; 83735; 83880; 83930; 84100; 84550; 85025; 85610; 85652; 85730; 86140; 87040; 93005; 93010; 96361; 96374; 97116-GP; 97162-GP; 97166-GO; 99222; 99233; 99239; 99285; 99285-25; A9270-GY; C9113; J0696; J1100; J1170; J1650; J1815; J1815-GY; J2060; J2250; J2405; J2550; J2704; J2765; J3010; J3370; J3475; J3480; J3490; J7042; J7050; J7120

== ENCOUNTER 2023-01-11 10:04 | Inpatient (IN) | payer BC ==
[2023-01-11] MEDS ORDERED: Iopamidol 612 MG/ML 100 ML Bottle IVPUSH ONE (10:45)
[2023-01-11] MEDS ORDERED: Sodium Chloride 0.9% 10 ML Syringe FLUSH ONE (10:45)
[2023-01-11] MEDS ORDERED: Iopamidol 612 MG/ML 50 ML SDV IVPUSH ONE (10:45)
[2023-01-11] MEDS ORDERED: Lactated Ringers 1,000 ML IV ONE ×2 (11:16→13:23)
[2023-01-11] MEDS ORDERED: Piperacillin/Tazobactam 4.5 GM in Sodium Chloride 0.9% 100 ML IV ONE (11:17)
[2023-01-11] MEDS ORDERED: Ondansetron 8 MG in Sodium Chloride 0.9% 50 ML IV ONE (11:32)
[2023-01-11] MEDS ORDERED: Lactated Ringers 1,000 ML ONE (13:09)
[2023-01-11] MEDS ORDERED: Zolpidem 10 MG Tab PO PRN (14:06)
[2023-01-11 14:25] LABS: CORONAVIRUS COVID-19 NAA NEGATIVE (NEGATIVE)
[2023-01-11] MEDS: Promethazine 25 MG Tab PO PRN (15:10)
[2023-01-11] MEDS: Sodium Chloride 0.9% 1,000 ML IV SCH (16:21)
[2023-01-11] MEDS: Heparin Sodium 5,000 Units/ML Vial SUBCUT SCH ×2 (16:26→22:44)
[2023-01-11] MEDS: Sucralfate 1 GM Tab PO SCH ×2 (16:26→20:59)
[2023-01-11] MEDS: Gabapentin 600 MG Tab PO SCH ×2 (16:27→20:59)
[2023-01-11] MEDS: Piperacillin/Tazobactam 4.5 GM in Sodium Chloride 0.9% 100 ML IV SCH (18:15)
[2023-01-11] MEDS: Insulin Regular, Human 100 Units/ML 3 ML Vial SUBCUT SCH (18:16)
[2023-01-11] MEDS: Ondansetron 4 MG/2 ML SDV IV PRN (20:38)
[2023-01-11] MEDS ORDERED: Sodium Chloride 0.9% 1,000 ML IV ONE (20:57)
[2023-01-12] MEDS: Sodium Chloride 0.9% 1,000 ML IV SCH ×3 (00:46→17:11)
[2023-01-12] MEDS: Piperacillin/Tazobactam 4.5 GM in Sodium Chloride 0.9% 100 ML IV SCH ×3 (02:18→17:42)
[2023-01-12] MEDS: Ondansetron 4 MG/2 ML SDV IV PRN ×3 (04:41→12:25)
[2023-01-12] MEDS: Pantoprazole 40 MG Tab.CR PO SCH ×2 (05:25→05:43)
[2023-01-12] MEDS: Promethazine 25 MG Tab PO PRN ×2 (05:43→19:43)
[2023-01-12] MEDS: Heparin Sodium 5,000 Units/ML Vial SUBCUT SCH ×3 (06:03→23:04)
[2023-01-12] MEDS ORDERED: Magnesium Sulfate (4.06 MEQ/ML) 5 GM/10 ML SDV IV ONE (07:00)
[2023-01-12] MEDS ORDERED: Magnesium Sulfate/Water 2 GM in Premix Bag 1 BAG IV ONE (07:30)
[2023-01-12] MEDS: Potassium Chloride 10 MEQ in Premix Bag 1 BAG IV SCH ×4 (07:43→13:51)
[2023-01-12] MEDS: Insulin Regular, Human 100 Units/ML 3 ML Vial SUBCUT SCH ×3 (08:47→18:02)
[2023-01-12] MEDS: Tamsulosin 0.4 MG Cap.ER PO SCH (08:48)
[2023-01-12] MEDS: Losartan 25 MG Tab PO SCH (08:48)
[2023-01-12] MEDS: Magnesium Oxide 400 MG Tab PO SCH (08:48)
[2023-01-12] MEDS: Gabapentin 600 MG Tab PO SCH ×4 (08:48→20:00)
[2023-01-12] MEDS: Sucralfate 1 GM Tab PO SCH ×3 (08:49→20:00)
[2023-01-12] MEDS: Famotidine 20 MG/2 ML SDV IVPUSH SCH ×3 (10:39→20:00)
[2023-01-12] MEDS: LORazepam 2 MG/ML SDV IVPUSH PRN ×2 (12:26→23:10)
[2023-01-12] MEDS: Scopolamine 1.5 MG Transdermal Patch TRDERM SCH (15:20)
[2023-01-13] MEDS: Sodium Chloride 0.9% 1,000 ML IV SCH ×4 (00:27→23:46)
[2023-01-13] MEDS: Piperacillin/Tazobactam 4.5 GM in Sodium Chloride 0.9% 100 ML IV SCH ×3 (02:08→18:07)
[2023-01-13] MEDS: LORazepam 2 MG/ML SDV IVPUSH PRN ×2 (05:38→20:57)
[2023-01-13] MEDS: Pantoprazole 40 MG Tab.CR PO SCH (05:39)
[2023-01-13] MEDS: Heparin Sodium 5,000 Units/ML Vial SUBCUT SCH ×3 (06:00→22:02)
[2023-01-13] MEDS ORDERED: Magnesium Sulfate/Water 2 GM in Premix Bag 1 BAG IV ONE (07:30)
[2023-01-13] MEDS ORDERED: Magnesium Sulfate (4.06 MEQ/ML) 5 GM/10 ML SDV IV ONE (07:30)
[2023-01-13] MEDS: Insulin Regular, Human 100 Units/ML 3 ML Vial SUBCUT SCH ×3 (08:04→18:17)
[2023-01-13] MEDS: Sucralfate 1 GM Tab PO SCH ×3 (08:04→20:00)
[2023-01-13] MEDS: Tamsulosin 0.4 MG Cap.ER PO SCH (08:04)
[2023-01-13] MEDS: Losartan 25 MG Tab PO SCH (08:04)
[2023-01-13] MEDS: Magnesium Oxide 400 MG Tab PO SCH (08:05)
[2023-01-13] MEDS: Gabapentin 600 MG Tab PO SCH ×5 (08:05→20:00)
[2023-01-13] MEDS: Famotidine 20 MG/2 ML SDV IVPUSH SCH ×2 (08:30→20:02)
[2023-01-13] MEDS: Ondansetron 4 MG/2 ML SDV IV PRN ×2 (16:09→20:03)
[2023-01-14] MEDS: Piperacillin/Tazobactam 4.5 GM in Sodium Chloride 0.9% 100 ML IV SCH ×3 (02:13→17:39)
[2023-01-14] MEDS: Pantoprazole 40 MG Tab.CR PO SCH (05:11)
[2023-01-14] MEDS: Heparin Sodium 5,000 Units/ML Vial SUBCUT SCH ×2 (06:12→14:01)
[2023-01-14] MEDS ORDERED: Magnesium Sulfate (4.06 MEQ/ML) 5 GM/10 ML SDV IV ONE (07:00)
[2023-01-14] MEDS ORDERED: Magnesium Sulfate/Water 2 GM in Premix Bag 1 BAG IV ONE (07:00)
[2023-01-14] MEDS: Sodium Chloride 0.9% 1,000 ML IV SCH (07:04)
[2023-01-14] MEDS: Sucralfate 1 GM Tab PO SCH ×3 (08:00→20:43)
[2023-01-14] MEDS: Tamsulosin 0.4 MG Cap.ER PO SCH (08:00)
[2023-01-14] MEDS: Losartan 25 MG Tab PO SCH (08:00)
[2023-01-14] MEDS: Gabapentin 600 MG Tab PO SCH ×4 (08:01→20:44)
[2023-01-14] MEDS: Insulin Regular, Human 100 Units/ML 3 ML Vial SUBCUT SCH ×3 (08:01→17:39)
[2023-01-14] MEDS: Magnesium Oxide 400 MG Tab PO SCH (08:01)
[2023-01-14] MEDS: Famotidine 20 MG/2 ML SDV IVPUSH SCH ×2 (08:41→20:44)
[2023-01-14] MEDS ORDERED: Pantoprazole 40 MG in Sodium Chloride 0.9% 100 ML IV SCH (09:20)
[2023-01-14] MEDS: AA 5%/Calcium/D20W/Lytes 1,000 ML IV SCH (13:34)
[2023-01-14] MEDS ORDERED: Promethazine 12.5 MG in Sodium Chloride 0.9% 50 ML IV PRN (16:12)
[2023-01-14] MEDS: Scopolamine 1.5 MG Transdermal Patch TRDERM SCH (16:25)
[2023-01-14] MEDS: LORazepam 2 MG/ML SDV IVPUSH PRN ×2 (16:25→20:44)
[2023-01-14] MEDS: Fat Emulsion 500 ML IV SCH (16:29)
[2023-01-14] MEDS: Ondansetron 4 MG/2 ML SDV IV PRN (20:44)
[2023-01-14] MEDS: Dronabinol 2.5 MG Cap PO SCH (20:44)
[2023-01-15] MEDS: Insulin Regular, Human 100 Units/ML 3 ML Vial SUBCUT SCH ×4 (00:30→19:04)
[2023-01-15] MEDS: LORazepam 2 MG/ML SDV IVPUSH PRN ×2 (00:30→23:27)
[2023-01-15] MEDS: Heparin Sodium 5,000 Units/ML Vial SUBCUT SCH (00:34)
[2023-01-15] MEDS: traZODone 50 MG Tab PO ONE ×2 (01:22→01:26)
[2023-01-15] MEDS: Piperacillin/Tazobactam 4.5 GM in Sodium Chloride 0.9% 100 ML IV SCH ×3 (01:29→19:05)
[2023-01-15] MEDS: Enoxaparin 40 MG/0.4 ML Syringe SUBCUT SCH (06:01)
[2023-01-15] MEDS: Magnesium Oxide 400 MG Tab PO SCH (08:46)
[2023-01-15] MEDS: Sucralfate 1 GM Tab PO SCH ×3 (08:46→21:55)
[2023-01-15] MEDS: Losartan 25 MG Tab PO SCH (08:46)
[2023-01-15] MEDS: Gabapentin 600 MG Tab PO SCH ×4 (08:46→21:54)
[2023-01-15] MEDS: Tamsulosin 0.4 MG Cap.ER PO SCH (08:46)
[2023-01-15] MEDS: Dronabinol 2.5 MG Cap PO SCH ×2 (08:46→22:47)
[2023-01-15] MEDS: Famotidine 20 MG/2 ML SDV IVPUSH SCH ×2 (08:47→21:54)
[2023-01-15] MEDS: Pantoprazole 40 MG Vial IV SCH (08:47)
[2023-01-15] MEDS ORDERED: Magnesium Sulfate/Water 2 GM in Premix Bag 1 BAG IV ONE (08:58)
[2023-01-15] MEDS ORDERED: Enoxaparin 30 MG/0.3 ML Syringe SUBCUT SCH (09:00)
[2023-01-15] MEDS: AA 5%/Calcium/D20W/Lytes 1,000 ML IV SCH ×2 (13:22→13:34)
[2023-01-15] MEDS: Insulin Glargine,Human Rec. Analog 100 Units/ML 3 ML Pen SUBCUT SCH (21:55)
[2023-01-15] MEDS: Ondansetron 4 MG/2 ML SDV IV PRN (23:27)
[2023-01-16] MEDS: Insulin Regular, Human 100 Units/ML 3 ML Vial SUBCUT SCH ×4 (00:46→18:39)
[2023-01-16] MEDS: Morphine 2 MG/ML SYRINGE IVPUSH PRN ×4 (01:58→22:03)
[2023-01-16] MEDS: Piperacillin/Tazobactam 4.5 GM in Sodium Chloride 0.9% 100 ML IV SCH ×3 (03:15→18:39)
[2023-01-16] MEDS: Enoxaparin 40 MG/0.4 ML Syringe SUBCUT SCH (06:00)
[2023-01-16] MEDS ORDERED: Magnesium Sulfate/Water 2 GM in Premix Bag 1 BAG IV ONE (06:30)
[2023-01-16] MEDS ORDERED: Insulin Glargine,Human Rec. Analog 100 Units/ML 3 ML Pen SUBCUT SCH (09:00)
[2023-01-16] MEDS: Potassium Chloride 10 MEQ in Premix Bag 1 BAG IV SCH ×8 (09:31→20:11)
[2023-01-16] MEDS: Sodium Chloride 0.9% 500 ML IV SCH (09:31)
[2023-01-16] MEDS: Famotidine 20 MG/2 ML SDV IVPUSH SCH ×2 (09:33→22:07)
[2023-01-16] MEDS: Pantoprazole 40 MG Vial IV SCH (09:37)
[2023-01-16] MEDS: Sucralfate 1 GM Tab PO SCH ×4 (09:40→22:04)
[2023-01-16] MEDS: Magnesium Oxide 400 MG Tab PO SCH ×2 (09:40→10:06)
[2023-01-16] MEDS: Dronabinol 2.5 MG Cap PO SCH ×2 (09:40→22:07)
[2023-01-16] MEDS: Gabapentin 600 MG Tab PO SCH ×5 (09:40→22:07)
[2023-01-16] MEDS: Tamsulosin 0.4 MG Cap.ER PO SCH (09:46)
[2023-01-16] MEDS: Losartan 25 MG Tab PO SCH (09:46)
[2023-01-16] MEDS: AA 5%/Calcium/D20W/Lytes 1,000 ML IV SCH ×2 (13:36→13:39)
[2023-01-16] MEDS: Insulin Glargine,Human Rec. Analog 100 Units/ML 3 ML Pen SUBCUT SCH (22:06)
[2023-01-17] MEDS: Ondansetron 4 MG/2 ML SDV IV PRN (00:57)
[2023-01-17] MEDS: Insulin Regular, Human 100 Units/ML 3 ML Vial SUBCUT SCH ×4 (01:45→18:30)
[2023-01-17] MEDS: AA 5%/Calcium/D20W/Lytes 1,000 ML IV SCH ×3 (01:46→23:15)
[2023-01-17] MEDS: Piperacillin/Tazobactam 4.5 GM in Sodium Chloride 0.9% 100 ML IV SCH ×3 (01:47→18:22)
[2023-01-17] MEDS: Enoxaparin 40 MG/0.4 ML Syringe SUBCUT SCH (06:22)
[2023-01-17] MEDS: Morphine 2 MG/ML SYRINGE IVPUSH PRN ×2 (06:23→20:26)
[2023-01-17] MEDS ORDERED: Magnesium Sulfate/Water 2 GM in Premix Bag 1 BAG IV ONE (08:22)
[2023-01-17] MEDS: Gabapentin 600 MG Tab PO SCH ×5 (08:55→20:14)
[2023-01-17] MEDS: Pantoprazole 40 MG Vial IV SCH (08:56)
[2023-01-17] MEDS: Famotidine 20 MG/2 ML SDV IVPUSH SCH ×2 (08:56→20:26)
[2023-01-17] MEDS: Tamsulosin 0.4 MG Cap.ER PO SCH (08:56)
[2023-01-17] MEDS: Magnesium Oxide 400 MG Tab PO SCH ×2 (08:56→10:14)
[2023-01-17] MEDS: Potassium Chloride 10 MEQ in Premix Bag 1 BAG IV SCH ×4 (08:57→13:22)
[2023-01-17] MEDS ORDERED: Insulin Glargine,Human Rec. Analog 100 Units/ML 3 ML Pen SUBCUT SCH (09:00)
[2023-01-17] MEDS: Sodium Chloride 0.9% 500 ML IV SCH (09:05)
[2023-01-17] MEDS: Dronabinol 2.5 MG Cap PO SCH ×2 (09:49→20:14)
[2023-01-17] MEDS: Fat Emulsion 500 ML IV SCH (16:48)
[2023-01-17] MEDS: Scopolamine 1.5 MG Transdermal Patch TRDERM SCH (16:56)
[2023-01-17] MEDS: Insulin Glargine,Human Rec. Analog 100 Units/ML 3 ML Pen SUBCUT SCH (20:31)
[2023-01-18] MEDS: Insulin Regular, Human 100 Units/ML 3 ML Vial SUBCUT SCH ×5 (00:01→23:36)
[2023-01-18] MEDS: Piperacillin/Tazobactam 4.5 GM in Sodium Chloride 0.9% 100 ML IV SCH ×3 (02:14→18:25)
[2023-01-18] MEDS: Morphine 2 MG/ML SYRINGE IVPUSH PRN (02:47)
[2023-01-18] MEDS: Ondansetron 4 MG/2 ML SDV IV PRN ×3 (04:06→20:22)
[2023-01-18] MEDS: Enoxaparin 40 MG/0.4 ML Syringe SUBCUT SCH (05:45)
[2023-01-18] MEDS ORDERED: hydrOXYzine HCl 10 MG Tab PO PRN (06:00)
[2023-01-18] MEDS ORDERED: Magnesium Sulfate/Water 4 GM in Premix Bag 1 BAG IV ONE (06:48)
[2023-01-18] MEDS ORDERED: fentaNYL 12 MCG/HR Transdermal Patch TRDERM SCH (08:00)
[2023-01-18] MEDS: AA 5%/Calcium/D20W/Lytes 1,000 ML IV SCH ×2 (08:59→20:39)
[2023-01-18] MEDS ORDERED: Insulin Glargine,Human Rec. Analog 100 Units/ML 3 ML Pen SUBCUT SCH ×2 (09:00)
[2023-01-18] MEDS: Pantoprazole 40 MG Vial IV SCH (09:05)
[2023-01-18] MEDS: Famotidine 20 MG/2 ML SDV IVPUSH SCH ×2 (09:05→20:22)
[2023-01-18] MEDS: Dronabinol 2.5 MG Cap PO SCH ×2 (09:06→20:29)
[2023-01-18] MEDS: Magnesium Oxide 400 MG Tab PO SCH (09:06)
[2023-01-18] MEDS: Tamsulosin 0.4 MG Cap.ER PO SCH (09:06)
[2023-01-18] MEDS: Insulin Glargine,Human Rec. Analog 100 Units/ML 3 ML Pen SUBCUT SCH (20:22)
[2023-01-19] MEDS: Ondansetron 4 MG/2 ML SDV IV PRN (06:14)
[2023-01-19] MEDS: Insulin Regular, Human 100 Units/ML 3 ML Vial SUBCUT SCH ×4 (06:18→23:44)
[2023-01-19] MEDS: Enoxaparin 40 MG/0.4 ML Syringe SUBCUT SCH (06:45)
[2023-01-19] MEDS: AA 5%/Calcium/D20W/Lytes 1,000 ML IV SCH ×2 (07:21→17:46)
[2023-01-19] MEDS: Famotidine 20 MG/2 ML SDV IVPUSH SCH ×2 (08:44→20:35)
[2023-01-19] MEDS: hydrOXYzine HCl 10 MG Tab PO SCH ×2 (08:45→22:37)
[2023-01-19] MEDS ORDERED: Insulin Glargine,Human Rec. Analog 100 Units/ML 3 ML Pen SUBCUT SCH (09:00)
[2023-01-19] MEDS: Magnesium Oxide 400 MG Tab PO SCH (10:21)
[2023-01-19] MEDS: Tamsulosin 0.4 MG Cap.ER PO SCH (10:21)
[2023-01-19] MEDS: Dronabinol 2.5 MG Cap PO SCH ×3 (10:21→22:27)
[2023-01-19] MEDS: [UNRECOGNIZED DRUG - OTHER] PO SCH (11:16)
[2023-01-19] MEDS ORDERED: Sodium Chloride 0.9% 500 ML IV ONE (15:19)
[2023-01-19] MEDS: Fat Emulsion 500 ML IV SCH (16:01)
[2023-01-19] MEDS ORDERED: diphenhydrAMINE 50 MG/ML SDV IVPUSH ONE (18:30)
[2023-01-19] MEDS: Ondansetron 4 MG Tab.DIS PO PRN ×3 (20:35→22:38)
[2023-01-19] MEDS: Insulin Glargine,Human Rec. Analog 100 Units/ML 3 ML Pen SUBCUT SCH (20:36)
[2023-01-20] MEDS: AA 5%/Calcium/D20W/Lytes 1,000 ML IV SCH ×3 (04:05→14:49)
[2023-01-20] MEDS: Ondansetron 4 MG Tab.DIS PO PRN (04:14)
[2023-01-20] MEDS: Enoxaparin 40 MG/0.4 ML Syringe SUBCUT SCH (06:43)
[2023-01-20] MEDS: Insulin Regular, Human 100 Units/ML 3 ML Vial SUBCUT SCH ×2 (06:47→13:49)
[2023-01-20] MEDS ORDERED: Ondansetron 4 MG/2 ML SDV IVPUSH PRN (08:10)
[2023-01-20] MEDS ORDERED: Metoclopramide 10 MG/2 ML SDV IVPUSH PRN (08:11)
[2023-01-20] MEDS: Dronabinol 2.5 MG Cap PO SCH (08:36)
[2023-01-20] MEDS: Famotidine 20 MG/2 ML SDV IVPUSH SCH (08:37)
[2023-01-20] MEDS ORDERED: Insulin Glargine,Human Rec. Analog 100 Units/ML 3 ML Pen SUBCUT SCH (09:00)
[2023-01-20] MEDS: Magnesium Oxide 400 MG Tab PO SCH (09:12)
[2023-01-20] MEDS: Tamsulosin 0.4 MG Cap.ER PO SCH (09:12)
[2023-01-20] MEDS: [UNRECOGNIZED DRUG - OTHER] PO SCH (10:33)
[2023-01-20] MEDS: hydrOXYzine HCl 10 MG Tab PO SCH (10:34)
[2023-01-20] MEDS: Scopolamine 1.5 MG Transdermal Patch TRDERM SCH (14:01)
== END 2023-01-20 16:21 | DRG 249 ==
LOC: JD.ED 10:04 → JD.MS 14:34
PROVIDERS: ADMIT Internal Medicine; ATTEND Internal Medicine
PROC: 3E0336Z Introduction of Nutritional Substance into Peripheral Vein, Percutaneous Approach (ICD-10-PCS; principal; 2023-01-14)
DX: K52.9 Noninfective gastroenteritis and colitis, unspecified (principal); N17.9 Acute kidney failure, unspecified; E87.6 Hypokalemia; E83.42 Hypomagnesemia; R64 Cachexia; C19 Malignant neoplasm of rectosigmoid junction; E87.20 Acidosis, unspecified; Z20.822 Contact with and (suspected) exposure to COVID-19; D64.9 Anemia, unspecified; R62.7 Adult failure to thrive; E11.43 Type 2 diabetes mellitus with diabetic autonomic (poly)neuropathy; K31.84 Gastroparesis; D84.9 Immunodeficiency, unspecified; H54.7 Unspecified visual loss; I10 Essential (primary) hypertension; E86.0 Dehydration; E46 Unspecified protein-calorie malnutrition; Z79.4 Long term (current) use of insulin; Z79.899 Other long term (current) drug therapy; Z86.16 Personal history of COVID-19; Z68.20 Body mass index [BMI] 20.0-20.9, adult; Z92.21 Personal history of antineoplastic chemotherapy; Z92.3 Personal history of irradiation
CPT/HCPCS: 0240U; 36415; 36600; 51701; 51798; 71045; 71045-26; 71046; 71046-26; 74177; 74177-26; 80048; 80053; 81001; 82803; 82947; 83605; 83690; 83735; 84100; 85025; 85027; 86140; 87040; 96361; 96365; 96367; 97116-GP; 97162-GP; 97166-GO; 97530-GP; 97535-GO; 99223; 99233; 99285; 99285-25; A9270-GY; C1751; C9113; J1650; J1815-GY; J2060; J2270; J2405; J2543; J2765; J3475; J3480; J3490; J7030; J7120; J8597; Q0167; Q9967

== ENCOUNTER 2023-02-19 00:21 | Inpatient (IN) | payer BC ==
[2023-02-19] MEDS ORDERED: Sodium Chloride 0.9% 1,000 ML IV ONE ×2 (01:22→03:33)
[2023-02-19] MEDS ORDERED: Insulin Regular, Human 100 Units/ML 3 ML Vial IV ONE (01:37)
[2023-02-19] MEDS ORDERED: Insulin Regular in 0.9 % NACL 100 ML IV SCH (01:45)
[2023-02-19] MEDS ORDERED: Ondansetron 4 MG/2 ML SDV IVPUSH ONE ×2 (02:13→04:42)
[2023-02-19] MEDS ORDERED: Piperacillin/Tazobactam 4.5 GM in Sodium Chloride 0.9% 100 ML IV ONE (03:13)
[2023-02-19] MEDS ORDERED: Dextrose 5%-0.9% NaCl 1,000 ML IV SCH ×2 (04:45→09:00)
[2023-02-19] MEDS ORDERED: Lactated Ringers 1,000 ML IV ONE (05:18)
[2023-02-19] MEDS ORDERED: Lactated Ringers 1,000 ML IV SCH (06:45)
[2023-02-19] MEDS ORDERED: Dextrose 5%-0.9% NaCl with KCl 1,000 ML IV SCH (06:45)
[2023-02-19] MEDS ORDERED: Ondansetron 4 MG Tab.DIS PO PRN (07:24)
[2023-02-19] MEDS ORDERED: Docusate Sodium 100 MG Cap PO PRN (07:24)
[2023-02-19] MEDS ORDERED: Acetaminophen 325 MG Tab PO PRN (07:24)
[2023-02-19] MEDS ORDERED: Sodium Chloride 0.9% 10 ML Syringe FLUSH PRN (07:24)
[2023-02-19] MEDS ORDERED: Ondansetron 4 MG/2 ML SDV IV PRN (07:24)
[2023-02-19] MEDS ORDERED: chlorproMAZINE 25 MG Tab PO PRN (08:55)
[2023-02-19] MEDS ORDERED: Heparin Sodium 5,000 Units/ML Vial SUBCUT SCH (09:15)
[2023-02-19] MEDS: Insulin Lispro 100 Unit/ML 3 ML KwikPen SUBCUT SCH ×2 (09:18→14:49)
[2023-02-19] MEDS: Morphine 2 MG/ML SYRINGE IVPUSH PRN ×2 (13:16→15:20)
[2023-02-19] MEDS ORDERED: Insulin Glargine,Human Rec. Analog 100 Units/ML 3 ML Pen SUBCUT SCH (21:00)
== END 2023-02-19 15:36 | DRG 469 ==
LOC: JD.ED 00:21 → JD.MS 07:24
PROVIDERS: ADMIT Hospitalist; ATTEND Hospitalist
DX: N17.9 Acute kidney failure, unspecified (principal); E87.20 Acidosis, unspecified; S72.001A Fracture of unspecified part of neck of right femur, initial encounter for closed fracture; I10 Essential (primary) hypertension; F32.A Depression, unspecified; E11.9 Type 2 diabetes mellitus without complications; Z20.822 Contact with and (suspected) exposure to COVID-19; D64.9 Anemia, unspecified; Z86.16 Personal history of COVID-19; Z79.4 Long term (current) use of insulin; Z79.899 Other long term (current) drug therapy; Z97.3 Presence of spectacles and contact lenses; Z97.2 Presence of dental prosthetic device (complete) (partial); Z85.038 Personal history of other malignant neoplasm of large intestine; W18.30XA Fall on same level, unspecified, initial encounter; Y92.89 Other specified places as the place of occurrence of the external cause
CPT/HCPCS: 36415; 36600; 71045; 71045-26; 73502-26-RT; 73502-RT; 80048; 80053; 81001; 82009; 82803; 82947; 83605; 85025; 85610; 87040; 99235; A9270-GY; J1644; J1815; J1815-GY; J2270; J2405; J2543; J3480; J3490; J7030; J7042; J7120; U0002

== ENCOUNTER 2023-03-30 10:29 | Emergency (ER) | payer BC ==
[2023-03-30] MEDS ORDERED: Sodium Chloride 0.9% 1,000 ML IV ONE (11:15)
[2023-03-30] MEDS ORDERED: Ondansetron 4 MG/2 ML SDV IVPUSH ONE (11:15)
[2023-03-30] MEDS ORDERED: Metoclopramide 10 MG/2 ML SDV IVPUSH ONE (12:58)
[2023-03-30] MEDS ORDERED: Sodium Chloride 0.9% 10 ML Syringe FLUSH PRN (13:30)
[2023-03-30] MEDS ORDERED: Iopamidol 612 MG/ML 100 ML Bottle IVPUSH ONE (13:30)
[2023-03-30] MEDS ORDERED: HYDROmorphone 0.5 MG/0.5 ML Syringe IVPUSH ONE (14:46)
== END 2023-03-30 17:15 | disposition home or self-care (01) ==
LOC: JD.ED 10:29
DX: R33.9 Retention of urine, unspecified (principal); I10 Essential (primary) hypertension; E11.9 Type 2 diabetes mellitus without complications; Z79.4 Long term (current) use of insulin; Z79.899 Other long term (current) drug therapy; Z86.16 Personal history of COVID-19
CPT/HCPCS: 36415; 51702; 74177; 80053; 81001; 83605; 83690; 85025; 86140; 93005; 96361; 96374; 96375; 99284; J1170; J2405; J2765; J3490; J7030; Q9967; 93010

== ENCOUNTER 2024-01-01 12:33 | Emergency (ER) | payer BC ==
[2024-01-01] MEDS: Sodium Chloride 0.9% 10 ML Syringe FLUSH PRN (13:07)
[2024-01-01] MEDS: Ondansetron 4 MG Tab.DIS PO STA (13:07)
[2024-01-01 13:34] LABS: BASOPHILS PERCENT AUTO 0.2 % (0.0-1.0); EOSINOPHILS ABSOLUTE AUTO 0.2 K/mm3 (0.0-0.4); HEMOGLOBIN 14.5 gm/dl (14.0-18.0); IMMATURE GRAN ABSOLUTE AUTO 0.09 K/mm3 (0.00-0.05); IMMATURE GRAN PERCENT AUTO 0.5 % (0.0-0.4); LYMPHOCYTES ABSOLUTE AUTO 0.5 K/mm3 (1.0-4.8); LYMPHOCYTES PERCENT AUTO 2.4 % (24.0-44.0); MEAN CORPUSCULAR HEMOGLOBIN 30.4 pg (28.0-32.0); MEAN CORPUSCULAR HGB CONC 35.4 g/dl (32.0-36.0); MEAN PLATELET VOLUME 9.6 fl (9.4-12.4); MONOCYTES ABSOLUTE AUTO 1.1 K/mm3 (0.0-0.8); MONOCYTES PERCENT AUTO 5.8 % (0.0-8.0); NEUTROPHILS ABSOLUTE AUTO 17.5 K/mm3 (1.8-7.7); NEUTROPHILS PERCENT AUTO 90.1 % (41.0-71.0); PLATELET COUNT,PLT 362 K/mm3 (150-400); RED BLOOD CELL COUNT 4.77 M/mm3 (4.52-5.90); WHITE BLOOD CELL COUNT,WBC 19.35 K/mm3 (3.9-11.3)
[2024-01-01 13:54] LABS: A/G RATIO 0.9 (1-2); ALBUMIN 4.2 g/dl (3.4-5.0); ANION GAP 20.1 (5-15); BILIRUBIN TOTAL 2.1 mg/dL (0.2-1.0); C-REACTIVE PROTEIN 3.2 mg/dL (<1.0); CREATININE 2.3 mg/dL (0.7-1.3); EST CRCL DRUG DOSING (CG) 31.43 mL/min; POTASSIUM,K 4.1 mEq/L (3.5-5.1); PROTEIN TOTAL,TP 8.8 g/dl (6.4-8.2)
[2024-01-01] MEDS: Sodium Chloride 0.9% 1,000 ML IV STA ×3 (14:22→17:46)
[2024-01-01] MEDS: HYDROmorphone 0.5 MG/0.5 ML Syringe IVPUSH ONE ×2 (14:22→22:57)
[2024-01-01] MEDS: Ondansetron 4 MG/2 ML SDV IVPUSH ONE (14:22)
[2024-01-01 16:11] LABS: APPEARANCE,URINE CLEAR (Clear); BILIRUBIN,URINE NEGATIVE (Negative); COLOR,URINE YELLOW (Yellow); GLUCOSE,URINE 1+ (Negative); KETONES,URINE 1+ (Negative); LEUKOCYTE ESTERASE,URINE NEGATIVE (Negative); NITRITE,URINE NEGATIVE (Negative); OCCULT BLOOD,URINE 1+ (Negative); PH,URINE 6.5 (5.0-8.0); PROTEIN,URINE 2+ (Negative); UROBILINOGEN,URINE 0.2 (0.2-1.0)
[2024-01-01 16:46] LABS: CORONAVIRUS COVID-19 NAA NEGATIVE (NEGATIVE); INFLUENZA A NAA NEGATIVE (NEGATIVE); RESPIRATORY SYNCYTIAL VIR NAA NEGATIVE (NEGATIVE)
[2024-01-01 16:49] LABS: BACTERIA,URINE FEW /hpf (FEW); MUCUS,URINE FEW /hpf (FEW); SQUAMOUS EPITHELIAL CELLS,UR 0-5 /hpf (0-5); WBC,URINE 0-5 /hpf (0-5)
[2024-01-01] MEDS: Metoclopramide 10 MG/2 ML SDV IVPUSH ONE (17:32)
[2024-01-01 18:23] LABS: ANION GAP 18.8 (5-15); BUN/CREATININE RATIO 12.4 (14-18); CALCIUM 9.1 mg/dL (8.5-10.1); CREATININE 1.7 mg/dL (0.7-1.3); EST CRCL DRUG DOSING (CG) 42.53 mL/min; POTASSIUM,K 3.8 mEq/L (3.5-5.1)
[2024-01-01] MEDS: Metoprolol Tartrate 5 MG/5 ML SDV IVPUSH ONE (19:25)
[2024-01-01] MEDS: diphenhydrAMINE 50 MG/ML SDV IVPUSH ONE ×2 (19:27→22:57)
[2024-01-01] MEDS: Promethazine 25 MG in Sodium Chloride 0.9% 50 ML IV ONE (19:27)
[2024-01-01] MEDS: LORazepam 2 MG/ML SDV IVPUSH ONE (22:07)
[2024-01-01] MEDS: Lactated Ringers 1,000 ML IV SCH (22:09)
[2024-01-01] MEDS: Piperacillin/Tazobactam 4.5 GM in Sodium Chloride 0.9% 100 ML IV ONE (23:23)
[2024-01-02] MEDS: LORazepam 2 MG/ML SDV IVPUSH ONE (03:15)
[2024-01-02] MEDS: Gabapentin 300 MG Cap PO ONE (04:03)
[2024-01-02] MEDS: Haloperidol Lactate 5 MG/ML SDV IVPUSH STA ×2 (04:34→05:05)
[2024-01-02] MEDS: Piperacillin/Tazobactam 4.5 GM in Sodium Chloride 0.9% 100 ML IV SCH (05:18)
[2024-01-02 07:06] LABS: BASOPHILS PERCENT AUTO 0.1 % (0.0-1.0); EOSINOPHILS PERCENT AUTO 0.2 % (0.0-6.0); HEMATOCRIT 39.3 % (42.0-52.0); HEMOGLOBIN 13.8 gm/dl (14.0-18.0); IMMATURE GRAN ABSOLUTE AUTO 0.08 K/mm3 (0.00-0.05); IMMATURE GRAN PERCENT AUTO 0.4 % (0.0-0.4); LYMPHOCYTES ABSOLUTE AUTO 0.9 K/mm3 (1.0-4.8); LYMPHOCYTES PERCENT AUTO 4.5 % (24.0-44.0); MEAN CORPUSCULAR HEMOGLOBIN 30.8 pg (28.0-32.0); MEAN CORPUSCULAR HGB CONC 35.1 g/dl (32.0-36.0); MEAN CORPUSCULAR VOLUME 87.7 fl (83.0-99.0); MEAN PLATELET VOLUME 9.5 fl (9.4-12.4); MONOCYTES ABSOLUTE AUTO 1.4 K/mm3 (0.0-0.8); MONOCYTES PERCENT AUTO 7.3 % (0.0-8.0); NEUTROPHILS ABSOLUTE AUTO 17.2 K/mm3 (1.8-7.7); NEUTROPHILS PERCENT AUTO 87.5 % (41.0-71.0); PLATELET COUNT,PLT 304 K/mm3 (150-400); RED BLOOD CELL COUNT 4.48 M/mm3 (4.52-5.90); WHITE BLOOD CELL COUNT,WBC 19.64 K/mm3 (3.9-11.3)
[2024-01-02 07:27] LABS: A/G RATIO 0.9 (1-2); ALBUMIN 3.6 g/dl (3.4-5.0); ANION GAP 16.6 (5-15); BILIRUBIN TOTAL 1.9 mg/dL (0.2-1.0); BUN/CREATININE RATIO 15.7 (14-18); C-REACTIVE PROTEIN 5.1 mg/dL (<1.0); CALCIUM 8.6 mg/dL (8.5-10.1); CREATININE 1.4 mg/dL (0.7-1.3); EST CRCL DRUG DOSING (CG) 51.64 mL/min; POTASSIUM,K 3.6 mEq/L (3.5-5.1); PROTEIN TOTAL,TP 7.7 g/dl (6.4-8.2)
[2024-01-02] MEDS: Ondansetron 4 MG/2 ML SDV IVPUSH ONE (09:07)
[2024-01-02] MEDS: Aspirin 81 MG Tab.Chew PO ONE (09:07)
[2024-01-02] MEDS: Lactated Ringers 1,000 ML IV SCH (09:07)
[2024-01-02] MEDS ORDERED: Sodium Chloride 0.9% 100 ML IV SCH (10:30)
[2024-01-02] MEDS: Sodium Chloride 0.9% 10 ML Syringe FLUSH PRN (10:40)
[2024-01-02] MEDS: Iopamidol 755 Mg/ML 100 ML Bottle IVPUSH ONE (10:40)
[2024-01-02] MEDS: Pantoprazole 40 MG Vial IVPUSH ONE (12:45)
== END 2024-01-02 13:00 ==
LOC: JD.ED 12:33
DX: A41.9 Sepsis, unspecified organism (principal); K20.90 Esophagitis, unspecified without bleeding; E11.9 Type 2 diabetes mellitus without complications; R11.14 Bilious vomiting; R33.9 Retention of urine, unspecified; R79.89 Other specified abnormal findings of blood chemistry; I10 Essential (primary) hypertension; Z86.16 Personal history of COVID-19; Z79.4 Long term (current) use of insulin; Z79.899 Other long term (current) drug therapy
CPT/HCPCS: 0241U; 36415; 51702; 70450; 71045; 71275; 74176; 80048; 80053; 81001; 82947; 83605; 83690; 84484; 85025; 86140; 87040; 93005; 96361; 96365; 96366; 96368; 96375; 96376; 99285; A9270; C9113; J1170; J1200; J1630; J2060; J2405; J2543; J2550; J2765; J3490; J7030; J7120; Q9967

== ENCOUNTER 2025-04-16 13:35 | Inpatient (IN) | payer MEDICARE, OTHER ==
[2025-04-16] MEDS: Sodium Chloride 0.9% 1,000 ML IV ONE (14:59)
[2025-04-16] MEDS: Metoclopramide 10 MG/2 ML SDV IVPUSH ONE (14:59)
[2025-04-16 15:08] LABS: BASOPHILS PERCENT AUTO 0.2 % (0.0-1.0); EOSINOPHILS ABSOLUTE AUTO 0.2 K/mm3 (0.0-0.4); EOSINOPHILS PERCENT AUTO 1.4 % (0.0-6.0); HEMOGLOBIN 12.2 gm/dl (14.0-18.0); IMMATURE GRAN ABSOLUTE AUTO 0.04 K/mm3 (0.00-0.05); IMMATURE GRAN PERCENT AUTO 0.4 % (0.0-0.4); LYMPHOCYTES ABSOLUTE AUTO 0.7 K/mm3 (1.0-4.8); LYMPHOCYTES PERCENT AUTO 6.9 % (24.0-44.0); MEAN CORPUSCULAR HEMOGLOBIN 30.6 pg (28.0-32.0); MEAN CORPUSCULAR HGB CONC 34.9 g/dl (32.0-36.0); MEAN CORPUSCULAR VOLUME 87.7 fl (83.0-99.0); MEAN PLATELET VOLUME 10.1 fl (9.4-12.4); MONOCYTES PERCENT AUTO 8.9 % (0.0-8.0); NEUTROPHILS ABSOLUTE AUTO 8.8 K/mm3 (1.8-7.7); NEUTROPHILS PERCENT AUTO 82.2 % (41.0-71.0); PLATELET COUNT,PLT 323 K/mm3 (150-400); RED BLOOD CELL COUNT 3.99 M/mm3 (4.52-5.90); WHITE BLOOD CELL COUNT,WBC 10.68 K/mm3 (3.9-11.3)
[2025-04-16 15:41] LABS: A/G RATIO 0.6 (1-2); ALBUMIN 2.6 g/dl (3.4-5.0); ANION GAP 13.2 (5-15); BUN/CREATININE RATIO 30.8 (14-18); CALCIUM 8.8 mg/dL (8.5-10.1); CREATININE 1.3 mg/dL (0.7-1.3); EST CRCL DRUG DOSING (CG) 57.71 mL/min; MAGNESIUM 1.7 mg/dL (1.8-2.4); PROTEIN TOTAL,TP 6.8 g/dl (6.4-8.2)
[2025-04-16 15:44] LABS: POTASSIUM,K 3.2 mEq/L (3.5-5.1)
[2025-04-16] MEDS ORDERED: Acetaminophen 325 MG Tab PO PRN (16:30)
[2025-04-16 16:43] LABS: INR 1.18; PROTHROMBIN TIME 12.4 SECONDS (9.7-12.0)
[2025-04-16 16:44] LABS: PTT,PARTIAL THROMBOPLSTIN TIME 29.7 SECONDS (21.7-31.4)
[2025-04-16 17:04] LABS: LACTIC ACID 0.9 mmol/L (0.4-2.0)
[2025-04-16] MEDS: Ertapenem 1 GM in Sodium Chloride 0.9% 50 ML IV SCH (18:24)
[2025-04-16] MEDS: Insulin Lispro 100 Unit/ML 3 ML KwikPen SUBCUT SCH (18:30)
[2025-04-16] MEDS: DAPTOmycin 650 MG in Sodium Chloride 0.9% 50 ML IV SCH (19:42)
[2025-04-16] MEDS: Potassium Chloride 20 MEQ Tab.ER PO ONE (20:21)
[2025-04-16 22:59] LABS: APPEARANCE,URINE CLEAR (Clear); BILIRUBIN,URINE 1+ (Negative); COLOR,URINE YELLOW (Yellow); GLUCOSE,URINE NEGATIVE (Negative); KETONES,URINE 1+ (Negative); LEUKOCYTE ESTERASE,URINE NEGATIVE (Negative); NITRITE,URINE NEGATIVE (Negative); OCCULT BLOOD,URINE 2+ (Negative); PROTEIN,URINE 3+ (Negative); UROBILINOGEN,URINE 0.2 (0.2-1.0)
[2025-04-16 23:17] LABS: AMORPHOUS SEDIMENT,URINE FEW /hpf (NOT SEEN); BACTERIA,URINE FEW /hpf (FEW); EPITHELIAL CELLS,URINE 0-5 /hpf (0-5); HYALINE CASTS,URINE 0-5 /lpf (0-5); MUCUS,URINE FEW /hpf (FEW); WBC,URINE 0-5 /hpf (0-5)
[2025-04-17 04:49] LABS: BASOPHILS PERCENT AUTO 0.3 % (0.0-1.0); EOSINOPHILS ABSOLUTE AUTO 0.2 K/mm3 (0.0-0.4); EOSINOPHILS PERCENT AUTO 1.6 % (0.0-6.0); HEMATOCRIT 32.9 % (42.0-52.0); HEMOGLOBIN 11.5 gm/dl (14.0-18.0); IMMATURE GRAN ABSOLUTE AUTO 0.05 K/mm3 (0.00-0.05); IMMATURE GRAN PERCENT AUTO 0.4 % (0.0-0.4); LYMPHOCYTES ABSOLUTE AUTO 1.1 K/mm3 (1.0-4.8); LYMPHOCYTES PERCENT AUTO 9.9 % (24.0-44.0); MEAN CORPUSCULAR HEMOGLOBIN 30.3 pg (28.0-32.0); MEAN CORPUSCULAR VOLUME 86.6 fl (83.0-99.0); MEAN PLATELET VOLUME 10.1 fl (9.4-12.4); MONOCYTES ABSOLUTE AUTO 1.2 K/mm3 (0.0-0.8); MONOCYTES PERCENT AUTO 10.5 % (0.0-8.0); NEUTROPHILS PERCENT AUTO 77.3 % (41.0-71.0); PLATELET COUNT,PLT 439 K/mm3 (150-400); WHITE BLOOD CELL COUNT,WBC 11.57 K/mm3 (3.9-11.3)
[2025-04-17 05:17] LABS: A/G RATIO 0.6 (1-2); ALBUMIN 2.3 g/dl (3.4-5.0); ANION GAP 9.5 (5-15); BILIRUBIN TOTAL 0.8 mg/dL (0.2-1.0); C-REACTIVE PROTEIN 2.35 mg/dL (<0.30); EST CRCL DRUG DOSING (CG) 75.03 mL/min; PROTEIN TOTAL,TP 5.9 g/dl (6.4-8.2)
[2025-04-17] MEDS: 50% Dextrose in Water 50 ML Syringe IVPUSH PRN (05:21)
[2025-04-17 05:29] LABS: POTASSIUM,K 2.5 mEq/L (3.5-5.1)
[2025-04-17] MEDS: Potassium Chloride 20 MEQ Tab.ER PO ONE (05:45)
[2025-04-17] MEDS: Potassium Chloride 10 MEQ in Premix Bag 1 BAG IV SCH (05:47)
[2025-04-17] MEDS: Sodium Chloride 0.9% 1,000 ML IV SCH (08:02)
[2025-04-17] MEDS: Magnesium Sulf/Wat 4 GM/50 mL 4 GM in Premix Bag 1 BAG IV ONE (08:02)
[2025-04-17] MEDS: Enoxaparin 40 MG/0.4 ML Syringe SUBCUT SCH (13:08)
[2025-04-17] MEDS: Tamsulosin 0.4 MG Cap.ER PO SCH (18:06)
[2025-04-17] MEDS: Gabapentin 300 MG Cap PO SCH (20:00)
[2025-04-18 04:51] LABS: BASOPHILS PERCENT AUTO 0.3 % (0.0-1.0); EOSINOPHILS ABSOLUTE AUTO 0.3 K/mm3 (0.0-0.4); EOSINOPHILS PERCENT AUTO 2.7 % (0.0-6.0); HEMATOCRIT 30.3 % (42.0-52.0); HEMOGLOBIN 10.2 gm/dl (14.0-18.0); IMMATURE GRAN ABSOLUTE AUTO 0.03 K/mm3 (0.00-0.05); IMMATURE GRAN PERCENT AUTO 0.3 % (0.0-0.4); LYMPHOCYTES ABSOLUTE AUTO 1.2 K/mm3 (1.0-4.8); LYMPHOCYTES PERCENT AUTO 12.7 % (24.0-44.0); MEAN CORPUSCULAR HEMOGLOBIN 30.4 pg (28.0-32.0); MEAN CORPUSCULAR HGB CONC 33.7 g/dl (32.0-36.0); MEAN CORPUSCULAR VOLUME 90.2 fl (83.0-99.0); MEAN PLATELET VOLUME 10.1 fl (9.4-12.4); MONOCYTES PERCENT AUTO 10.6 % (0.0-8.0); NEUTROPHILS ABSOLUTE AUTO 7.1 K/mm3 (1.8-7.7); NEUTROPHILS PERCENT AUTO 73.4 % (41.0-71.0); PLATELET COUNT,PLT 395 K/mm3 (150-400); RED BLOOD CELL COUNT 3.36 M/mm3 (4.52-5.90)
[2025-04-18 05:30] LABS: A/G RATIO 0.6 (1-2); BILIRUBIN TOTAL 0.6 mg/dL (0.2-1.0); C-REACTIVE PROTEIN 2.02 mg/dL (<0.30); CALCIUM 7.7 mg/dL (8.5-10.1); EST CRCL DRUG DOSING (CG) 75.03 mL/min; MAGNESIUM 1.6 mg/dL (1.8-2.4); PROTEIN TOTAL,TP 5.3 g/dl (6.4-8.2)
[2025-04-18 06:30] LABS: ANION GAP 6.4 (5-15); POTASSIUM,K 3.4 mEq/L (3.5-5.1)
[2025-04-18] MEDS: Pantoprazole 40 MG Tab.CR PO SCH (06:55)
[2025-04-18] MEDS: Potassium Chloride 20 MEQ Tab.ER PO ONE (08:01)
[2025-04-18] MEDS: Allopurinol 100 MG Tab PO SCH (08:01)
[2025-04-18] MEDS: Finasteride 5 MG Tab PO SCH (08:01)
[2025-04-18] MEDS: amLODIPine 5 MG Tab PO SCH (08:01)
[2025-04-18] MEDS: Magnesium Sulf/Wat 4 GM/50 mL 4 GM in Premix Bag 1 BAG IV ONE (08:01)
[2025-04-18] MEDS ORDERED: Sennosides/Docusate Sodium 50-8.6 MG Tab PO PRN (12:29)
[2025-04-18] MEDS: Insulin Glargine,Human Rec. Analog 100 Units/ML 3 ML Pen SUBCUT SCH (12:35)
[2025-04-19 05:46] LABS: ANION GAP 6.2 (5-15); CALCIUM 7.8 mg/dL (8.5-10.1); EST CRCL DRUG DOSING (CG) 75.03 mL/min; MAGNESIUM 1.7 mg/dL (1.8-2.4); PHOSPHORUS 1.9 mg/dL (2.6-4.7); POTASSIUM,K 4.2 mEq/L (3.5-5.1)
[2025-04-19] MEDS ORDERED: Sodium Phosphate 30 MMOLE in Sodium Chloride 0.9% 250 ML IV ONE ×2 (10:30→13:30)
[2025-04-19] MEDS: Magnesium Sulf/Wat 4 GM/50 mL 4 GM in Premix Bag 1 BAG IV ONE (10:43)
[2025-04-19] MEDS: Sodium Phosphate 30 MMOLE in Sodium Chloride 0.9% 250 ML IV ONE (10:43)
[2025-04-19] MEDS: Ertapenem 1 GM in Sodium Chloride 0.9% 50 ML IV ONE (14:53)
[2025-04-19] MEDS: DAPTOmycin 650 MG in Sodium Chloride 0.9% 50 ML IV ONE (14:53)
== END 2025-04-19 16:45 | disposition home or self-care (01) | DRG 641 ==
LOC: JD.ED 13:35 → JD.MS 16:30
PROVIDERS: ADMIT Family Medicine; ATTEND Student in an Organized Health Care Education/Training Program
DX: E87.6 Hypokalemia (principal); M86.171 Other acute osteomyelitis, right ankle and foot; E11.9 Type 2 diabetes mellitus without complications; M86.671 Other chronic osteomyelitis, right ankle and foot; E83.42 Hypomagnesemia; E83.39 Other disorders of phosphorus metabolism; I10 Essential (primary) hypertension; H54.7 Unspecified visual loss; M19.90 Unspecified osteoarthritis, unspecified site; F32.A Depression, unspecified; E11.40 Type 2 diabetes mellitus with diabetic neuropathy, unspecified; E78.5 Hyperlipidemia, unspecified; K21.9 Gastro-esophageal reflux disease without esophagitis; E11.69 Type 2 diabetes mellitus with other specified complication; E11.621 Type 2 diabetes mellitus with foot ulcer; L97.519 Non-pressure chronic ulcer of other part of right foot with unspecified severity; R53.81 Other malaise; Z74.1 Need for assistance with personal care; N40.1 Benign prostatic hyperplasia with lower urinary tract symptoms; D64.9 Anemia, unspecified; R33.8 Other retention of urine; Z79.4 Long term (current) use of insulin; Z79.899 Other long term (current) drug therapy; Z86.16 Personal history of COVID-19; Z85.038 Personal history of other malignant neoplasm of large intestine; T36.8X5A Adverse effect of other systemic antibiotics, initial encounter
CPT/HCPCS: 36415; 51702; 80048; 80053; 81001; 82550; 82947; 83605; 83735; 84100; 84132; 85025; 85610; 85730; 86140; 87086; 96361; 96374; 97110-GP; 97116-GP; 97161-GP; 97162-GP; 97530-GP; 97597-GP; 99222; 99232; 99239; 99285; 99285-25; A9270-GY; J0878; J1335; J1650; J1815; J1815-GY; J2765; J3475; J3480; J3490; J7030

== ENCOUNTER 2025-04-20 02:34 | Emergency (ER) | payer MEDICARE | END 2025-04-20 03:30 | disposition home or self-care (01) | LOC: JD.ED 02:34 | DX: Z53.21 Procedure and treatment not carried out due to patient leaving prior to being seen by health care provider (principal) ==

== ENCOUNTER 2025-06-10 11:29 | Inpatient (IN) | payer BC, MEDICARE, OTHER ==
[2025-06-10] MEDS: Clindamycin Phosphate in D5W 900 MG in Premix Bag 1 BAG IV ONE (11:56)
[2025-06-10 12:12] LABS: BASOPHILS ABSOLUTE AUTO 0.1 K/mm3 (0.0-0.2); BASOPHILS PERCENT AUTO 0.2 % (0.0-1.0); EOSINOPHILS ABSOLUTE AUTO 0.0 K/mm3 (0.0-0.4); EOSINOPHILS PERCENT AUTO 0.1 % (0.0-6.0); IMMATURE GRAN ABSOLUTE AUTO 0.42 K/mm3 (0.00-0.05); IMMATURE GRAN PERCENT AUTO 1.8 % (0.0-0.4); LYMPHOCYTES ABSOLUTE AUTO 0.3 K/mm3 (1.0-4.8); LYMPHOCYTES PERCENT AUTO 1.4 % (24.0-44.0); MEAN PLATELET VOLUME 8.4 fl (9.4-12.4); MONOCYTES ABSOLUTE AUTO 0.8 K/mm3 (0.0-0.8); MONOCYTES PERCENT AUTO 3.6 % (0.0-8.0); NEUTROPHILS ABSOLUTE AUTO 21.6 K/mm3 (1.8-7.7); NEUTROPHILS PERCENT AUTO 92.9 % (41.0-71.0); NRBC ABSOLUTE 0.02 (0.00-0.02); NRBC PERCENT 0.1 % (0.0-0.2); PLATELET COUNT,PLT 665 K/mm3 (150-400); RED BLOOD CELL COUNT 3.19 M/mm3 (4.52-5.90); WHITE BLOOD CELL COUNT,WBC 23.19 K/mm3 (3.9-11.3)
[2025-06-10 12:31] LABS: INR 1.18
[2025-06-10 12:45] LABS: BASE EXCESS ARTERIAL -1.4 (-2-2.0); BICARBONATE,ARTERIAL 22 meq/L (22.0-26.0); O2 SATURATION ARTERIAL 97.0 % (96.0-97.0); PCO2 ARTERIAL 31.0 mmHg (35.0-45.0); PO2 ARTERIAL 72.0 mmHg (80.0-100.0)
[2025-06-10 12:54] LABS: A/G RATIO 0.4 (1-2); ALANINE AMINOTRANSFERASE,ALT 22.0 U/L (16-63); ASPARTATE AMNIOTRANSFERASE,AST 47.0 U/L (15-37); BILIRUBIN TOTAL 0.9 mg/dL (0.2-1.0); BLOOD UREA NITROGEN,BUN 24.0 mg/dL (7-18); CARBON DIOXIDE,CO2 25.0 mEq/L (21-32); CHLORIDE,CL 92.0 mEq/L (98-107); CREATINE KINASE,CK 403.0 U/L (39-308); CREATININE 1.3 mg/dL (0.7-1.3); EST CRCL DRUG DOSING (CG) 57.71 mL/min; ESTIMATED GFR 61.0 mL/min (>60); GLUCOSE RANDOM 211.0 mg/dL (70-99); POTASSIUM,K 5.7 mEq/L (3.5-5.1); PROTEIN TOTAL,TP 7.0 g/dl (6.4-8.2); SODIUM,NA 127.0 mEq/L (136-145)
[2025-06-10 12:56] LABS: ETHANOL BLOOD MEDICAL 0.0 gm% (0.00)
[2025-06-10] MEDS: Iopamidol 612 MG/ML 30 ML SDV IVPUSH ONE (12:58)
[2025-06-10] MEDS: Iopamidol 612 MG/ML 100 ML Bottle IVPUSH ONE (12:58)
[2025-06-10 13:57] LABS: APPEARANCE,URINE CLOUDY (Clear); GLUCOSE,URINE NEGATIVE (Negative); OCCULT BLOOD,URINE 2+ (Negative)
[2025-06-10 14:39] LABS: SQUAMOUS EPITHELIAL CELLS,UR 0-5 /hpf (0-5)
[2025-06-10 14:40] LABS: WBC CLUMPS,URINE RARE /hpf (NOT SEEN)
[2025-06-10 14:43] LABS: BUPRENORPHINE SCREEN,URINE NEGATIVE (CUTOFF=10); METHADONE SCREEN, URINE NEGATIVE (CUT0FF=200); METHAMPHETAMINES SCREEN, URINE NEGATIVE (CUTOFF=500); OXYCODONE SCREEN,URINE NEGATIVE (CUT0FF=100); THC SCREEN,URINE 20 NG/ML PRESUMPTIVE POSITIVE (CUTOFF=50)
[2025-06-10 15:04] LABS: AMPHETAMINES SCREEN, URINE NEGATIVE (CUTOFF=500)
[2025-06-10] MEDS ORDERED: Ondansetron 4 MG/2 ML SDV IV PRN (15:18)
[2025-06-10] MEDS: VANCOmycin 2 GM/400 ML 2 GM in Premix Bag 1 BAG IV ONE (15:58)
[2025-06-10] MEDS: Insulin Lispro 100 Unit/ML 3 ML KwikPen SUBCUT SCH (17:54)
[2025-06-10 20:36] LABS: BLOOD UREA NITROGEN,BUN 24.0 mg/dL (7-18); CARBON DIOXIDE,CO2 22.0 mEq/L (21-32); CHLORIDE,CL 97.0 mEq/L (98-107); CREATININE 1.3 mg/dL (0.7-1.3); EST CRCL DRUG DOSING (CG) 57.71 mL/min; ESTIMATED GFR 61.0 mL/min (>60); GLUCOSE RANDOM 186.0 mg/dL (70-99); POTASSIUM,K 4.9 mEq/L (3.5-5.1); SODIUM,NA 127.0 mEq/L (136-145)
[2025-06-11 04:35] LABS: MEAN PLATELET VOLUME 8.6 fl (9.4-12.4); NRBC ABSOLUTE 0.00 (0.00-0.02); NRBC PERCENT 0.0 % (0.0-0.2); PLATELET COUNT,PLT 552 K/mm3 (150-400); RED BLOOD CELL COUNT 2.89 M/mm3 (4.52-5.90); WHITE BLOOD CELL COUNT,WBC 13.68 K/mm3 (3.9-11.3)
[2025-06-11 05:07] LABS: A/G RATIO 0.5 (1-2); ALANINE AMINOTRANSFERASE,ALT 19.0 U/L (16-63); ASPARTATE AMNIOTRANSFERASE,AST 34.0 U/L (15-37); BILIRUBIN TOTAL 0.6 mg/dL (0.2-1.0); BLOOD UREA NITROGEN,BUN 21.0 mg/dL (7-18); CARBON DIOXIDE,CO2 22.0 mEq/L (21-32); CHLORIDE,CL 99.0 mEq/L (98-107); CREATINE KINASE,CK 166.0 U/L (39-308); CREATININE 1.2 mg/dL (0.7-1.3); EST CRCL DRUG DOSING (CG) 62.52 mL/min; ESTIMATED GFR 67.0 mL/min (>60); GLUCOSE RANDOM 173.0 mg/dL (70-99); POTASSIUM,K 4.5 mEq/L (3.5-5.1); PROTEIN TOTAL,TP 5.9 g/dl (6.4-8.2); SODIUM,NA 131.0 mEq/L (136-145); VANCOMYCIN RANDOM 17.8 ug/mL
[2025-06-11] MEDS: Magnesium Sulfate 2 GM/50 mL 2 GM in Premix Bag 1 BAG IV ONE (06:35)
[2025-06-11] MEDS: Insulin Glargine,Human Rec. Analog 100 Units/ML 3 ML Pen SUBCUT SCH (08:55)
[2025-06-11] MEDS: Nystatin Topical Powder 15 GM Bottle TOP SCH (11:41)
[2025-06-11] MEDS ORDERED: VANCOmycin 1.5 GM/300 ML 1.5 GM in Premix Bag 1 BAG IV SCH (16:00)
[2025-06-12 04:34] LABS: MEAN PLATELET VOLUME 8.4 fl (9.4-12.4); NRBC ABSOLUTE 0.00 (0.00-0.02); NRBC PERCENT 0.0 % (0.0-0.2); PLATELET COUNT,PLT 530 K/mm3 (150-400); RED BLOOD CELL COUNT 2.58 M/mm3 (4.52-5.90); WHITE BLOOD CELL COUNT,WBC 8.84 K/mm3 (3.9-11.3)
[2025-06-12 05:08] LABS: A/G RATIO 0.4 (1-2); ALANINE AMINOTRANSFERASE,ALT 16.0 U/L (16-63); ASPARTATE AMNIOTRANSFERASE,AST 25.0 U/L (15-37); BILIRUBIN TOTAL 0.5 mg/dL (0.2-1.0); BLOOD UREA NITROGEN,BUN 16.0 mg/dL (7-18); CARBON DIOXIDE,CO2 23.0 mEq/L (21-32); CHLORIDE,CL 98.0 mEq/L (98-107); CREATINE KINASE,CK 50.0 U/L (39-308); CREATININE 1.1 mg/dL (0.7-1.3); EST CRCL DRUG DOSING (CG) 68.21 mL/min; ESTIMATED GFR 74.0 mL/min (>60); GLUCOSE RANDOM 71.0 mg/dL (70-99); POTASSIUM,K 4.3 mEq/L (3.5-5.1); PROTEIN TOTAL,TP 5.6 g/dl (6.4-8.2); SODIUM,NA 130.0 mEq/L (136-145)
[2025-06-12] MEDS: Magnesium Sulf/Wat 4 GM/50 mL 4 GM in Premix Bag 1 BAG IV ONE (06:52)
[2025-06-13 04:20] LABS: MEAN PLATELET VOLUME 8.4 fl (9.4-12.4); NRBC ABSOLUTE 0.00 (0.00-0.02); NRBC PERCENT 0.0 % (0.0-0.2); PLATELET COUNT,PLT 595 K/mm3 (150-400); RED BLOOD CELL COUNT 2.67 M/mm3 (4.52-5.90); WHITE BLOOD CELL COUNT,WBC 8.38 K/mm3 (3.9-11.3)
[2025-06-13 05:13] LABS: A/G RATIO 0.4 (1-2); ALANINE AMINOTRANSFERASE,ALT 16.0 U/L (16-63); ASPARTATE AMNIOTRANSFERASE,AST 23.0 U/L (15-37); BILIRUBIN TOTAL 0.4 mg/dL (0.2-1.0); BLOOD UREA NITROGEN,BUN 13.0 mg/dL (7-18); CARBON DIOXIDE,CO2 25.0 mEq/L (21-32); CHLORIDE,CL 102.0 mEq/L (98-107); CREATININE 1.0 mg/dL (0.7-1.3); EST CRCL DRUG DOSING (CG) 75.03 mL/min; ESTIMATED GFR 83.0 mL/min (>60); GLUCOSE RANDOM 76.0 mg/dL (70-99); IRON,FE 24.0 ug/dL (65-175); POTASSIUM,K 4.6 mEq/L (3.5-5.1); PROTEIN TOTAL,TP 5.6 g/dl (6.4-8.2); SODIUM,NA 134.0 mEq/L (136-145)
[2025-06-13] MEDS: Magnesium Sulfate 2 GM/50 mL 2 GM in Premix Bag 1 BAG IV ONE (06:49)
[2025-06-13] MEDS: Insulin Glargine,Human Rec. Analog 100 Units/ML 3 ML Pen SUBCUT SCH (08:20)
[2025-06-14 04:28] LABS: MEAN PLATELET VOLUME 8.4 fl (9.4-12.4); NRBC ABSOLUTE 0.00 (0.00-0.02); NRBC PERCENT 0.0 % (0.0-0.2); PLATELET COUNT,PLT 602 K/mm3 (150-400); RED BLOOD CELL COUNT 2.83 M/mm3 (4.52-5.90); WHITE BLOOD CELL COUNT,WBC 8.81 K/mm3 (3.9-11.3)
[2025-06-14 05:38] LABS: A/G RATIO 0.5 (1-2); ALANINE AMINOTRANSFERASE,ALT 20.0 U/L (16-63); ASPARTATE AMNIOTRANSFERASE,AST 31.0 U/L (15-37); BILIRUBIN TOTAL 0.3 mg/dL (0.2-1.0); BLOOD UREA NITROGEN,BUN 12.0 mg/dL (7-18); CARBON DIOXIDE,CO2 27.0 mEq/L (21-32); CHLORIDE,CL 104.0 mEq/L (98-107); CREATININE 0.9 mg/dL (0.7-1.3); EST CRCL DRUG DOSING (CG) 83.36 mL/min; ESTIMATED GFR 94.0 mL/min (>60); GLUCOSE RANDOM 59.0 mg/dL (70-99); POTASSIUM,K 5.0 mEq/L (3.5-5.1); PROTEIN TOTAL,TP 6.0 g/dl (6.4-8.2); SODIUM,NA 137.0 mEq/L (136-145)
[2025-06-14] MEDS: Magnesium Sulf/Wat 4 GM/50 mL 4 GM in Premix Bag 1 BAG IV ONE (06:23)
[2025-06-14] MEDS: Insulin Glargine,Human Rec. Analog 100 Units/ML 3 ML Pen SUBCUT SCH (08:13)
[2025-06-15 05:30] LABS: MEAN PLATELET VOLUME 8.4 fl (9.4-12.4); NRBC ABSOLUTE 0.00 (0.00-0.02); NRBC PERCENT 0.0 % (0.0-0.2); PLATELET COUNT,PLT 633 K/mm3 (150-400); RED BLOOD CELL COUNT 2.80 M/mm3 (4.52-5.90); WHITE BLOOD CELL COUNT,WBC 8.65 K/mm3 (3.9-11.3)
[2025-06-15 05:42] LABS: A/G RATIO 0.5 (1-2); ALANINE AMINOTRANSFERASE,ALT 28.0 U/L (16-63); ASPARTATE AMNIOTRANSFERASE,AST 37.0 U/L (15-37); BILIRUBIN TOTAL 0.3 mg/dL (0.2-1.0); BLOOD UREA NITROGEN,BUN 13.0 mg/dL (7-18); CARBON DIOXIDE,CO2 27.0 mEq/L (21-32); CHLORIDE,CL 103.0 mEq/L (98-107); CREATININE 1.0 mg/dL (0.7-1.3); EST CRCL DRUG DOSING (CG) 75.03 mL/min; ESTIMATED GFR 83.0 mL/min (>60); GLUCOSE RANDOM 85.0 mg/dL (70-99); POTASSIUM,K 5.5 mEq/L (3.5-5.1); PROTEIN TOTAL,TP 6.1 g/dl (6.4-8.2); SODIUM,NA 136.0 mEq/L (136-145)
[2025-06-15 09:33] LABS: BLOOD UREA NITROGEN,BUN 13.0 mg/dL (7-18); CARBON DIOXIDE,CO2 27.0 mEq/L (21-32); CHLORIDE,CL 99.0 mEq/L (98-107); CREATININE 1.1 mg/dL (0.7-1.3); EST CRCL DRUG DOSING (CG) 68.21 mL/min; ESTIMATED GFR 74.0 mL/min (>60); GLUCOSE RANDOM 135.0 mg/dL (70-99); POTASSIUM,K 5.4 mEq/L (3.5-5.1); SODIUM,NA 133.0 mEq/L (136-145)
[2025-06-15] MEDS: Insulin Regular, Human 100 Units/ML 10 ML Vial IV ONE (14:54)
[2025-06-15] MEDS: 50% Dextrose in Water 50 ML Syringe IVPUSH SCH (14:55)
[2025-06-16 05:49] LABS: BLOOD UREA NITROGEN,BUN 15.0 mg/dL (7-18); CARBON DIOXIDE,CO2 26.0 mEq/L (21-32); CHLORIDE,CL 102.0 mEq/L (98-107); CREATININE 1.1 mg/dL (0.7-1.3); EST CRCL DRUG DOSING (CG) 68.21 mL/min; ESTIMATED GFR 74.0 mL/min (>60); GLUCOSE RANDOM 115.0 mg/dL (70-99); PHOSPHORUS 3.9 mg/dL (2.6-4.7); POTASSIUM,K 5.2 mEq/L (3.5-5.1); SODIUM,NA 135.0 mEq/L (136-145)
[2025-06-16] MEDS: Magnesium Sulf/Wat 4 GM/50 mL 4 GM in Premix Bag 1 BAG IV ONE (12:41)
[2025-06-17 05:56] LABS: BLOOD UREA NITROGEN,BUN 18.0 mg/dL (7-18); CARBON DIOXIDE,CO2 24.0 mEq/L (21-32); CHLORIDE,CL 98.0 mEq/L (98-107); CREATININE 1.0 mg/dL (0.7-1.3); EST CRCL DRUG DOSING (CG) 75.03 mL/min; ESTIMATED GFR 83.0 mL/min (>60); GLUCOSE RANDOM 203.0 mg/dL (70-99); POTASSIUM,K 5.3 mEq/L (3.5-5.1); SODIUM,NA 132.0 mEq/L (136-145)
== END 2025-06-17 10:50 | DRG 871 ==
LOC: JD.ED 11:29 → JD.ICU 14:58 → JD.MS 06-15 16:30
PROVIDERS: ADMIT Internal Medicine; ATTEND Family Medicine
PROC: 4A033R1 Measurement of Arterial Saturation, Peripheral, Percutaneous Approach (ICD-10-PCS; principal; 2025-06-10)
PROC: 3E03329 Introduction of Other Anti-infective into Peripheral Vein, Percutaneous Approach (ICD-10-PCS; principal; 2025-06-10)
DX: A41.9 Sepsis, unspecified organism (principal); J18.9 Pneumonia, unspecified organism; J96.01 Acute respiratory failure with hypoxia; E87.1 Hypo-osmolality and hyponatremia; H54.7 Unspecified visual loss; I10 Essential (primary) hypertension; M19.90 Unspecified osteoarthritis, unspecified site; F32.A Depression, unspecified; E11.9 Type 2 diabetes mellitus without complications; D64.9 Anemia, unspecified; N49.2 Inflammatory disorders of scrotum; R60.1 Generalized edema; E88.09 Other disorders of plasma-protein metabolism, not elsewhere classified; R65.20 Severe sepsis without septic shock; R62.7 Adult failure to thrive; N40.0 Benign prostatic hyperplasia without lower urinary tract symptoms; E83.42 Hypomagnesemia; E87.5 Hyperkalemia; E61.1 Iron deficiency; Z79.899 Other long term (current) drug therapy; Z85.048 Personal history of other malignant neoplasm of rectum, rectosigmoid junction, and anus; Z79.4 Long term (current) use of insulin; Z86.16 Personal history of COVID-19
CPT/HCPCS: 36415; 36600; 51702; 71045; 71045-26; 71260; 71260-26; 74177; 74177-26; 80048; 80053; 80202; 80306; 80307; 81001; 82010; 82550; 82728; 82803; 82947; 83540; 83605; 83690; 83735; 83880; 84100; 85025; 85027; 85610; 86850; 86900; 86901; 87040; 87077; 87154; 87186; 87641; 93005; 93010; 93306; 96361; 96365; 96367; 96368; 97110-GO; 97110-GP; 97162-GP; 97166-GO; 97530-GO; 97530-GP; 97535-GO; 99232; 99238; 99285; 99285-25; A9270-GY; J0736; J1650; J1815-GY; J2543; J3372; J3475; J3490; J7030; P9047; Q9967

== ENCOUNTER 2025-07-19 14:09 | Inpatient (IN) | payer MEDICARE ==
[2025-07-19] MEDS ORDERED: Sodium Chloride 0.9% 10 ML Syringe FLUSH PRN (14:43)
[2025-07-19] MEDS: Ondansetron 4 MG/2 ML SDV IVPUSH ONE (15:05)
[2025-07-19 15:44] LABS: MEAN PLATELET VOLUME 10.5 fl (9.4-12.4); NRBC ABSOLUTE 0.00 (0.00-0.02); NRBC PERCENT 0.0 % (0.0-0.2); PLATELET COUNT,PLT 444 K/mm3 (150-400); RED BLOOD CELL COUNT 4.37 M/mm3 (4.52-5.90); WHITE BLOOD CELL COUNT,WBC 20.80 K/mm3 (3.9-11.3)
[2025-07-19] MEDS: Iopamidol 612 MG/ML 100 ML Bottle IVPUSH ONE (15:48)
[2025-07-19] MEDS: Sodium Chloride 0.9% 10 ML Syringe FLUSH ONE (15:48)
[2025-07-19 16:13] LABS: INR 1.02; LACTIC ACID 1.8 mmol/L (0.4-2.0)
[2025-07-19 16:16] LABS: A/G RATIO 0.6 (1-2); ALANINE AMINOTRANSFERASE,ALT 27.0 U/L (16-63); BILIRUBIN TOTAL 1.3 mg/dL (0.2-1.0); BLOOD UREA NITROGEN,BUN 46.0 mg/dL (7-18); CARBON DIOXIDE,CO2 24.0 mEq/L (21-32); CHLORIDE,CL 90.0 mEq/L (98-107); CREATININE 1.2 mg/dL (0.7-1.3); EST CRCL DRUG DOSING (CG) 60.99 mL/min; ESTIMATED GFR 67.0 mL/min (>60); GLUCOSE RANDOM 208.0 mg/dL (70-99); PROTEIN TOTAL,TP 8.1 g/dl (6.4-8.2); SODIUM,NA 129.0 mEq/L (136-145)
[2025-07-19 16:18] LABS: TROPONIN I HIGH SENSITIVITY 128.0 pg/mL (<=76)
[2025-07-19 16:19] LABS: ASPARTATE AMNIOTRANSFERASE,AST 33.0 U/L (15-37); ETHANOL BLOOD MEDICAL 0.0 gm% (0.00); POTASSIUM,K 4.4 mEq/L (3.5-5.1)
[2025-07-19 16:38] LABS: BAND PERCENT MAN 1 % (0-10); BASOPHILS PERCENT MAN 0 (0.2-1.2); EOSINOPHILS PERCENT MAN 0 % (0.8-7.0); LYMPHOCYTES % ATYPICAL MANUAL 0 %; LYMPHOCYTES PERCENT MAN 4 % (20-40); MONOCYTES PERCENT MAN 2 % (2-10)
[2025-07-19 16:41] LABS: PLATELET COUNT ESTIMATE INCREASED
[2025-07-19 16:44] LABS: APPEARANCE,URINE CLEAR (Clear); GLUCOSE,URINE NEGATIVE (Negative); OCCULT BLOOD,URINE 2+ (Negative)
[2025-07-19 17:05] LABS: SQUAMOUS EPITHELIAL CELLS,UR 0-5 /hpf (0-5)
[2025-07-19 18:21] LABS: HEPATITIS C AB NON-REACTIVE (Non-React); HIV RAPID SCREEN RLFX COMFIRM NON-REACTIVE (Non-React)
[2025-07-19] MEDS: Ondansetron 4 MG/2 ML SDV IVPUSH PRN (21:19)
[2025-07-20 05:41] LABS: BASOPHILS ABSOLUTE AUTO 0.0 K/mm3 (0.0-0.2); BASOPHILS PERCENT AUTO 0.1 % (0.0-1.0); EOSINOPHILS ABSOLUTE AUTO 0.0 K/mm3 (0.0-0.4); EOSINOPHILS PERCENT AUTO 0.2 % (0.0-6.0); IMMATURE GRAN ABSOLUTE AUTO 0.05 K/mm3 (0.00-0.05); IMMATURE GRAN PERCENT AUTO 0.3 % (0.0-0.4); LYMPHOCYTES ABSOLUTE AUTO 1.3 K/mm3 (1.0-4.8); LYMPHOCYTES PERCENT AUTO 7.7 % (24.0-44.0); MEAN PLATELET VOLUME 9.5 fl (9.4-12.4); MONOCYTES ABSOLUTE AUTO 1.8 K/mm3 (0.0-0.8); MONOCYTES PERCENT AUTO 10.8 % (0.0-8.0); NEUTROPHILS ABSOLUTE AUTO 13.6 K/mm3 (1.8-7.7); NEUTROPHILS PERCENT AUTO 80.9 % (41.0-71.0); NRBC ABSOLUTE 0.00 (0.00-0.02); NRBC PERCENT 0.0 % (0.0-0.2); PLATELET COUNT,PLT 407 K/mm3 (150-400); RED BLOOD CELL COUNT 4.39 M/mm3 (4.52-5.90); WHITE BLOOD CELL COUNT,WBC 16.74 K/mm3 (3.9-11.3)
[2025-07-20 06:07] LABS: A/G RATIO 0.6 (1-2); ALANINE AMINOTRANSFERASE,ALT 24.0 U/L (16-63); ASPARTATE AMNIOTRANSFERASE,AST 17.0 U/L (15-37); BILIRUBIN TOTAL 1.0 mg/dL (0.2-1.0); BLOOD UREA NITROGEN,BUN 45.0 mg/dL (7-18); CARBON DIOXIDE,CO2 24.0 mEq/L (21-32); CHLORIDE,CL 96.0 mEq/L (98-107); CREATININE 1.3 mg/dL (0.7-1.3); EST CRCL DRUG DOSING (CG) 55.37 mL/min; ESTIMATED GFR 61.0 mL/min (>60); GLUCOSE RANDOM 186.0 mg/dL (70-99); POTASSIUM,K 3.5 mEq/L (3.5-5.1); PROTEIN TOTAL,TP 8.0 g/dl (6.4-8.2); SODIUM,NA 132.0 mEq/L (136-145)
[2025-07-20] MEDS ORDERED: 50% Dextrose in Water 50 ML Syringe IVPUSH PRN (10:07)
[2025-07-20] MEDS: Insulin Lispro 100 Unit/ML 3 ML KwikPen SUBCUT SCH (12:02)
[2025-07-20] MEDS: hydrALAZINE 20 MG/ML SDV IVPUSH ONE (13:01)
[2025-07-20] MEDS ORDERED: hydrALAZINE 20 MG/ML SDV IVPUSH PRN (18:09)
[2025-07-20] MEDS ORDERED: Labetalol 100 MG/20 ML MDV IVPUSH PRN (18:09)
[2025-07-20] MEDS: LORazepam 2 MG/ML SDV IVPUSH PRN (21:10)
[2025-07-20] MEDS: Nystatin Topical Powder 15 GM Bottle TOP SCH (21:15)
[2025-07-21 05:59] LABS: BASOPHILS ABSOLUTE AUTO 0.0 K/mm3 (0.0-0.2); BASOPHILS PERCENT AUTO 0.4 % (0.0-1.0); EOSINOPHILS ABSOLUTE AUTO 0.1 K/mm3 (0.0-0.4); EOSINOPHILS PERCENT AUTO 0.9 % (0.0-6.0); IMMATURE GRAN ABSOLUTE AUTO 0.03 K/mm3 (0.00-0.05); IMMATURE GRAN PERCENT AUTO 0.3 % (0.0-0.4); LYMPHOCYTES ABSOLUTE AUTO 1.0 K/mm3 (1.0-4.8); LYMPHOCYTES PERCENT AUTO 10.4 % (24.0-44.0); MEAN PLATELET VOLUME 9.9 fl (9.4-12.4); MONOCYTES ABSOLUTE AUTO 0.7 K/mm3 (0.0-0.8); MONOCYTES PERCENT AUTO 7.3 % (0.0-8.0); NEUTROPHILS ABSOLUTE AUTO 8.0 K/mm3 (1.8-7.7); NEUTROPHILS PERCENT AUTO 80.7 % (41.0-71.0); NRBC ABSOLUTE 0.00 (0.00-0.02); NRBC PERCENT 0.0 % (0.0-0.2); PLATELET COUNT,PLT 395 K/mm3 (150-400); RED BLOOD CELL COUNT 3.83 M/mm3 (4.52-5.90); WHITE BLOOD CELL COUNT,WBC 9.88 K/mm3 (3.9-11.3)
[2025-07-21 06:15] LABS: BLOOD UREA NITROGEN,BUN 32.0 mg/dL (7-18); CARBON DIOXIDE,CO2 25.0 mEq/L (21-32); CHLORIDE,CL 99.0 mEq/L (98-107); CREATININE 1.0 mg/dL (0.7-1.3); EST CRCL DRUG DOSING (CG) 72.35 mL/min; ESTIMATED GFR 83.0 mL/min (>60); GLUCOSE RANDOM 146.0 mg/dL (70-99); PHOSPHORUS 2.8 mg/dL (2.6-4.7); POTASSIUM,K 3.2 mEq/L (3.5-5.1); SODIUM,NA 136.0 mEq/L (136-145)
[2025-07-21] MEDS: Potassium Phosphates 30 MMOLE in Sodium Chloride 0.9% 500 ML IV ONE (09:29)
[2025-07-21] MEDS: Potassium Chloride 20 MEQ Tab.ER PO ONE (12:49)
[2025-07-21] MEDS: Magnesium Sulf/Wat 4 GM/50 mL 4 GM in Premix Bag 1 BAG IV ONE (12:49)
[2025-07-21] MEDS ORDERED: Sennosides/Docusate Sodium 50-8.6 MG Tab PO PRN (12:54)
[2025-07-22 05:33] LABS: BASOPHILS ABSOLUTE AUTO 0.0 K/mm3 (0.0-0.2); BASOPHILS PERCENT AUTO 0.5 % (0.0-1.0); EOSINOPHILS ABSOLUTE AUTO 0.3 K/mm3 (0.0-0.4); EOSINOPHILS PERCENT AUTO 3.5 % (0.0-6.0); IMMATURE GRAN ABSOLUTE AUTO 0.03 K/mm3 (0.00-0.05); IMMATURE GRAN PERCENT AUTO 0.3 % (0.0-0.4); LYMPHOCYTES ABSOLUTE AUTO 1.0 K/mm3 (1.0-4.8); LYMPHOCYTES PERCENT AUTO 11.8 % (24.0-44.0); MEAN PLATELET VOLUME 9.4 fl (9.4-12.4); MONOCYTES ABSOLUTE AUTO 0.8 K/mm3 (0.0-0.8); MONOCYTES PERCENT AUTO 9.7 % (0.0-8.0); NEUTROPHILS ABSOLUTE AUTO 6.4 K/mm3 (1.8-7.7); NEUTROPHILS PERCENT AUTO 74.2 % (41.0-71.0); NRBC ABSOLUTE 0.00 (0.00-0.02); NRBC PERCENT 0.0 % (0.0-0.2); PLATELET COUNT,PLT 364 K/mm3 (150-400); RED BLOOD CELL COUNT 3.88 M/mm3 (4.52-5.90); WHITE BLOOD CELL COUNT,WBC 8.58 K/mm3 (3.9-11.3)
[2025-07-22 05:49] LABS: BLOOD UREA NITROGEN,BUN 28.0 mg/dL (7-18); CARBON DIOXIDE,CO2 26.0 mEq/L (21-32); CHLORIDE,CL 99.0 mEq/L (98-107); CREATININE 1.0 mg/dL (0.7-1.3); EST CRCL DRUG DOSING (CG) 72.12 mL/min; ESTIMATED GFR 83.0 mL/min (>60); GLUCOSE RANDOM 195.0 mg/dL (70-99); PHOSPHORUS 2.8 mg/dL (2.6-4.7); POTASSIUM,K 4.0 mEq/L (3.5-5.1); SODIUM,NA 133.0 mEq/L (136-145)
[2025-07-22 10:47] LABS: HEP B SURFACE AG Negative (Negative)
== END 2025-07-22 13:52 | disposition home or self-care (01) | DRG 871 ==
LOC: JD.ED 14:09 → JD.MS 18:08
PROVIDERS: ADMIT Family Medicine; ATTEND Student in an Organized Health Care Education/Training Program
DX: A41.9 Sepsis, unspecified organism (principal); I21.A1 Myocardial infarction type 2; J96.01 Acute respiratory failure with hypoxia; N39.0 Urinary tract infection, site not specified; E87.1 Hypo-osmolality and hyponatremia; H54.7 Unspecified visual loss; R65.20 Severe sepsis without septic shock; E87.8 Other disorders of electrolyte and fluid balance, not elsewhere classified; E86.0 Dehydration; N40.0 Benign prostatic hyperplasia without lower urinary tract symptoms; I10 Essential (primary) hypertension; M19.90 Unspecified osteoarthritis, unspecified site; F32.A Depression, unspecified; E11.9 Type 2 diabetes mellitus without complications; D64.9 Anemia, unspecified; Z85.038 Personal history of other malignant neoplasm of large intestine; Z79.899 Other long term (current) drug therapy; Z86.16 Personal history of COVID-19; Z98.890 Other specified postprocedural states
CPT/HCPCS: 36415; 71045; 74177; 80053; 80307; 81001; 83605; 83690; 84484; 85007; 85027; 85610; 86140; 87040 ×2; 87086; 93005; 96361; 96374; 96375; 99285; J0696; J2405; J2765; J7030; Q9967; 36410; 80048; 82947; 83735; 84100; 85025; 86803; 87340; 93010; 99223; 99232; 99239; A9270-GY; G0433; J1650; J2060; J3475; J3480; J3490; J7040

== ENCOUNTER 2025-07-25 09:05 | Inpatient (IN) | payer MEDICARE ==
[2025-07-25] MEDS ORDERED: Sodium Chloride 0.9% 10 ML Syringe FLUSH PRN (09:52)
[2025-07-25 09:57] LABS: BASOPHILS ABSOLUTE AUTO 0.1 K/mm3 (0.0-0.2); BASOPHILS PERCENT AUTO 0.3 % (0.0-1.0); EOSINOPHILS ABSOLUTE AUTO 0.1 K/mm3 (0.0-0.4); EOSINOPHILS PERCENT AUTO 0.6 % (0.0-6.0); IMMATURE GRAN ABSOLUTE AUTO 0.08 K/mm3 (0.00-0.05); IMMATURE GRAN PERCENT AUTO 0.5 % (0.0-0.4); LYMPHOCYTES ABSOLUTE AUTO 1.0 K/mm3 (1.0-4.8); LYMPHOCYTES PERCENT AUTO 5.9 % (24.0-44.0); MEAN PLATELET VOLUME 9.8 fl (9.4-12.4); MONOCYTES ABSOLUTE AUTO 0.8 K/mm3 (0.0-0.8); MONOCYTES PERCENT AUTO 4.8 % (0.0-8.0); NEUTROPHILS ABSOLUTE AUTO 14.1 K/mm3 (1.8-7.7); NEUTROPHILS PERCENT AUTO 87.9 % (41.0-71.0); NRBC ABSOLUTE 0.00 (0.00-0.02); NRBC PERCENT 0.0 % (0.0-0.2); PLATELET COUNT,PLT 453 K/mm3 (150-400); RED BLOOD CELL COUNT 4.25 M/mm3 (4.52-5.90); WHITE BLOOD CELL COUNT,WBC 16.01 K/mm3 (3.9-11.3)
[2025-07-25] MEDS: Ondansetron 4 MG/2 ML SDV IVPUSH ONE ×2 (09:57→12:48)
[2025-07-25] MEDS: Sodium Chloride 0.9% 10 ML Syringe FLUSH PRN ×2 (09:57→10:27)
[2025-07-25 10:10] LABS: A/G RATIO 0.7 (1-2); ALANINE AMINOTRANSFERASE,ALT 22.0 U/L (16-63); ASPARTATE AMNIOTRANSFERASE,AST 23.0 U/L (15-37); BILIRUBIN TOTAL 0.4 mg/dL (0.2-1.0); BLOOD UREA NITROGEN,BUN 29.0 mg/dL (7-18); CARBON DIOXIDE,CO2 30.0 mEq/L (21-32); CHLORIDE,CL 98.0 mEq/L (98-107); CREATININE 1.0 mg/dL (0.7-1.3); EST CRCL DRUG DOSING (CG) 67.94 mL/min; ESTIMATED GFR 83.0 mL/min (>60); GLUCOSE RANDOM 164.0 mg/dL (70-99); POTASSIUM,K 5.3 mEq/L (3.5-5.1); PROTEIN TOTAL,TP 7.5 g/dl (6.4-8.2); SODIUM,NA 136.0 mEq/L (136-145)
[2025-07-25] MEDS ORDERED: Iopamidol 612 MG/ML 100 ML Bottle IVPUSH ONE (10:15)
[2025-07-25 10:21] LABS: TROPONIN I HIGH SENSITIVITY 124.0 pg/mL (<=76)
[2025-07-25] MEDS: Iopamidol 612 MG/ML 100 ML Bottle IVPUSH ONE (10:28)
[2025-07-25 13:33] LABS: APPEARANCE,URINE CLEAR (Clear); GLUCOSE,URINE 3+ (Negative); OCCULT BLOOD,URINE TRACE-INTACT (Negative)
[2025-07-25] MEDS: Dicyclomine 20 MG/2 ML SDV IM ONE (13:57)
[2025-07-25 14:02] LABS: EPITHELIAL CELLS,URINE 0-5 /hpf (0-5)
[2025-07-25] MEDS: Insulin Lispro 100 Unit/ML 3 ML KwikPen SUBCUT SCH ×2 (16:56→17:21)
[2025-07-26 05:12] LABS: A/G RATIO 0.7 (1-2); ALANINE AMINOTRANSFERASE,ALT 17.0 U/L (16-63); ASPARTATE AMNIOTRANSFERASE,AST 24.0 U/L (15-37); BILIRUBIN TOTAL 0.7 mg/dL (0.2-1.0); BLOOD UREA NITROGEN,BUN 17.0 mg/dL (7-18); CARBON DIOXIDE,CO2 26.0 mEq/L (21-32); CHLORIDE,CL 100.0 mEq/L (98-107); CREATININE 0.9 mg/dL (0.7-1.3); EST CRCL DRUG DOSING (CG) 75.48 mL/min; ESTIMATED GFR 94.0 mL/min (>60); GLUCOSE RANDOM 69.0 mg/dL (70-99); POTASSIUM,K 4.1 mEq/L (3.5-5.1); PROTEIN TOTAL,TP 6.5 g/dl (6.4-8.2); SODIUM,NA 134.0 mEq/L (136-145)
[2025-07-26] MEDS: Magnesium Sulf/Wat 4 GM/50 mL 4 GM in Premix Bag 1 BAG IV ONE (06:38)
[2025-07-26] MEDS: Sennosides/Docusate Sodium 50-8.6 MG Tab PO SCH (12:43)
[2025-07-26] MEDS: Sucralfate Suspension 1 GM/10 ML Cup PO SCH (17:09)
[2025-07-27 06:30] LABS: A/G RATIO 0.6 (1-2); ALANINE AMINOTRANSFERASE,ALT 20.0 U/L (16-63); ASPARTATE AMNIOTRANSFERASE,AST 17.0 U/L (15-37); BILIRUBIN TOTAL 0.6 mg/dL (0.2-1.0); BLOOD UREA NITROGEN,BUN 16.0 mg/dL (7-18); CARBON DIOXIDE,CO2 27.0 mEq/L (21-32); CHLORIDE,CL 99.0 mEq/L (98-107); CREATININE 0.8 mg/dL (0.7-1.3); EST CRCL DRUG DOSING (CG) 84.92 mL/min; ESTIMATED GFR 98.0 mL/min (>60); GLUCOSE RANDOM 110.0 mg/dL (70-99); POTASSIUM,K 4.2 mEq/L (3.5-5.1); PROTEIN TOTAL,TP 6.4 g/dl (6.4-8.2); SODIUM,NA 132.0 mEq/L (136-145)
== END 2025-07-27 10:46 | disposition home or self-care (01) | DRG 74 ==
LOC: JD.ED 09:05 → JD.MS 13:59
PROVIDERS: ADMIT Family Medicine; ATTEND Family Medicine
DX: E11.43 Type 2 diabetes mellitus with diabetic autonomic (poly)neuropathy (principal); K29.70 Gastritis, unspecified, without bleeding; K20.90 Esophagitis, unspecified without bleeding; K44.9 Diaphragmatic hernia without obstruction or gangrene; E11.9 Type 2 diabetes mellitus without complications; H54.7 Unspecified visual loss; I10 Essential (primary) hypertension; M19.90 Unspecified osteoarthritis, unspecified site; F32.A Depression, unspecified; E83.42 Hypomagnesemia; E87.5 Hyperkalemia; R10.84 Generalized abdominal pain; R11.2 Nausea with vomiting, unspecified; E11.42 Type 2 diabetes mellitus with diabetic polyneuropathy; D64.9 Anemia, unspecified; R79.89 Other specified abnormal findings of blood chemistry; Z85.048 Personal history of other malignant neoplasm of rectum, rectosigmoid junction, and anus; Z86.16 Personal history of COVID-19; Z87.898 Personal history of other specified conditions; Z89.511 Acquired absence of right leg below knee; Z79.899 Other long term (current) drug therapy; Z79.4 Long term (current) use of insulin; Z79.891 Long term (current) use of opiate analgesic; Z79.84 Long term (current) use of oral hypoglycemic drugs
CPT/HCPCS: 36415; 71045; 74177; 80053; 81001; 83605; 83690; 83735; 83880; 84484; 85025; 93005; 96361; 96372; 96374; 96375; 96376; 99285; J0500; J2405 ×2; J2470; J2765; J7030 ×2; Q9967; 82947; 84100; 86140; 87338; 93010; 97161-GP; 97530-GP; A9270-GY; J1171; J3475; J7042